=== PATIENT | male | born 1950 | race Caucasian/White ===

== ENCOUNTER → 2016-05-20 | Outpatient (CLI) | payer OTHER ==
[~2016-05-20] MED LIST: CITA20TA4 PO; FLUT0.15 NEB; GABA300C19 PO; INSUINJ4 SC; LVQ750 PO; METF-384 PO; MOME200A INH; MULT-506 PO; NAPR-1168 PO; PRAV40TA2 PO; PRLSR20 PO
--- NOTE | 2016-05-20 13:40 | DIAGNOSTIC IMAGING REPORT ---
TWO VIEW CHEST CLINICAL HISTORY: Preoperative examination. FINDINGS: PA and lateral chest radiographs are compared to study dated 03/06/2016. The cardiomediastinal silhouette is unremarkable. A fat-containing hernia is again noted at the left lung base. There is mild atherosclerotic calcification of the thoracic aorta. The lungs appear hyperinflated and hyperlucent with flattening the diaphragm suggesting obstructive physiology. No airspace consolidation or pleural effusion is seen. There is no pneumothorax. The bony thorax appears intact. A left shoulder arthroplasty is in place. IMPRESSION: Findings suggest obstructive physiology. There is no active disease in the chest. Electronically signed by: Saleem Fregoso M.D. 05/20/2016 1:38 PM
[2016-05-20 14:35] LABS: BASO % 0.5 %; BASO ABS # 0.03 K/uL (0-0.2); COMPLETE YES; EOS % 1.3 %; HEMATOCRIT 42.7 % (42-52); IG% 0.2 %; LYMPH % 18.5 %; LYMPH ABS # 1.13 K/uL (1.2-3.4); MEAN CORPUSCULAR HEMOGLOBIN 30.3 pg (25-34); MEAN CORPUSCULAR HGB CONC 34.4 g/dl (32-36); MEAN PLATELET VOLUME 9.8 fL (7.4-10.4); MONO % 10.2 %; NEUT % 69.3 %; PLATELET COUNT 268 K/uL (130-400); RED BLOOD COUNT 4.85 M/uL (4.7-6.1)
[2016-05-20 15:10] LABS: BLOOD UREA NITROGEN 13 mg/dl (7-18); BUN/CREATININE RATIO 12.6 (10-20); CALCIUM 9.2 mg/dl (8.5-10.1); CARBON DIOXIDE 29 mmol/L (21-32); CHLORIDE 102 mmol/L (98-107); GLUCOSE 176 mg/dl (70-99); POTASSIUM 4.9 mmol/L (3.5-5.1); SODIUM 139 mmol/L (136-145)
== END | disposition home or self-care (01) ==
LOC: C.CPL 12:51
PROVIDERS: ATTEND Orthopaedic Surgery
DX: Z01.812 Encounter for preprocedural laboratory examination (principal); Z01.810 Encounter for preprocedural cardiovascular examination; M75.81 Other shoulder lesions, right shoulder

== ENCOUNTER 2024-03-27 20:00 | Inpatient (IN) ==
--- OUTSIDE RECORDS SUMMARY | 2024-03-27 20:07 | External Medical Summary | Summary of Care ---
Author Name Unknown Organization [facility] Address [address] [facility] [place] [address] Phone [phone] Care Team Providers Care Director Of Assessing Name Role Phone Rolando Schultz MD Primary Care Provider [phone]- [phone] Reason for Visit * Reason Comments eRx-Medication Refill Encounter Details Date Type Department Care Team (Late st Contact Info) Description 01/15/2024 Refill [facility] [address] [place] [id number] Kayla Reich PA-C [address] [place] [address] Type 2 diabetes mellitus with hemoglobin A1c goal of less than 8.0% ([facility]) Allergies No known active allergiesdocumented as of this encounter (statuses as of 01/16/2024) Medications Medication Sig Dispensed Refills Start Date End Date Status MULTIVITAMINS PO CAPS Take 1 Capsule by mouth in the morning. Active fluticasone (FLONASE) 50 MCG/ACT nasal sprayIndications:Chr onic rhinitis Administer 2 Sprays into each nostril daily. 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 To affacted area for two weeks. 15 g 2 8 Active Insulin Pen Needle (BD PEN NEEDLE SHORT U/F) 31G X 8 MM Use to inject insulin twice per day 100 Each 3 8 Active Insulin Pen Needle (PEN NEEDLES 5/16") 31G X 8 MM MISC Use to inject insulin 100 Each 5 8 Active selenium sulfide 2.5 % lotion Apply topically to affected area daily as needed for Itching. 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 90 Tablet 1 4 Active metFORMIN HCl 1000 MG Oral Tablet (Glucophage)Indicati ons:Diabetic polyneuropathy associated with type 2 diabetes mellitus (HCC) take 1 tablet by mouth twice a day (with morning and evening meal) 180 Tablet 3 4 Active Atorvastatin Calcium 40 MG Oral Tablet (Lipitor)Indications :Dyslipidemia, goal LDL below 70 Take 1 Tablet by mouth daily. In the morning. 90 Tablet 1 4 Active Montelukast Sodium 10 MG Oral Tablet (Singulair)Indicatio ns:PND (post-nasal drip) Take 1 Tablet by mouth in the morning. In the morning.. 90 Tablet 1 4 Active Naproxen Sodium 550 MG Oral TabletIndications:Ch ronic pain of both shoulders Take 1 Tablet by mouth in the morning and 1 Tablet before bedtime. 180 Tablet 1 4 Active Citalopram Hydrobromide 20 MG Oral Tablet (CeleXA)Indications: Major depressive disorder with single episode, remission status unspecified Take 1 Tablet by mouth at bedtime. 90 Tablet 1 4 Active Lisinopril 2.5 MG Oral Tablet (Prinivil)Indication s:Essential hypertension with goal blood pressure less than 140/90 Take 1 Tablet by mouth in the morning. In the morning.. 90 Tablet 1 4 Active Cyclobenzaprine HCl 5 MG Oral Tablet (Flexeril)Indication s:Spasm of muscle Take 1 Tablet by mouth at bedtime as needed for Muscle spasms (back pain). 30 Tablet 4 Active Diclofenac Sodium 1 % External Gel (Voltaren)Indication s:Arthritis of carpometacarpal (CMC) joint of right thumb Apply topically to affected area 4 times a day. Apply to thumbs when sore - rub in well 350 g 1 4 Active Ketoconazole 2 % External Shampoo (Nizoral)Indications :Dandruff Apply topically to affected area daily as needed for Itching. Wash scalp with lather for 2-3 minutes, then rinse.Apply topically to affected area daily as needed for Itching. Wash scalp with lather for 2-3 minutes, then rinse. 360 mL 1 4 Active Fish Oil 1000 MG Oral CapsuleIndications:A rthritis of carpometacarpal (CMC) joint of right thumb Take 1 Capsule by mouth in the morning. 90 Capsule 1 4 Active Dulera 200-5 MCG/ACT Inhalation Aerosol (Mometasone-Formoter ol)Indications:Respi ratory abnormality 2 puffs twice each day and rinse mouth after use 36 g 1 4 Active Aspirin 81 MG Oral Tablet Chewable Take 1 Tablet by mouth in the morning. with food.. 90 Tablet 1 4 Active Famotidine 10 MG Oral Tablet (Acid Driller Machine) Take 1 Tablet by mouth in the morning. 90 Tablet 1 4 Active Gabapentin 300 MG Oral Capsule (Neurontin)Indicatio ns:Diabetic polyneuropathy associated with type 2 diabetes mellitus (HCC) TAKE 4 CAPSULES BY MOUTH ONCE DAILY 360 Capsule 4 Active Ozempic (1 MG/DOSE) 4 MG/3ML Subcutaneous Solution Pen-injector (Semaglutide (1 MG/DOSE))Indications :Type 2 diabetes mellitus with hemoglobin A1c goal of less than 8.0% (HCC) INJECT 1MG UNDER THE SKIN EVERY 7 DAYS 9 mL 1 4 Active Ozempic (1 MG/DOSE) 4 MG/3ML Subcutaneous Solution Pen-injector (Semaglutide (1 MG/DOSE))Indications :Type 2 diabetes mellitus with hemoglobin A1c goal of less than 8.0% ([facility]) Inject 1 mg under the skin once a week. 9 mL 1 4 01/16/20 24 Discontinued documented as of this encounter (statuses as of 01/16/2024) Active Problems Problem Noted Date Diagnosed Date Major depressive disorder with single episode Food insecurity 01/29/2021 Overview: Per [facility] Protocol Ulnar neuropathy at elbow, right 09/03/2018 Type 2 diabetes mellitus wit h hemoglobin A1c goal of less than 8.0% 02/02/2018 Diabetic polyneuropathy asso ciated with type 2 diabetes mellitus 08/11/2017 Lumbar degenerative disc disease 03/14/2016 Essential hypertension with goal blood pressure less than 140/90 02/28/2016 Benign familial tremor 08/21/2015 Chronic rhinitis 05/22/2015 Chews tobacco 05/22/2015 Dyslipidemia, goal LDL below 70 documented as of this encounter (statuses as of 01/16/2024) Resolved Problems Problem Noted Date Diagnosed Date Resolved Date Encounter for long-term (cur rent) use of medications 08/11/2017 02/02/2018 Risk and functional assessment 08/11/2017 02/02/2018 Respiratory abnormality 02/17/201707/18 Sepsis 03/14/2016 02/11/2017 Pneumonitis 03/14/2016 02/11/2017 MRSA infection 02/28/2016 02/11/2017 Rotator cuff tear arthropathy 02/20/2016 02/11/2017 Acute pain of right shoulder 02/07/2016 02/11/2017 HTN, goal below 140/90 10/30/201502/27 Overview: Per [facility] Protocol Type 2 diabetes mellitus wit h other diabetic neurological complication 08/21/2015 08/11/2017 HTN, goal below 140/80 08/21/201511/01 Overview: Per [facility] Protocol Screening for prostate cancer 08/21/2015 02/11/2017 Overweight (BMI 25.0-29.9) 05/22/2015 0 02/11/2017 Overview: bmi= 28.17 05/22/15 Diabetes mellitus 08/21/2015 Depression 02/11/2017 Overview: never hospitalized documented as of this encounter (statuses as of 01/16/2024) Immunizations Name Administration Dates Next Due COVID-19 mRNA, LNP-s, No Pre serve, 2-Dose Series (Pfizer) 03/06/2021,08/31/2020,08/10/2020 Pneumococcal Conjugate Vacc, 13 Valent (Prevnar) 04/07/2014 Pneumococcal Polysaccharide PPV23 (Pneumovax) 06/07/2020,11/28/2014 Seasonal Influenza, PF, 6 M & above, IM , (FluLaval or Fluzone) 02/21/2020,03/26/2019,02/02/2018,01/1803/26/2020 Seasonal Influenza, Quadriva lent Hd (Fluzone Hd) 08/07/2023,02/11/2022,02/13/2021 Seasonal Influenza, Quadriva lent, No Preserve, IM 02/07/2016,03/10/2015 Seasonal Influenza, Trivalen t, (IIV3), with Preserv, (Fluzone) 02/04/2014,02/17/2012,01/25/2009,05/2002,03/26/2001 TD - Tetanus/Diptheria (ADULT) 03/03/2014 TDAP (age 10 and older)(Boostrix) 04/04/2018, Varicella Zoster Vaccine (Adult) 02/16/2014 documented as of this encounter Social History Tobacco Use Types Packs/Day Years Used Date Smoking Tobacco: Never Smokeless Tobacco: Current Snuff Comments:began at age 18, 1 1/2 cans per week Alcohol Use Standard Drinks/Week Comments No 0 (1 standard drink = 0.6 oz pur e alcohol) none PHQ-2 Answer Date Recorded PHQ-2 Score 0 02/21/2020 Hunger Vital Sign Answer Date Recorded Worried About Running Out of Food in the Last Ye ar Never true 11/17/2018 Ran Out of Food in the Last Year Never true 11/17/2018 Sex and Gender Information Value Date Recorded Sex Assigned at Male 01/02/2021 3:20 PM EDT Gender Identity Male 01/02/2021 3:20 PM EDT Sexual Orientation Straight 01/02/2021 3: 12 PM EDT Job Start Date Occupation Industry Not on file Not on file Not on file documented as of this encounter Miscellaneous Notes * Telephone Encounter - Pram[facility] - 01/16/2024 12:29 PM EDTSigned Prescriptions: Disp Refills Ozempic (1 MG/DOSE) 4 MG/3ML Subcutaneous *9 mL 1 Sig: INJECT 1MG UNDER THE SKIN EVERY 7 DAYSAuthorizing Provider: KAYLA REICH AOradela User: PRAMOD RYAN documented in this encounter Plan of Treatment Upcoming Encounters Date Type Department Care Team (Late st Contact Info) Description 09/03/2024 1:30 PM EDT Office Visit Dermatology [facility] [address] [facility] [place] [address] Corey Delcid MD [address] [place] [address] Health Maintenance Due Date Last Done Comments Cologuard 1997 Fecal Occult Blood Test 1997 Sigmoidoscopy 1997 Zoster Vaccines (2 of 3) 04/13/2014 02/16/2014 Adult Wellness Visit 2018 Depression Monitoring 02/20/2021 02/21/2020 Colonoscopy 10/07/2021 10/08/2011 Colorectal Cancer Screening 10/07/2021 COVID-19 Vaccine ( season) 2023 03/06/2021, 08/31/2020, 08/10/2020 Influenza Vaccine (FLU shot) (#1) 2024 08/07/2023, 02/11/2022, 02/13/2021, Additional history exists Diabetic Eye Exam 02/07/2024 02/06/2023, , 12/13/2021, Additional history exists HbA1c 03/05/2024 09/04/2023, 04/19, 09/17/2021, Additional history exists B-12 05/07/2024 05/07/2023, 07/18, 05/23/2020, Additional history exists GFR 05/07/2024 05/07/2023, 05/0 06/2021, 12/06/2020, Additional history exists Diabetic Foot Exam 08/06/2024 08/07/2023, 0 08/07/2023, 01/02/2021, Additional history exists Albumin/Creatinine Ratio 09/03/2024 024, 05/07/2023, 09/17/2021, Additional history exists DTap/Tdap Vaccines (4 - Td or Tdap) 04/04/2028 04/04/2018, 03/03/2014, 03/02/2014 Lipid Panel 05/07/2028 05/07/2023, 07/18, 05/23/2020, Additional history exists Pneumococcal Vaccine: 65+ Years Completed 06/07/2020, 11/28/2014, 04/07/2014 HPV (Gardasil) Vaccine Aged Out No lo nger eligible based on patient's age to complete this topic Hepatitis B Vaccine Aged Out No longe r eligible based on patient's age to complete this topic MENINGOCOCCAL (MENACTRA/MENVEO) Aged Out No longer eligible based on patient's age to complete this topic documented as of this encounter Medical Devices Implanted Type Area Sciences Dean Device Identifier Shelf Expiration Date Model / Serial / Lot Sut Dalton Biocomp 4.75mm Min5 - [id number] Implanted:Qty: 2 on 06/03/2016 by Mario Dunlap DO at OR [facility] Right: Shoulder [employer] 12/16/2017 AR-2324BCC T / / [id number] 4.75x19.1mm Suture Dalton Implanted:Qty: 1 on 06/03/2016 by Mario Dunlap DO at OR [facility] Right: Shoulder 12/16/2017 AR-2324BCC TT / / [id number] Dalton Suture Biocomposite - [id number] Implanted:Qty: 3 on 06/03/2016 by Mario Dunlap DO at OR [facility] Right: Shoulder [employer] 12/16/2017 AR-2324BCC / / [id number] documented as of this encounter Visit Diagnoses Diagnosis Type 2 diabetes mellitus with hemoglobin A1c goal of less than 8.0% (HCC) documented in this encounter Advance Directives * Full Code (Latest Code Status on File) Date Activated Date Inactivated Comments 09/14/2018 9:05 AM 09/14/2018 3:13 PM This order r eflects the patients wishes and were consensually agreed upon. * Full Code Date Activated Date Inactivated Comments 06/03/2016 11:26 AM 06/03/2016 5:26 PM This order reflects the patients wishes and were consensually agreed upon. Question Answer Comments Discussion of Advance Directives occurred with: Not Discussed Does the patient have a Living Will? No Does the patient have Health Care Power of Attor gab? No Care Teams Director Of Assessing Relationship Specialty Start Date End Date Rolando Schultz MD [address] [place] [address] PCP - General Family Medicine 10/28/17 documented as of this encounter
--- OUTSIDE RECORDS SUMMARY | 2024-03-27 20:07 | External Medical Summary | Summary of Care ---
Author Name Unknown Organization [facility] Address [address] [facility] [place] [address] Phone [phone] Care Team Providers Care Sponsorship Coordinator Name Role Phone Rolando Schultz MD Primary Care Provider +1- [phone] Encounter Details Date Type Department Care Team (Late st Contact Info) Description 02/05/2024 Population Health External Data Unspecified Department Allergies No known active allergiesdocumented as of this encounter (statuses as of 02/09/2024) Medications Medication Sig Dispensed Refills Start Date End Date Status MULTIVITAMINS PO CAPS Take 1 Capsule by mouth in the morning. Active fluticasone (FLONASE) 50 MCG/ACT nasal sprayIndications:Film Developer jesse rhinitis Administer 2 Sprays into each nostril daily. 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 To affacted area for two weeks. 15 g 2 02/02/2018 Active Insulin Pen Needle (BD PEN NEEDLE SHORT U/F) 31G X 8 MM Use to inject insulin twice per day 100 Each 3 04/27/2018 Active Insulin Pen Needle (PEN NEEDLES 5/16") 31G X 8 MM MISC Use to inject insulin 100 Each 5 04/27/2018 Active selenium sulfide 2.5 % lotion Apply topically to affected area daily as needed for Itching. 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 90 Tablet 1 08/07/2023 Active metFORMIN HCl 1000 MG Oral Tablet (Glucophage)Indicatio ns:Diabetic polyneuropathy associated with type 2 diabetes mellitus (HCC) take 1 tablet by mouth twice a day (with morning and evening meal) 180 Tablet 3 08/07/2023 Active Atorvastatin Calcium 40 MG Oral Tablet (Lipitor)Indications: Dyslipidemia, goal LDL below 70 Take 1 Tablet by mouth daily. In the morning. 90 Tablet 08/07/2023 Active Montelukast Sodium 10 MG Oral Tablet (Singulair)Indication s:PND (post-nasal drip) Take 1 Tablet by mouth in the morning. In the morning.. 90 Tablet 08/07/2023 Active Naproxen Sodium 550 MG Oral TabletIndications:Chr onic pain of both shoulders Take 1 Tablet by mouth in the morning and 1 Tablet before bedtime. 180 Tablet 08/07/2023 Active Citalopram Hydrobromide 20 MG Oral Tablet (CeleXA)Indications:M ajor depressive disorder with single episode, remission status unspecified Take 1 Tablet by mouth at bedtime. 90 Tablet 1 08/07/2023 Active Lisinopril 2.5 MG Oral Tablet (Prinivil)Indications :Essential hypertension with goal blood pressure less than 140/90 Take 1 Tablet by mouth in the morning. In the morning.. 90 Tablet 1 08/07/2023 Active Cyclobenzaprine HCl 5 MG Oral Tablet (Flexeril)Indications :Spasm of muscle Take 1 Tablet by mouth at bedtime as needed for Muscle spasms (back pain). 30 Tablet 08/07/2023 Active Diclofenac Sodium 1 % External Gel (Voltaren)Indications :Arthritis of carpometacarpal (CMC) joint of right thumb Apply topically to affected area 4 times a day. Apply to thumbs when sore - rub in well 350 g 1 08/07/2023 Active Ketoconazole 2 % External Shampoo (Nizoral)Indications: Dandruff Apply topically to affected area daily as needed for Itching. Wash scalp with lather for 2-3 minutes, then rinse.Apply topically to affected area daily as needed for Itching. Wash scalp with lather for 2-3 minutes, then rinse. 360 mL 1 08/07/2023 Active Fish Oil 1000 MG Oral CapsuleIndications:Ar thritis of carpometacarpal (CMC) joint of right thumb Take 1 Capsule by mouth in the morning. 90 Capsule 1 08/07/2023 Active Dulera 200-5 MCG/ACT Inhalation Aerosol (Mometasone-Formotero l)Indications:Respira tory abnormality 2 puffs twice each day and rinse mouth after use 36 g 1 08/07/2023 Active Aspirin 81 MG Oral Tablet Chewable Take 1 Tablet by mouth in the morning. with food.. 90 Tablet 1 08/07/2023 Active Famotidine 10 MG Oral Tablet (Acid Product Expert) Take 1 Tablet by mouth in the morning. 90 Tablet 1 08/07/2023 Active Gabapentin 300 MG Oral Capsule (Neurontin)Indication s:Diabetic polyneuropathy associated with type 2 diabetes mellitus (HCC) TAKE 4 CAPSULES BY MOUTH ONCE DAILY 360 Capsule 12/17/2023 Active Ozempic (1 MG/DOSE) 4 MG/3ML Subcutaneous Solution Pen-injector (Semaglutide (1 MG/DOSE))Indications: Type 2 diabetes mellitus with hemoglobin A1c goal of less than 8.0% (HCC) INJECT 1MG UNDER THE SKIN EVERY 7 DAYS 9 mL 1 01/16/2024 Active documented as of this encounter (statuses as of 02/09/2024) Active Problems Problem Noted Date Diagnosed Date Major depressive disorder with single episode Food insecurity 01/29/2021 Overview: Per [facility] Protocol Ulnar neuropathy at elbow, right [...] as of this encounter (statuses as of 02/09/2024) Resolved Problems Problem Noted Date Diagnosed Date [...] as of this encounter (statuses as of 02/09/2024) Immunizations Name Administration Dates Next Due COVID-19 mRNA, LNP-s, No Pre serve, 2-Dose Series (Ubisense) 03/06/2021,08/31/2020,08/10/2020 Pneumococcal Conjugate Vacc, 13 Valent (Prevnar) 04/07/2014 Pneumococcal Polysaccharide PPV23 (Pneumovax) 06/07/2020,11/28/2014 Seasonal Influenza, PF, 6 M & above, IM , (FluLaval or Fluzone) 02/21/2020,03/26/2019,02/02/2018,01/1803/26/2020 Seasonal Influenza, Quadriva lent Hd (Fluzone Hd) 08/07/2023,02/11/2022,02/13/2021 Seasonal Influenza, Quadriva lent, No Preserve, IM 02/07/2016,03/10/2015 Seasonal Influenza, Trivalen t, (IIV3), with Preserv, (Fluzone) 02/04/2014,02/17/2012,01/25/2009,06/05/2002,03/26/2001 TD - Tetanus/Diptheria (ADULT) 03/03/2014 TDAP (age [...] on file documented as of this encounter Plan of Treatment Upcoming Encounters Date Type Department Care Team (Late st Contact Info) Description 09/03/2024 1:30 PM EDT Office Visit [facility] [address] [place] [address] Corey Delcid MD [address] [place] [address] Health Maintenance Due Date Last Done Comments Cologuard 1997 Fecal Occult Blood Test 1997 Sigmoidoscopy 1997 Zoster Vaccines (2 of 3) 04/13/2014 02/16/2014 Adult Wellness Visit 2018 Depression Monitoring 02/20/2021 02/21/2020 Colonoscopy 10/07/2021 10/08/2011 Colorectal Cancer Screening 10/07/2021 COVID-19 Vaccine ( season) 2024 03/06/2021, 08/31/2020, 08/10/2020 Influenza Vaccine (FLU shot) (#1) 2024 08/07/2023, 02/11/2022, 02/13/2021, Additional history exists Diabetic Eye Exam 02/07/2024 02/06/2023, , 12/13/2021, Additional history exists HbA1c 03/05/2024 09/04/2023, 04/19, 09/17/2021, Additional history exists B-12 05/07/2024 05/07/2023, 2 08/2021, 05/23/2020, Additional history exists GFR 05/07/2024 05/07/2023, [...] this encounter Medical Devices Implanted Type Area Real Estate Broker Device Identifier Shelf Expiration Date Model / Serial / Lot Sut Graham Biocomp 4.75mm Min5 - [id number] Implanted:Qty: 2 on 06/03/2016 by Mario Dunlap DO at OR [facility] Right: Shoulder [employer] 12/16/2017 AR-2324BCC T / / [id number] 4.75x19.1mm Suture Graham Implanted:Qty: 1 on 06/03/2016 by Mario Dunlap DO at OR [facility] Right: Shoulder 12/16/2017 AR-2324BCC TT / / [id number] Graham Suture Biocomposite - [id number] Implanted:Qty: 3 on 06/03/2016 by Mario Dunlap DO at OR [facility] Right: Shoulder [employer] 12/16/2017 AR-2324BCC / / [id number] documented as of this encounter Advance Directives * Full Code [...] Power of Attor gab? No Care Teams Sponsorship Coordinator Relationship Specialty Start Date End Date Rolando Schultz MD [address] [place] [address] PCP - General Family Medicine 10/28/17 documented as of this encounter
--- OUTSIDE RECORDS SUMMARY | 2024-03-27 20:07 | External Medical Summary | Summary of Care ---
Author Name Unknown Organization [facility] Address [address] [facility] [place] [address] Phone [phone] Care Team Providers Care Coconut Candy Maker Name Role Phone Rolando Schultz MD Primary Care Provider +1- [phone] Reason for Visit * Reason Comments eRx-Medication Refill Encounter Details Date Type Department Care Team (Late st Contact Info) Description 03/11/2024 Refill [facility] [address] [place] [id number] Kayla Reich PA-C [address] [place], [place] [id number] Diabetic polyneuropathy associated with type 2 diabetes mellitus (HCC) Allergies No known active allergiesdocumented as of this encounter (statuses as of 03/12/2024) Medications Medication Sig Dispensed Refills Start Date [...] daily 90 Each 11 8 Active nystatin 894863 UNIT/GM ointmentIndications: Cutaneous candidiasis Apply topically to [...] and rinse mouth after use 36 g 4 Active Aspirin 81 MG Oral Tablet Chewable Take 1 Tablet by mouth in the morning. with food.. 90 Tablet 1 4 Active Famotidine 10 MG Oral Tablet (Acid Banjo Repair Person) Take 1 Tablet by mouth in the morning. 90 Tablet 1 4 Active Ozempic (1 MG/DOSE) 4 MG/3ML Subcutaneous Solution Pen-injector (Semaglutide (1 MG/DOSE))Indications :Type 2 diabetes mellitus with hemoglobin A1c goal of less than 8.0% ([facility]) INJECT 1MG UNDER THE SKIN EVERY 7 DAYS 9 mL 1 4 Active Gabapentin 300 MG Oral Capsule (Neurontin)Indicatio ns:Diabetic polyneuropathy associated with type 2 diabetes mellitus (HCC) TAKE 4 CAPSULES BY MOUTH ONCE DAILY 360 Capsule 4 Active Gabapentin 300 MG Oral Capsule (Neurontin)Indicatio ns:Diabetic polyneuropathy associated with type 2 diabetes mellitus (HCC) TAKE 4 CAPSULES BY MOUTH ONCE DAILY 360 Capsule 4 03/12/20 24 Discontinued documented as of this encounter (statuses as of 03/12/2024) Active Problems Problem Noted Date Diagnosed Date [...] as of this encounter (statuses as of 03/12/2024) Resolved Problems Problem Noted Date Diagnosed Date Resolved Date Encounter for long-term (cur rent) use of medications 08/11/2017 02/02/2018 Risk and functional assessment 08/11/2017 02/02/2018 Respiratory abnormality 02/17/2017 03/2 10/2017 Sepsis 03/14/2016 02/11/2017 Pneumonitis 03/14/2016 02/11/2017 MRSA [...] as of this encounter (statuses as of 03/12/2024) Immunizations Name Administration Dates Next Due COVID-19 mRNA, LNP-s, No Pre serve, 2-Dose Series ([facility]) 03/06/2021,08/31/2020,08/10/2020 Pneumococcal Conjugate Vacc, 13 Valent (Prevnar) 04/07/2014 Pneumococcal Polysaccharide PPV23 (Pneumovax) 06/07/2020,11/28/2014 Seasonal Influenza Vac., MDV , IM, 0.5 mL (Fluzone) 02/04/2014,02/17/2012,01/25/2009,05/2002,03/26/2001 Seasonal Influenza, PF, 6 M & above, IM , (FluLaval or Fluzone) 02/21/2020,03/26/2019,02/02/2018,01/1803/26/2020 Seasonal Influenza, Quadriva lent Hd (Fluzone Hd) 08/07/2023,02/11/2022,02/13/2021 Seasonal Influenza, Quadriva lent, No Preserve, IM 02/07/2016,03/10/2015 TD - Tetanus/Diptheria (ADULT) 03/03/2014 TDAP (age [...] encounter Miscellaneous Notes * Telephone Encounter - Kayla Reich PA-C - 03/12/2024 4:20 PM EDTSigned Prescriptions: Disp Refills Gabapentin 300 MG Oral Capsule (Neurontin) 360 Ca*0 Sig: TAKE 4 CAPSULES BY MOUTH ONCE DAILY Authorizing Provider: KAYLA REICH * Telephone Encounter - Shannon Chang LPN - 03/12/2024 8:21 AM EDTPending Prescriptions: Disp Refills Gabapentin 300 MG Oral Capsule 360 Ca*0 Sig: TAKE 4 CAPSULES BY MOUTH ONCE DAILY * Telephone Encounter - Susana Harvey - 03/11/2024 1:06 PM EDTPending Prescriptions: Disp Refills Gabapentin 300 MG Oral Capsule 360 Ca*0 Sig: TAKE 4 CAPSULES BYMOUTH ONCE DAILY documented in this encounter Plan of Treatment Upcoming Encounters Date Type Department Care Team (Late [facility]) Description 09/03/2024 1:30 PM EDT Office Visit Dermatology [facility] [address] [place] [address] Corey Delcid MD [address] [place] [address] Health Maintenance Due Date Last Done Comments Cologuard 1997 Fecal Occult Blood Test 1997 Sigmoidoscopy 1997 Zoster Vaccines (2 of 3) 04/13/2014 02/16/2014 Adult Wellness Visit 2018 Depression Monitoring 02/20/2021 02/21/2020 Colonoscopy 10/07/2021 10/08/2011 Colorectal Cancer Screening 10/07/2021 COVID-19 Vaccine ( season) 2024 03/06/2021, 08/31/2020, 08/10/2020 Influenza Vaccine (FLU shot) (#1) 2024 08/07/2023, 02/11/2022, 02/13/2021, Additional history exists HbA1c 03/05/2024 09/04/2023, 04/19, 09/17/2021, Additional history exists B-12 05/07/2024 05/07/2023, 07/18, 05/23/2020, Additional history exists GFR 05/07/2024 05/07/2023, 05/0 06/2021, 12/06/2020, Additional history exists Diabetic Foot Exam 08/06/2024 08/07/2023, 0 08/07/2023, 01/02/2021, Additional history exists Albumin/Creatinine Ratio 09/03/2024 024, 05/07/2023, 09/17/2021, Additional history exists Diabetic Eye Exam 02/08/2025 02/09/2024, , 02/09/2024 (Done elsewhere), Additional history exists DTap/Tdap Vaccines (4 - [...] this encounter Medical Devices Implanted Type Area Spin Table Operator Device Identifier Shelf Expiration Date Model / Serial / Lot Sut Sedan Biocomp 4.75mm Min5 - [id number] Implanted:Qty: 2 on 06/03/2016 by Mario Dunlap DO at OR [facility] Right: Shoulder [employer] 12/16/2017 AR-2324BCC T / / [id number] 4.75x19.1mm Suture Sedan Implanted:Qty: 1 on 06/03/2016 by Mario Dunlap DO at OR [facility] Right: Shoulder 12/16/2017 AR-2324BCC TT / / [id number] Sedan Suture Biocomposite - [id number] Implanted:Qty: 3 on 06/03/2016 by Mario Dunlap DO at OR [facility] Right: Shoulder [employer] 12/16/2017 AR-2324BCC / / [id number] documented as of this encounter Visit Diagnoses Diagnosis Diabetic polyneuropathy associated with type 2 diabetes mellitus (HCC) documented in this encounter Advance Directives [...] Power of Attor gab? No Care Teams Coconut Candy Maker Relationship Specialty Start Date End Date Rolando Schultz MD [address] [place] [address] PCP - General Family Medicine 10/28/17 documented as of this encounter
--- OUTSIDE RECORDS SUMMARY | 2024-03-27 20:07 | External Medical Summary | Summary of Care ---
Author Name Unknown Organization [facility] Address [address] [facility] [place] [address] Phone [phone] Care Team Providers Care Commercial Loan Collection Officer Name Role Phone Rolando Schultz MD Primary Care Provider +1- [phone] Reason for Visit * Reason Onset Date Comments Health Maintenance 02/12/2024 Encounter Details Date Type Department Care Team (Late st Contact Info) Description 02/12/2024 Telephone [facility] [address] [place] [address] Rolando Schultz MD [address] [place] [address] Health Maintenance Allergies No known active allergiesdocumented as of this encounter (statuses as of 02/12/2024) Medications Medication Sig Dispensed Refills Start Date End Date Status MULTIVITAMINS PO CAPS Take 1 Capsule by mouth in the morning. Active fluticasone (FLONASE) 50 MCG/ACT nasal sprayIndications:Material Handler Floorperson jesse rhinitis Administer 2 Sprays into each nostril daily. 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 90 Tablet 08/07/2023 Active metFORMIN HCl 1000 MG Oral [...] Tablet by mouth at bedtime. 90 Tablet 08/07/2023 Active Lisinopril 2.5 MG Oral Tablet (Prinivil)Indications :Essential hypertension with goal blood pressure less than 140/90 Take 1 Tablet by mouth in the morning. In the morning.. 90 Tablet 08/07/2023 Active Cyclobenzaprine HCl 5 MG Oral [...] Active Famotidine 10 MG Oral Tablet (Acid Dean Of Men) Take 1 Tablet by mouth in the [...] as of this encounter (statuses as of 02/12/2024) Active Problems Problem Noted Date Diagnosed Date [...] as of this encounter (statuses as of 02/12/2024) Resolved Problems Problem Noted Date Diagnosed Date [...] as of this encounter (statuses as of 02/12/2024) Immunizations Name Administration Dates Next Due COVID-19 mRNA, LNP-s, No Pre serve, 2-Dose Series ([facility] 03/06/2021,08/31/2020,08/10/2020 Pneumococcal Conjugate Vacc, 13 Valent (Prevnar) [...] encounter Miscellaneous Notes * Telephone Encounter - Arleen ZavalaALEJANDRO - 02/12/2024 8:17 AM EDT Care Gaps Comprehensive Care Outreach Last Office/Telemedicine Visit: 08/07/2023 (in office), Visit date not found (telemedicine) Next Office Visit: Visit date not found Hemoglobin AIC Results: Lab Results Component Value Date/Time HEMOGLOBIN A1C - [facility] 7.7 (H) 09/04/2023 10:54 AM HEMOGLOBIN A1C - [facility] 8.2 (H) 05/07/2023 11:04 AM HEMOGLOBIN A1C - [facility] 7.5 (H) 09/17/2021 01:30 PM HEMOGLOBIN A1C - [facility] 7.9 (H) 05/23/2020 08:56 AM HEMOGLOBIN A1C - [facility] 7.7 (H) 12/01/2019 11:59 AM HEMOGLOBIN A1C - [facility] 7.7 (H) 01/28/2019 09:08 AM BP Readings from Last 1 Encounters: 08/07/23 130/62 Reviewed Health Maintenance below: Health Maintenance Topic Date Due Zoster Vaccines (2 of 3) 04/13/2014 Adult Wellness Visit Never done Depression Monitoring 02/20/2021 Colorectal Cancer Screening 10/07/2021 Influenza Vaccine (FLU shot) (1) 01/18/2024 COVID-19 Vaccine ( season) 2024 HbA1c 03/05/2024 GFR 05/07/2024 B-12 05/07/2024 Ov 6 months now Labs now and dec colon Care Gap Outreach Action Taken: Left message documented in this encounter Plan of Treatment Upcoming Encounters Date Type Department Care Team (Late st Contact Info) Description 09/03/2024 1:30 PM EDT Office Visit Dermatology [facility] [place] [address] [facility] [place] [address] Corey Delcid MD [address] [facility] [place] [address] Health Maintenance Due Date Last Done Comments [...] 05/23/2020, Additional history exists GFR 05/07/2024 05/07/2023, 06/2021, 12/06/2020, Additional history exists Diabetic Foot Exam 08/06/2024 08/07/2023, 0 08/07/2023, 01/02/2021, Additional history exists Albumin/Creatinine Ratio 09/03/2024 024, 05/07/2023, 09/17/2021, Additional history exists Diabetic Eye Exam 02/08/2025 02/09/2024 (Do ne elsewhere), 02/06/2023, 02/06/2023, Additional history exists DTap/Tdap Vaccines (4 - [...] this encounter Medical Devices Implanted Type Area Tennis Ball Coverer Hand Device Identifier Shelf Expiration Date Model / Serial / Lot Sut [place] Biocomp 4.75mm Min5 - [id number] Implanted:Qty: 2 on 06/03/2016 by Mario Dunlap DO at OR [facility] Right: Shoulder [employer] 12/16/2017 AR-2324BCC T / / [id number] 4.75x19.1mm Suture [place] Implanted:Qty: 1 on 06/03/2016 by Mario Dunlap DO at OR [facility] Right: Shoulder 12/16/2017 AR-2324BCC TT / / [id number] [place] Suture Biocomposite - [id number] Implanted:Qty: 3 on 06/03/2016 by Mario Dunlap, at OR [facility] Right: Shoulder [employer] 12/16/2017 AR-2324BCC / / [id number] documented as of this encounter Advance Directives [...] Power of Attor gab? No Care Teams Commercial Loan Collection Officer Relationship Specialty Start Date End Date Rolando Schultz MD [address] [place] [address] PCP - General Family Medicine 10/28/17 documented as of this encounter
--- OUTSIDE RECORDS SUMMARY | 2024-03-27 20:07 | External Medical Summary | Summary of Care ---
Author Name Unknown Organization [facility] Address [address] [facility] [place] [address] Phone [phone] Care Team Providers Care Cleaning Professional Name Role Phone Rolando Schultz MD Primary Care Provider +1- [phone] Reason for Visit * Reason Onset Date Comments Medication Refill 12/16/2023 Encounter Details Date Type Department Care Team (Late st Contact Info) Description 12/16/2023 Refill [facility] [address] [place] [address] Rolando Schultz MD [address] [place] [address] Diabetic polyneuropathy associated with type 2 diabetes mellitus (HCC) Allergies No known active allergiesdocumented as of this encounter (statuses as of 12/17/2023) Medications Medication Sig Dispensed Refills Start Date [...] daily 90 Each 11 10/08/2017 Active nystatin 171242 UNIT/GM ointmentIndications: Cutaneous candidiasis Apply topically to [...] armpits daily 118 mL 5 11/04/2018 Active Symtavision ULTRA STRPIndications:Type 2 diabetes mellitus with other diabetic neurological complication (HCC) USE TO TEST BLOOD GLUCOSE 4 TIMES DAILY NEEDED FOR HIGH OR LOW SUGAR 400 Strip 3 12/15/2019 Active Empagliflozin 25 MG Oral Tablet (Jardiance)Indicatio ns:Type 2 diabetes mellitus with hemoglobin A1c goal of less than 8.0% (HCC) Take 1 Tablet by mouth in the morning. 90 Tablet 08/07/2023 Active metFORMIN HCl 1000 MG Oral Tablet (Glucophage)Indicati ons:Diabetic polyneuropathy associated with type 2 diabetes mellitus (HCC) take 1 tablet by mouth twice a day (with morning and evening meal) 180 Tablet 08/07/2023 Active Atorvastatin Calcium 40 MG Oral Tablet (Lipitor)Indications :Dyslipidemia, goal LDL below 70 Take 1 Tablet by mouth daily. In the morning. 90 Tablet 1 08/07/2023 Active Montelukast Sodium 10 MG Oral Tablet (Singulair)Indicatio ns:PND (post-nasal drip) Take 1 Tablet by mouth in the morning. In the morning.. 90 Tablet 08/07/2023 Active Naproxen Sodium 550 MG Oral TabletIndications:Ch ronic pain of both shoulders Take 1 Tablet by mouth in the morning and 1 Tablet before bedtime. 180 Tablet 08/07/2023 Active Citalopram Hydrobromide 20 MG Oral Tablet (CeleXA)Indications: Major depressive disorder with single episode, remission status unspecified Take 1 Tablet by mouth at bedtime. 90 Tablet 1 08/07/2023 Active Lisinopril 2.5 MG Oral Tablet (Prinivil)Indication [...] sore - rub in well 350 g 08/07/2023 Active Ketoconazole 2 % External Shampoo (Nizoral)Indications :Dandruff Apply topically to affected area daily as needed for Itching. Wash scalp with lather for 2-3 minutes, then rinse.Apply topically to affected area daily as needed for Itching. Wash scalp with lather for 2-3 minutes, then rinse. 360 mL 08/07/2023 Active Fish Oil 1000 MG Oral CapsuleIndications:A rthritis of carpometacarpal (CMC) joint of right thumb Take 1 Capsule by mouth in the morning. 90 Capsule 08/07/2023 Active Ozempic (1 MG/DOSE) 4 MG/3ML Subcutaneous Solution Pen-injector (Semaglutide (1 MG/DOSE))Indications :Type 2 diabetes mellitus with hemoglobin A1c goal of less than 8.0% ([facility]) Inject 1 mg under the skin once a week. 9 mL 08/07/2023 Active Dulera 200-5 MCG/ACT Inhalation Aerosol (Mometasone-Formoter ol)Indications:Respi ratory abnormality 2 puffs twice each day and rinse mouth after use 36 g 08/07/2023 Active Aspirin 81 MG Oral Tablet Chewable Take 1 Tablet by mouth in the morning. with food.. 90 Tablet 08/07/2023 Active Famotidine 10 MG Oral Tablet (Acid Meter Tester) Take 1 Tablet by mouth in the morning. 90 Tablet 08/07/2023 Active Gabapentin 300 MG Oral Capsule (Neurontin)Indicatio ns:Diabetic polyneuropathy associated with type 2 diabetes mellitus (HCC) TAKE 4 CAPSULES BY MOUTH ONCE DAILY 360 Capsule 12/17/2023 Active Gabapentin 300 MG Oral Capsule (Neurontin)Indicatio ns:Diabetic polyneuropathy associated with type 2 diabetes mellitus (HCC) TAKE 4 CAPSULES BY MOUTH ONCE DAILY 120 Capsule 11/17/2023 12/16/19 24 Discontinu ed(Refill) documented as of this encounter (statuses as of 12/17/2023) Active Problems Problem Noted Date Diagnosed Date [...] as of this encounter (statuses as of 12/17/2023) Resolved Problems Problem Noted Date Diagnosed Date [...] as of this encounter (statuses as of 12/17/2023) Immunizations Name Administration Dates Next Due COVID-19 mRNA, LNP-s, No Pre serve, 2-Dose Series (Pfizer) 03/06/2021,08/31/2020,08/10/2020 Pneumococcal Conjugate Vacc, 13 Valent (Prevnar) 04/07/2014 Pneumococcal Polysaccharide PPV23 (Pneumovax) 06/07/2020,11/28/2014 Seasonal Influenza, PF, 6 M & above, IM , (FluLaval or Fluzone) 02/21/2020,03/26/2019,02/02/2018,01/1803/26/2020 Seasonal Influenza, Quadriva lent Hd (Fluzone Hd) 08/07/2023,02/11/2022,02/13/2021 Seasonal Influenza, Quadriva lent, No Preserve, IM 02/07/2016,03/10/2015 Seasonal Influenza, Split, I IV3, With Preserve, Inj 02/04/2014,02/17/2012,01/25/2009,06/05/2002,03/26/2001 TD - Tetanus/Diptheria (ADULT) 03/03/2014 TDAP [...] Telephone Encounter - Kayla Reich PA-C - 12/17/2023 4:38 PM EDTSigned Prescriptions: Disp Refills Gabapentin 300 MG Oral Capsule (Neurontin) 360 Ca*0 Sig: TAKE 4 CAPSULES BY MOUTH ONCE DAILY Authorizing Provider: KAYLA REICH * Telephone Encounter - Rolando Schultz MD - 12/17/2023 4:37 PM EDTPending Prescriptions: Disp Refills Gabapentin 300 MG Oral Capsule (Neurontin) 360 Ca*0 Sig: TAKE 4 CAPSULES BY MOUTH ONCE DAILY * Telephone Encounter - Shannon Chang LPN - 12/17/2023 1:08 PM EDTPending Prescriptions: Disp Refills Gabapentin 300 MG Oral Capsule (Neurontin) 360 Ca*0 Sig: TAKE 4 CAPSULES BY MOUTH ONCE DAILY * Telephone Encounter - Susana Harvey - 12/16/2023 11:33 PM EDTPending Prescriptions: Disp Refills Gabapentin 300 MG Oral Capsule (Neurontin) 120 Ca*0 Sig: TAKE 4CAPSULES BY MOUTH ONCE DAILY documented in this encounter Plan of Treatment Upcoming Encounters Date Type Department Care Team (Late st Contact Info) Description 09/03/2024 1:30 PM EDT Office Visit Dermatology [facility] [place] [address] [place] [address] Corey Delcid MD [address] [facility] [place] [address] Health Maintenance Due Date Last Done Comments Cologuard 1997 Fecal Occult Blood Test 1997 Sigmoidoscopy 1997 Zoster Vaccines (2 of 3) 04/13/2014 02/16/2014 Depression Monitoring 02/20/2021 02/21/2020 Colonoscopy 10/07/2021 10/08/2011 [...] 09/03/2024 024, 05/07/2023, 09/17/2021, Additional history exists DTaP,Tdap,and Td Vaccines (4 - Td or Tdap) 04/04/2028 04/04/2018, 03/03/2014, 03/02/2014 Lipid Panel 05/07/2028 05/07/2023, 07/18, 05/23/2020, Additional history exists Hepatitis C Screening Completed 02/22/2016 *BASELINE EKG FOR HTN Completed 11/17/2018, 017 Pneumococcal Vaccine: 65+ Years Completed 06/07/2020, 11/28/2014, [...] this encounter Medical Devices Implanted Type Area Management Instructor Device Identifier Shelf Expiration Date Model / Serial / Lot Sut [place] Biocomp 4.75mm Min5 - [id number] Implanted:Qty: 2 on 06/03/2016 by Mario Dunlap DO at OR [facility] Right: Shoulder [employer] 12/16/2017 AR-2324BCC T / / [id number] 4.75x19.1mm Suture [place] Implanted:Qty: 1 on 06/03/2016 by Mario Dunlap DO at OR [facility] Right: Shoulder 12/16/2017 AR-2324BCC TT / / [id number] [place] Suture Biocomposite - [id number] Implanted:Qty: 3 on 06/03/2016 by Mario Dunlap DO at OR [facility] Right: Shoulder [employer] 12/16/2017 AR-2324BCC / / [id number] documented as of this encounter Visit Diagnoses [...] Power of Attor gab? No Care Teams Cleaning Professional Relationship Specialty Start Date End Date Rolando Schultz MD [address] [place] [address] PCP - General Family Medicine 10/28/17 documented as of this encounter
--- OUTSIDE RECORDS SUMMARY | 2024-03-27 20:07 | External Medical Summary | Summary of Care ---
Author Name Unknown Organization [facility] Address [address] [facility] [place] [address] Phone [phone] Care Team Providers Care Quality Facilitator Name Role Phone Rolando Schultz MD Primary Care Provider +1- [phone] Encounter Details Date Type Department Care Team (Late st Contact Info) Description 02/18/2024 Orders Only [facility] [address] [place] [address] Kayla Reich PA-C [address] [place] [address] Allergies No known active allergiesdocumented as of this encounter (statuses as of 02/18/2024) Medications Medication Sig Dispensed Refills Start Date End Date Status MULTIVITAMINS PO CAPS Take 1 Capsule by mouth in the morning. Active fluticasone (FLONASE) 50 MCG/ACT nasal sprayIndications:Director Day Care Center jesse rhinitis Administer 2 Sprays into each nostril daily. 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) Test bsg 2 - 3 times daily 90 Each 11 10/08/2017 Active nystatin 397128 UNIT/GM ointmentIndications:C utaneous candidiasis Apply topically to [...] armpits daily 118 mL 5 11/04/2018 Active Zapa ULTRA STRPIndications:Type 2 diabetes mellitus with other [...] Active Famotidine 10 MG Oral Tablet (Acid Coding Assistant) Take 1 Tablet by mouth in the [...] as of this encounter (statuses as of 02/18/2024) Active Problems Problem Noted Date Diagnosed Date Major depressive disorder with single episode Food insecurity 01/29/2021 Overview: Per [facility] Protocol Ulnar neuropathy at elbow, right [...] as of this encounter (statuses as of 02/18/2024) Resolved Problems Problem Noted Date Diagnosed Date [...] as of this encounter (statuses as of 02/18/2024) Immunizations Name Administration Dates Next Due COVID-19 [...] State Cheryl Vasquez [address] [place] [address] Corey Delcid MD [address] [place] [address] [address] Health Maintenance Due Date Last Done Comments [...] 09/17/2021, Additional history exists Diabetic Eye Exam 02/17/2025 02/09/2024, (Done elsewhere), 02/06/2023, Additional history exists DTap/Tdap Vaccines (4 [...] this encounter Medical Devices Implanted Type Area Cutting Department Supervisor Device Identifier Shelf Expiration Date Model / Serial / Lot Sut [place] Biocomp 4.75mm Min5 - [id number] Implanted:Qty: 2 on 06/03/2016 by Mario Dunlap DO at OR [facility] Right: Shoulder [employer] 12/16/2017 AR-2324BCC T / / [id number] 4.75x19.1mm Suture [place] Implanted:Qty: 1 on 06/03/2016 by Mario Dunlap DO at OR [facility] Right: Shoulder 12/16/2017 AR-2324BCC TT / / [id number] [place] Suture Biocomposite - [id number] Implanted:Qty: 3 on 06/03/2016 by Mario Dunlap DO at OR [facility] [address] Right: Shoulder [employer] 12/16/2017 AR-2324BCC / / [id number] documented as of this encounter Procedures Procedure Name Priority Date/Time Associated Diagnosis Comments DIABETIC EYE EXAM Routine 02/09/2024 documented in this encounter Results * DIABETIC EYE EXAM (02/09/2024) 02/09/2024 History Per Patient OTHER OUTSIDE LAB (SEE SCANNED REPORT) documented in this encounter Advance Directives * [...] Power of Attor gab? No Care Teams Quality Facilitator Relationship Specialty Start Date End Date Rolando Schultz MD [address] [place] [id number] PCP - General Family Medicine 10/28/17 documented as of this encounter
--- OUTSIDE RECORDS SUMMARY | 2024-03-27 20:07 | External Medical Summary | Summary of Care ---
Author Name Unknown Organization [facility] Address [address] [facility] [place] [address] Phone [phone] Care Team Providers Care Radio Antenna Installer Name Role Phone Rolando Schultz MD Primary Care Provider +1- [phone] Encounter Details Date Type Department Care Team (Late st Contact Info) Description 03/02/2024 Population Health External Data Unspecified Department Allergies No known active allergiesdocumented as of this encounter (statuses as of 03/03/2024) Medications Medication Sig Dispensed Refills Start Date End Date Status MULTIVITAMINS PO CAPS Take 1 Capsule by mouth in the morning. Active fluticasone (FLONASE) 50 MCG/ACT nasal sprayIndications:Baton Teacher jesse rhinitis Administer 2 Sprays into each nostril daily. 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) Test bsg 2 - 3 times daily 90 Each 11 10/08/2017 Active nystatin 732378 UNIT/GM ointmentIndications:C utaneous candidiasis Apply topically to [...] Active Famotidine 10 MG Oral Tablet (Acid Chief Dispatcher) Take 1 Tablet by mouth in the [...] as of this encounter (statuses as of 03/03/2024) Active Problems Problem Noted Date Diagnosed Date Major depressive disorder with single episode Food insecurity 01/29/2021 Overview: Per [facility] Protocol Ulnar neuropathy at elbow, right [...] as of this encounter (statuses as of 03/03/2024) Resolved Problems Problem Noted Date Diagnosed Date Resolved Date Encounter for long-term (cur rent) use of medications 08/11/2017 02/02/2018 Risk and functional assessment 08/11/2017 02/02/2018 Respiratory abnormality 02/17/2017 0310/2017 Sepsis 03/14/2016 02/11/2017 Pneumonitis 03/14/2016 02/11/2017 MRSA [...] as of this encounter (statuses as of 03/03/2024) Immunizations Name Administration Dates Next Due COVID-19 mRNA, LNP-s, No Pre serve, 2-Dose Series (GlideTV) 03/06/2021,08/31/2020,08/10/2020 Pneumococcal Conjugate Vacc, 13 Valent (Prevnar) 04/07/2014 Pneumococcal Polysaccharide PPV23 (Pneumovax) 06/07/2020,11/28/2014 Seasonal Influenza Vac., MDV , IM, 0.5 mL (Fluzone) 02/04/2014,02/17/2012,01/25/2009,06/0 05/2002,03/26/2001 Seasonal Influenza, PF, 6 M & above, [...] Office Visit Dermatology [facility] Vasquez [address] [place] [address] Corey Delcid MD [address] [place] [address] Health Maintenance Due Date Last Done Comments [...] history exists Diabetic Eye Exam 02/08/2025 02/09/2024, (Done elsewhere), 02/06/2023, Additional history exists [...] this encounter Medical Devices Implanted Type Area Damper Fitter Device Identifier Shelf Expiration Date Model / Serial / Lot Sut [place] Biocomp 4.75mm Min5 - [id number] Implanted:Qty: 2 on 06/03/2016 by Mario Dunlap DO at OR [facility] Right: Shoulder [employer] 12/16/2017 AR-2324BCC T / / [id number] 4.75x19.1mm Suture [place] Implanted:Qty: 1 on 06/03/2016 by Mario Dunlap DO at OR [facility] Right: Shoulder 12/16/2017 AR-2324BCC TT / / [id number] [place] Suture Biocomposite - [id number] Implanted:Qty: 3 on 06/03/2016 by Mario Dunlap DO at OR [facility] Right: Shoulder [employer] 12/16/2017 AR-2324BCC / / [id number] documented as of this encounter Advance Directives [...] Power of Attor gab? No Care Teams Radio Antenna Installer Relationship Specialty Start Date End Date Rolando Schultz MD [address] [place] [address] PCP - General Family Medicine 10/28/17 documented as of this encounter
--- OUTSIDE RECORDS SUMMARY | 2024-03-27 20:08 | External Medical Summary | Summary of Care ---
Author Name Unknown Organization [facility] Address [address] [facility] [place] [address] Phone [phone] Care Team Providers Care Dispatch Officer Name Role Phone Dima Zelaya MD Primary Care Provider +1- [phone] Reason for Visit * Reason Onset Date Comments Medication Refill 11/14/2023 Encounter Details Date Type Department Care Team (Late st Contact Info) Description 11/14/2023 Refill [facility] [address] [place] [id number] Kayla Reich PA-C [address] [place] [address] Type 2 diabetes mellitus with hemoglobin A1c goal of less than 8.0% (HCC); Dyslipidemia, goal LDL below 70; Chronic pain of both shoulders; Respiratory abnormality; Diabetic polyneuropathy associated with type 2 diabetes mellitus (HCC) Allergies No known active allergiesdocumented as of this encounter (statuses as of 11/17/2023) Medications Medication Sig Dispensed Refills Start Date [...] daily 90 Each 11 10/08/2017 Active nystatin 435491 UNIT/GM ointmentIndications: Cutaneous candidiasis Apply topically to [...] the morning.. 90 Tablet 1 08/07/2023 Active Naproxen Sodium 550 MG Oral TabletIndications:Ch ronic pain of both shoulders Take 1 Tablet by mouth in the morning and 1 Tablet before bedtime. 180 Tablet 1 08/07/2023 Active Citalopram Hydrobromide 20 MG Oral [...] goal of less than 8.0% ([facility]) Inject 1 mg under the [...] Active Famotidine 10 MG Oral Tablet (Acid Economic Development Director) Take 1 Tablet by mouth in the morning. 90 Tablet 08/07/2023 Active Gabapentin 300 MG Oral Capsule (Neurontin)Indicatio ns:Diabetic polyneuropathy associated with type 2 diabetes mellitus (HCC) TAKE 4 CAPSULES BY MOUTH ONCE DAILY 120 Capsule 11/17/2023 Active Gabapentin 300 MG Oral Capsule (Neurontin)Indicatio ns:Diabetic polyneuropathy associated with type 2 diabetes mellitus (HCC) TAKE 4 CAPSULES BY MOUTH ONCE DAILY 120 Capsule 10/06/2023 11/14/19 24 Discontinu ed(Refill) documented as of this encounter (statuses as of 11/17/2023) Active Problems Problem Noted Date Diagnosed Date [...] as of this encounter (statuses as of 11/17/2023) Resolved Problems Problem Noted Date Diagnosed Date [...] as of this encounter (statuses as of 11/17/2023) Immunizations Name Administration Dates Next Due COVID-19 mRNA, LNP-s, No Pre serve, 2-Dose Series (Innovacell) 03/06/2021,08/31/2020,08/10/2020 Pneumococcal Conjugate Vacc, 13 Valent (Prevnar) 04/07/2014 Pneumococcal Polysaccharide PPV23 (Pneumovax) 06/07/2020,11/28/2014 Seasonal Influenza, PF, 6 M & above, IM , (FluLaval or Fluzone) 02/21/2020,03/26/2019,02/02/2018,01/1803/26/2020 Seasonal Influenza, Quadriva lent Hd (Fluzone Hd) 08/07/2023,02/11/2022,02/13/2021 Seasonal Influenza, Quadriva lent, No Preserve, IM 02/07/2016,03/10/2015 Seasonal Influenza, Split, I IV3, With Preserve, Inj 02/04/2014,02/17/2012,01/25/2009,05/2002,03/26/2001 TD - Tetanus/Diptheria (ADULT) 03/03/2014 TDAP [...] encounter Miscellaneous Notes * Telephone Encounter - Dima Zelaya MD - 11/17/2023 5:47 PM EDTSigned Prescriptions: Disp Refills Gabapentin 300 MG Oral Capsule (Neurontin) 120 Ca*0 Sig: TAKE 4 CAPSULES BY MOUTH ONCE DAILYAuthorizing Provider: DIMA ZELAYA RRefused Prescriptions: Disp Refills Empagliflozin 25 MG Oral Tablet (Jardiance)90 Tab*1 Sig: Take 1 Tablet by mouth in the morning.Refused By: MALICK ARGUELLO for Refusal: Too soonReason for Refusal Comment: sent 08/06 Atorvastatin Calcium 40 MG Oral Tablet (Li*90 Tab*1 Sig: Take 1 Tablet by mouth daily. In the morning.Refused By: MALICK ARGUELLO for Refusal: Too soonReason for RefusalComment: sent 08/06 Naproxen Sodium 550 MG Oral Tablet 180 Ta*1 Sig: Take 1 Tablet by mouth inthe morning and 1 Tablet before bedtime.Refused By: MALICK ARGUELLO for Refusal: Too soonReason for Refusal Comment: sent 08/06 Dulera 200-5 MCG/ACT Inhalation Aerosol (M*36 g 1 Si puffs twice each day and rinse mouth after useRefused By: MALICK ARGUELLO for Refusal: Too soonReason forRefusal Comment: sent 08/06 * Telephone Encounter - Malick Arguello [facility] - 11/15/2023 5:42 PM EDTPending Prescriptions: Disp Refills Gabapentin 300 MG Oral Capsule (Neurontin) 120 Ca*0 Sig: TAKE 4 CAPSULES BY MOUTH ONCE DAILY Refused Prescriptions: Disp Refills Empagliflozin 25 MG Oral Tablet (Jardiance)90 Tab*1 Sig: Take 1 Tablet by mouth in the morning. Refused By: MALICK ARGUELLO Reason for Refusal: Too soon Reason for Refusal Comment: sent 08/06 Atorvastatin Calcium 40 MG Oral Tablet (Li*90 Tab*1 Sig: Take 1 Tablet by mouth daily. In the morning. Refused By: MALICK ARGUELLO Reason for Refusal: Too soon Reason for Refusal Comment: sent 08/06 Naproxen Sodium 550 MG Oral Tablet 180 Ta*1 Sig: Take 1 Tablet by mouth in the morning and 1 Tablet before bedtime. Refused By: MALICK ARGUELLO Reason for R efusal: Too soon Reason for Refusal Comment: sent 08/06 Dulera 200-5 MCG/ACT Inhalation Aerosol (M*36 g 1 Si puffs twice each day and rinse mouth after use Refused By: MALICK ARGUELLO Reason for Refusal: Too soon Reason for Refusal Comment: sent 08/06 * Telephone Encounter - Malick Arguello [facility] - 11/15/2023 5:37 PM EDT [facility] is currently not authorized to approve refills for the pended medication(s) per refill protocol. Please approve if appropriate. Pending Prescriptions: Disp Refills Gabapentin 300 MG Oral Capsule (Neurontin)120 Ca*0 Sig: TAKE 4 CAPSULES BY MOUTH ONCE DAILY Last Visit: 08/07/2023 (in office), Visit date not found (telemedicine) Next Visit: Visit date not found If no future appointments scheduled, and last appointment is greater than a year ago, please schedule patient for a follow-up appointment Last date the medication was ordered: 10/06/23 [facility]: [facility] [id number] Is this request for a controlled substance? No Urine Drug Screen:No results found for this or any previous visit. Patient Phone Numbers Labs: Lab Results Component Value Date/Time CREAT 1.0 05/07/2023 11:04 AM CREAT 1.3 (H) 05/23/2020 08:56 AM CREAT 0.8 05/31/1996 12:25 PM POTASSIUM 4.8 05/07/2023 11:04 AM POTASSIUM 4.9 05/23/2020 08:56 AM POTASSIUM 4.6 05/31/1996 12:25 PM TSH 3.96 01/28/2019 09:08 AM LDLCALC 75 08/09/2021 12:09 PM LDLCALC UNINTERPRETABLE RESULT 07/22/2018 10:43 AM LDLDIRECT 55 05/07/2023 11:04 AM LDLDIRECT 99 05/23/2020 08:56 AM ALT 27 05/07/2023 11:04 AM ALT 24 05/23/2020 08:56 AM ALT 37 05/31/1996 12:25 PM HGBA1C 7.7 (H) 09/04/2023 10:54 AM HGBA1C 7.9 (H) 05/23/2020 08:56 AM Thank you, Malick Arguello, PharmD Clinical Pharmacist [facility] 11/15/23 5:42 PM [phone] documented in this encounter Plan of Treatment Upcoming Encounters Date Type Department Care Team (Late st Contact Info) Description 09/03/2024 1:30 PM EDT Office Visit Dermatology [place] [address] [place] [address] Corey Delcid MD [address] [place] [address] Health Maintenance Due Date Last Done Comments Cologuard 1997 Fecal Occult Blood Test 1997 Sigmoidoscopy 1997 Zoster Vaccines (2 of 3) 04/13/2014 02/16/2014 Depression Monitoring 02/20/2021 02/21/2020 Colonoscopy 10/07/2021 10/08/2011 Colorectal Cancer Screening 10/07/2021 COVID-19 Vaccine (4 - 2022- season) 2023 03/06/2021, 08/31/2020, 08/10/2020 Influenza Vaccine [...] 04/04/2018, 03/03/2014, 03/02/2014 Lipid Panel 05/07/2028 05/07/2023, 2 08/2021, 05/23/2020, Additional history exists Pneumococcal Vaccine: 65+ Years Completed 06/07/2020, 11/28/2014, 04/07/2014 GARDASIL-HPV IMMUNIZATION SERIES Aged Out No longer eligible based on patient's age to complete this topic Hepatitis B Aged Out No longer eligi ble based on patient's age to complete this topic MENINGOCOCCAL (MENACTRA/MENVEO) Aged Out No longer eligible based on patient's age to complete this topic documented as of this encounter Medical Devices Implanted Type Area Internet Network Specialist Device Identifier Shelf Expiration Date Model / Serial / Lot Sut [place] Biocomp 4.75mm Min5 - [id number] Implanted:Qty: 2 on 06/03/2016 by Mario Dunlap DO at OR [facility] Right: Shoulder [employer] 12/16/2017 AR-2324BCC T / / [id number] 4.75x19.1mm Suture [place] Implanted:Qty: 1 on 06/03/2016 by Mario Dunlap DO at OR [facility] Right: Shoulder 12/16/2017 AR-2324BCC TT / / [id number] [place] Suture Biocomposite - [id number] Implanted:Qty: 3 on 06/03/2016 by Mario Dunlap DO at OR [facility] Right: Shoulder [employer] 12/16/2017 AR-2324BCC / / [id number] documented as of this encounter Visit Diagnoses Diagnosis Type 2 diabetes mellitus with hemoglobin A1c goal of less than 8.0% (HCC) Dyslipidemia, goal LDL below 70 Other and unspecified hyperlipidemia Chronic pain of both shoulders Pain in joint, shoulder region Respiratory abnormality Respiratory abnormality, unspecified Diabetic polyneuropathy associated with type 2 diabetes [...] Power of Attor gab? No Care Teams Dispatch Officer Relationship Specialty Start Date End Date Dima Zelaya MD [address] [facility] [place] [address] PCP - General Family Medicine 10/28/17 documented as of this encounter
--- OUTSIDE RECORDS SUMMARY | 2024-03-27 20:08 | External Medical Summary | Summary of Care ---
Author Name Unknown Organization [facility] Address [address] [facility] [place] [address] Phone [phone] Care Team Providers Care Personalized Living Manager Nurse Name Role Phone Rolando Schultz MD Primary Care Provider +1- [phone] Encounter Details Date Type Department Care Team (Late st Contact Info) Description 10/03/2023 Population Health External Data Unspecified Department Allergies No known active allergiesdocumented as of this encounter (statuses as of 10/08/2023) Medications Medication Sig Dispensed Refills Start Date End Date Status MULTIVITAMINS PO CAPS Take 1 Capsule by mouth in the morning. Active fluticasone (FLONASE) 50 MCG/ACT nasal sprayIndications:Press Hand jesse rhinitis Administer 2 Sprays into each nostril daily. 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 90 Capsule 1 08/07/2023 Active Ozempic (1 MG/DOSE) 4 MG/3ML Subcutaneous Solution Pen-injector (Semaglutide (1 MG/DOSE))Indications: Type 2 diabetes mellitus with hemoglobin A1c goal of less than 8.0% ([facility]) Inject 1 mg under the skin once a week. 9 mL 1 08/07/2023 Active Dulera 200-5 MCG/ACT Inhalation Aerosol (Mometasone-Formotero l)Indications:Respira tory abnormality 2 puffs twice each day and rinse mouth after use 36 g 1 08/07/2023 Active Aspirin 81 MG Oral Tablet Chewable Take 1 Tablet by mouth in the morning. with food.. 90 Tablet 1 08/07/2023 Active Famotidine 10 MG Oral Tablet (Acid Relay Repairer) Take 1 Tablet by mouth in the morning. 90 Tablet 1 08/07/2023 Active documented as of this encounter (statuses as of 10/08/2023) Active Problems Problem Noted Date Diagnosed Date Major depressive disorder with single episode Food insecurity 01/29/2021 Overview: Per [facility] Protocol Ulnar neuropathy at elbow, right [...] as of this encounter (statuses as of 10/08/2023) Resolved Problems Problem Noted Date Diagnosed Date [...] as of this encounter (statuses as of 10/08/2023) Immunizations Name Administration Dates Next Due COVID-19 mRNA, LNP-s, No Pre serve, 2-Dose Series ([employer]) 03/06/2021,08/31/2020,08/10/2020 Pneumococcal Conjugate Vacc, 13 Valent (Prevnar) 04/07/2014 Pneumococcal Polysaccharide PPV23 (Pneumovax) 06/07/2020,11/28/2014 Seasonal Influenza, PF, 6 M & above, IM , (FluLaval or Fluzone) 02/21/2020,03/26/2019,02/02/2018,01/1803/26/2020 Seasonal Influenza, Quadriva lent Hd (Fluzone Hd) 08/07/2023,02/11/2022,02/13/2021 Seasonal Influenza, Quadriva lent, No Preserve, IM 02/07/2016,03/10/2015 Seasonal Influenza, Split, I IV3, With Preserve, Inj 02/04/2014,02/17/2012,01/25/2009,06/0 05/2002,03/26/2001 TD - Tetanus/Diptheria (ADULT) 03/03/2014 TDAP (age [...] Care Team (Late st Contact Info) Description 10/14/2023 2:00 PM EDT Nurse Only MOHS Surgery [facility] [place] [address] [place] [address] Vita II, Nurse [address] [place] [address] 09/03/2024 1:30 PM EDT Office Visit Dermatology [facility] [place] [address] [facility] [place] [address] Corey Delcid MD [address] [facility] [place] [address] Health Maintenance Due Date Last Done Comments Cologuahair 1997 Fecal Occult Blood Test 1997 Sigmoidoscopy 1997 Zoster Vaccines (2 of 3) 04/13/2014 02/16/2014 Colonoscopy 10/07/2021 10/08/2011 Colorectal Cancer Screening 10/07/2021 COVID-19 Vaccine ( - 2022- season) 2023 03/06/2021, 08/31/2020, 08/10/2020 Diabetic Eye Exam 02/07/2024 02/06/2023, , 12/13/2021, [...] Vaccine: 65+ Years Completed 06/07/2020, 11/28/2014, 04/07/2014 Influenza Vaccine (FLU shot) Completed , 02/11/2022, 02/13/2021, Additional history exists GARDASIL-HPV IMMUNIZATION SERIES Aged Out No longer eligible based on patient's age to complete this topic Hepatitis B Aged Out No longer eligi ble based on patient's age to complete this topic MENINGOCOCCAL (MENACTRA/MENVEO) Aged Out No longer eligible based on patient's age to complete this topic documented as of this encounter Medical Devices Implanted Type Area Hospice Rn Device Identifier Shelf Expiration Date Model / Serial / Lot Sut [place] Biocomp 4.75mm Min5 - [id number] Implanted:Qty: 2 on 06/03/2016 by Mario Dunlap DO at OR [facility] Right: Shoulder [employer] 12/16/2017 AR-2324BCC T / / [id number] 4.75x19.1mm Suture [place] Implanted:Qty: 1 on 06/03/2016 by Mario Dunlap DO at OR [facility] Right: Shoulder 12/16/2017 AR-2324BCC TT / / [id number] [place] Suture Biocomposite - [id number] Implanted:Qty: 3 on 06/03/2016 by Mario Dunlap DO at OR [facility] Right: Shoulder [employer] 12/16/2017 AR-2324BCC / / [id number] documented as of this encounter Advance Directives [...] Power of Attor gab? No Care Teams Personalized Living Manager Nurse Relationship Specialty Start Date End Date Rolando Schultz MD [address] [place] [address] PCP - General Family Medicine 10/28/17 documented as of this encounter
--- OUTSIDE RECORDS SUMMARY | 2024-03-27 20:08 | External Medical Summary | Summary of Care ---
Author Name Unknown Organization [facility] Address [address] [facility] [place] [address] Phone [phone] Care Team Providers Care Meat Counter Worker Name Role Phone Rolando Schultz MD Primary Care Provider +1- [phone] Encounter Details Date Type Department Care Team (Late st Contact Info) Description 12/09/2023 Population Health External Data Unspecified Department Allergies No known active allergiesdocumented as of this encounter (statuses as of 12/12/2023) Medications Medication Sig Dispensed Refills Start Date End Date Status MULTIVITAMINS PO CAPS Take 1 Capsule by mouth in the morning. Active fluticasone (FLONASE) 50 MCG/ACT nasal sprayIndications:Fountain Worker jesse rhinitis Administer 2 Sprays into each nostril daily. 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 90 Tablet 1 08/07/2023 Active Gabapentin 300 MG Oral Capsule (Neurontin)Indication s:Diabetic polyneuropathy associated with type 2 diabetes mellitus (HCC) TAKE 4 CAPSULES BY MOUTH ONCE DAILY 120 Capsule 11/17/2023 Active documented as of this encounter (statuses as of 12/12/2023) Active Problems Problem Noted Date Diagnosed Date Major depressive disorder with single episode Food insecurity 01/29/2021 Overview: Per [facility] Protocol Ulnar neuropathy at elbow, right [...] as of this encounter (statuses as of 12/12/2023) Resolved Problems Problem Noted Date Diagnosed Date [...] as of this encounter (statuses as of 12/12/2023) Immunizations Name Administration Dates Next Due COVID-19 mRNA, LNP-s, No Pre serve, 2-Dose Series (Mobilitec) 03/06/2021,08/31/2020,08/10/2020 Pneumococcal Conjugate Vacc, 13 Valent (Prevnar) [...] Dermatology [facility] [address] [place] [address] Corey Delcid MD [address] [place], [place] [address] Health Maintenance Due Date Last Done Comments Cologuard 1997 Fecal Occult Blood Test 1997 Sigmoidoscopy 1997 Zoster Vaccines (2 of 3) 04/13/2014 02/16/2014 Depression Monitoring 02/20/2021 02/21/2020 Colonoscopy 10/07/2021 10/08/2011 Colorectal Cancer Screening 10/07/2021 COVID-19 Vaccine (2022- season) 2023 03/06/2021, 08/31/2020, 08/10/2020 Influenza Vaccine [...] 05/07/2028 05/07/2023, 07/18, 05/23/2020, Additional history exists *BASELINE EKG FOR HTN Completed 11/17/2018, 017 [...] this encounter Medical Devices Implanted Type Area Drafting Clerk Device Identifier Shelf Expiration Date Model / Serial / Lot Sut [place] Biocomp 4.75mm Min5 - [id number] Implanted:Qty: 2 on 06/03/2016 by Mario Dunlap DO at OR [facility] Right: Shoulder [employer] 12/16/2017 AR-2324BCC T / / [id number] 4.75x19.1mm Suture [place] Implanted:Qty: 1 on 06/03/2016 by Mario Dunlap DO at OR [facility] Right: Shoulder 12/16/2017 AR-2324BCC TT / / [id number] [place] Suture Biocomposite - [id number] Implanted:Qty: 3 on 06/03/2016 by Mario Dunlap DO at OR [facility] Right: Shoulder [employer] 12/16/2017 AR-2324BCC / / [id number] documented as of this encounter Advance Directives [...] Power of Attor gab? No Care Teams Meat Counter Worker Relationship Specialty Start Date End Date Rolando Schultz MD [address] [place] [address] PCP - General Family Medicine 10/28/17 documented as of this encounter
--- OUTSIDE RECORDS SUMMARY | 2024-03-27 20:08 | External Medical Summary | Summary of Care ---
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 Active fluticasone (FLONASE) 50 MCG/ACT nasal sprayIndications:Borematic Operator jesse rhinitis Administer 2 Sprays into each nostril daily. 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 90 Tablet 08/07/2023 Active Gabapentin 300 MG Oral Capsule (Neurontin)Indication s:Diabetic polyneuropathy associated with type 2 diabetes mellitus (HCC) TAKE 4 CAPSULES BY MOUTH ONCE DAILY 120 Capsule 10/06/2023 Active documented as of this encounter (statuses as of 10/06/2023) Active Problems Problem Noted Date Diagnosed Date [...] as of this encounter (statuses as of 10/06/2023) Resolved Problems Problem Noted Date Diagnosed Date [...] as of this encounter (statuses as of 10/06/2023) Immunizations Name Administration Dates Next Due COVID-19 mRNA, LNP-s, No Pre serve, 2-Dose Series (Waizy) 03/06/2021,08/31/2020,08/10/2020 Pneumococcal Conjugate Vacc, 13 Valent (Prevnar) [...] on file documented as of this encounter Last Filed Vital Signs Vital Sign Reading Time Taken Comments Blood Pressure - - Pulse - - Temperature 36.6 C (97.8 F) 10/06/2023 10:33 AM E DT Respiratory Rate - - Oxygen Saturation - - Inhaled Oxygen Concentration - - Weight 77.6 kg (171 lb) 10/06/2023 10:33 AM EDT Height - - Body Mass Index 23.85 08/07/2023 10:37 AM EDT documented in this encounter Progress Notes * Asmita Austin MD - 10/06/2023 12:48 PM EDT History: Tian Hudson is a 73 year old year old patient seen at the request for consultation by Dr. Delcid for evaluation and management of BCC, right postauricular. Current Outpatient Medications Medication Sig Dispense Refill Gabapentin 300 MG Oral Capsule (Neurontin) TAKE 4 CAPSULES BY MOUTH ONCE DAILY 120 Capsule 0 Aspirin 81 MG Oral Tablet Chewable Take 1 Tablet by mouth in the morning. with food.. 90 Tablet 1 Atorvastatin Calcium 40 MG Oral Tablet (Lipitor) Take 1 Tablet by mouth daily. In the morning. 90 Tablet 1 Citalopram Hydrobromide 20 MG Oral Tablet (CeleXA) Take 1 Tablet by mouth at bedtime. 90 Tablet 1 Cyclobenzaprine HCl 5 MG Oral Tablet (Flexeril) Take 1 Tablet by mouth at bedtime as needed for Muscle spasms (back pain). 30 Tablet 0 Diclofenac Sodium 1 % External Gel (Voltaren) Apply topically to affected area 4 times a day. Applyto thumbs when sore - rub in well 350 g 1 Dulera 200-5 MCG/ACT Inhalation Aerosol (Mometasone-Formoterol) 2 puffs twice each day and rinse mouth after use 36 g 1 Empagliflozin 25 MG Oral Tablet (Jardiance) Take 1 Tablet by mouth in the morning. 90 Tablet 1 Famotidine 10 MG Oral Tablet (Acid Electrical And Instrument Engineer) Take 1 Tablet by mouth in the morning. 90 Tablet 1 Fish Oil 1000 MG Oral Capsule Take 1 Capsule by mouth in the morning. 90 Capsule 1 Ketoconazole 2 % External Shampoo (Nizoral) Apply topically to affected area daily as needed for Itching. Wash scalp with lather for 2-3 minutes, then rinse.Apply topically to affected area daily as needed for Itching. Wash scalp with lather for 2-3 minutes, then rinse. 360 mL 1 Lisinopril 2.5 MG Oral Tablet (Prinivil) Take 1 Tablet by mouth in the morning. In the morning.. 90Tablet 1 metFORMIN HCl 1000 MG Oral Tablet (Glucophage) take 1 tablet by mouth twice a day (with morning andevening meal) 180 Tablet 3 Montelukast Sodium 10 MG Oral Tablet (Singulair) Take 1 Tablet by mouth in the morning. In the morning.. 90 Tablet 1 Naproxen Sodium 550 MG Oral Tablet Take 1 Tablet by mouth in the morning and 1 Tablet before bedtime. 180 Tablet 1 Ozempic (1 MG/DOSE) 4 MG/3ML Subcutaneous Solution Pen-injector (Semaglutide (1 MG/DOSE)) Inject 1 mg under the skin once a week. 9 mL 1 ONETOUCH ULTRA STRP USE TO TEST BLOOD GLUCOSE 4 TIMES DAILY NEEDED FOR HIGH OR LOW SUGAR 400 Strip 3 selenium sulfide 2.5 % lotion Apply topically to affected area daily as needed for Itching. Apply to chest and armpits daily 118 mL 5 Insulin Pen Needle (BD PEN NEEDLE SHORT U/F) 31G X 8 MM Use to inject insulin twice per day 100 Each 3 Insulin Pen Needle (PEN NEEDLES 5/16") 31G X 8 MM MISC Use to inject insulin 100 Each 5 nystatin 643981 UNIT/GM ointment Apply topically to affected area 2 times a day. To affacted area for two weeks. 15 g 2 ONETOUCH DELICA LANCETS FINE MISC Test bsg 2 - 3 times daily 90 Each 11 fluticasone (FLONASE) 50 MCG/ACT nasal spray Administer 2 Sprays into each nostril daily. 1 Inhaler5 MULTIVITAMINS PO CAPS Take 1 Capsule by mouth in the morning. No current facility-administered medications for this visit. Review of patient's allergies indicates: No Known Allergies ROS: The patient feels generally well and has no other skin complaints. Exam: Patient is alert, oriented and in no distress. Exam is of the skin and mucosa of skin. The patient is alert and oriented and appears generally well. The patient's skin is remarkable for a pink plaque measuring 3 x 1 cm. (site confirmed with phototaken at time of biopsy). Impression: 1. BCC, right postauricular Plan: 1. Plan for Mohs surgery today. Risks, benefits and alternatives discussed with patient. Risks suchas (but not limited to) scar, infection, bleeding, hematoma, and recurrence disussed. Questions answered. Informed consent form discussed and signed. Photograph obtained of lesion for medical record. Patient identified, procedure verified, site identified and verified. Time out completed. Surgical removal of the lesion discussed with the patient (risks and benefits, including possibility of scarring, infection, recurrence or potential for further treatment). I have specifically identified the site with the patient. I have discussed the fact that the patient will have a scar after the procedure regardless of granulation or repair with sutures. I have discussed that the repair options can range from granulation in some cases to linear or curvilinear closures to larger flaps or grafts. There are sometimes flaps or grafts used that require multiple stages of surgery and will not be completed today , rather be completed over a series of appointments. I have discussed that occasionally due to location , size or depth of the lesion I may recommend consultation with and transfer of care for further removal or the the reconstruction to another provider such as ophthalmology surgery , plastic surgery, ENT surgery or surgical oncology. There are cases in which other testing such as imaging with MRI or CT scan or testing of lymph nodes is recommended because of the nature/ depth/ location of tumor seen during the removal. There is a risk of injury tonerves causing temporary or permanent numbness or the inability to move muscles fully such as the inability to lift eyebrows. Questions answered and verbal and written consent was obtained. Mohs resection today. Tumor cleared in 2 stages . Repaired with an intermediate layered repair. Seeoperative report for complete details. Marylou Austin MD Associate, Department of Dermatology documented in this encounter Nursing Notes * Tori Madrigal LPN - 10/06/2023 10:34 AM EDT Chief Complaint Patient presents with Mohs Surgery Right postauricular scalp Referral Doctor: Bhavin Hypertension History: Yes, refer to medication information for treatment. Diabetes History: Yes, refer to medication information for treatment. Thyroid History: No Bleeding Tendency: Yes, refer to medication information for treatment. Artificial Valve or Joint: Yes, No SBE Prophylaxis Required Pacemaker: no Defibrillator: no Hepatitis/HIV Exposure: No Smoking: no Consent signed yes documented in this encounter Plan of Treatment Upcoming Encounters Date Type Department Care Team (Late st Contact Info) Description 10/14/2023 2:00 PM EDT Nurse Only MOHS Surgery [facility] [place] [address] [place] [address] Vita OROZCO, Nurse [facility] [address] [facility] [place] [address] 09/03/2024 1:30 PM EDT Office Visit Dermatology [facility] [place] [address] [place] [address] Corey Delcid MD [address] [place], [place] [address] Health Maintenance Due Date Last Done Comments Cologuard 1997 Fecal Occult Blood Test 1997 Sigmoidoscopy 1997 Zoster Vaccines (2 of 3) 04/13/2014 02/16/2014 Colonoscopy 10/07/2021 10/08/2011 Colorectal Cancer Screening 10/07/2021 COVID-19 Vaccine ( season) 2023 03/06/2021, 08/31/2020, 08/10/2020 Diabetic Eye [...] this encounter Medical Devices Implanted Type Area Local Flatbed Driver Device Identifier Shelf Expiration Date Model / Serial / Lot Sut Yarnell Biocomp 4.75mm Min5 - [id number] Implanted:Qty: 2 on 06/03/2016 by Mario Dunlap DO at OR [facility] Right: Shoulder [employer] 12/16/2017 AR-2324BCC T / / [id number] 4.75x19.1mm Suture Yarnell Implanted:Qty: 1 on 06/03/2016 by Mario Dunlap DO at OR [facility] Right: Shoulder 12/16/2017 AR-2324BCC TT / / [id number] Yarnell Suture Biocomposite - [id number] Implanted:Qty: 3 on 06/03/2016 by Mario Dunlap DO at OR [facility] Right: Shoulder [employer] 12/16/2017 AR-2324BCC / / [id number] documented as of this encounter Visit Diagnoses Diagnosis 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 No Care Teams Physical Sciences Professor Relationship Specialty Start Date End Date Rolando Schultz MD [address] [place] [id number] PCP - General Family Medicine 10/28/17 documented as of this encounter
--- OUTSIDE RECORDS SUMMARY | 2024-03-27 20:08 | External Medical Summary | Summary of Care ---
Author Name Unknown Organization [facility] Address [address] [facility] [place] [address] Phone [phone] Care Team Providers Care Section Supervisor Name Role Phone Rolando Schultz MD Primary Care Provider +1- [phone] Reason for Visit * Reason Comments Suture Removal Patient here for sut ure removal on right postauricular. Patient denies pain at present. Encounter Details Date Type Department Care Team (Late st Contact Info) Description 10/14/2023 2:00 PM EDT Nurse Only MOHS Surgery [facility] [address] [place] [address] Vita OROZCO, Nurse [place] [address] [place] [address] Suture Removal (Patient here for suture re... Allergies No known active allergiesdocumented as of this encounter (statuses as of 10/14/2023) Medications Medication Sig Dispensed Refills Start Date End Date Status MULTIVITAMINS PO CAPS Take 1 Capsule by mouth in the morning. Active fluticasone (FLONASE) 50 MCG/ACT nasal sprayIndications:Subcontracts Manager jesse rhinitis Administer 2 Sprays into each nostril daily. 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 90 Tablet 08/07/2023 Active Gabapentin 300 MG Oral Capsule (Neurontin)Indication s:Diabetic polyneuropathy associated with type 2 diabetes mellitus (HCC) TAKE 4 CAPSULES BY MOUTH ONCE DAILY 120 Capsule 10/06/2023 Active documented as of this encounter (statuses as of 10/14/2023) Active Problems Problem Noted Date Diagnosed Date [...] as of this encounter (statuses as of 10/14/2023) Resolved Problems Problem Noted Date Diagnosed Date [...] as of this encounter (statuses as of 10/14/2023) Immunizations Name Administration Dates Next Due COVID-19 mRNA, LNP-s, No Pre serve, 2-Dose Series (Savorfull) 03/06/2021,08/31/2020,08/10/2020 Pneumococcal Conjugate Vacc, 13 Valent (Prevnar) [...] on file documented as of this encounter Nursing Notes * Zahraa Alvarez LPN - 10/14/2023 1:59 PM EDT Chief Complaint Patient presents with Suture Removal Patient here for suture removal on right postauricular. Patient denies pain at present. Patient presents for suture removal in the area of right postauricular. Patient denies any problemsor concerns at current time. No signs or symptoms of infection noted at current time. Sutures removed without difficulty. This nurse instructed patient to continue to cleanse site daily with soap andwater, pat dry, and keep moist with Vaseline times 1 week. Pt verbalizes understanding. documented in this encounter Plan of Treatment Upcoming Encounters Date Type Department Care Team (Late st Contact Info) Description 09/03/2024 1:30 PM EDT Office Visit Dermatology [facility] [place] [address] [facility] [place] [address] Corey Delcid MD [address] [facility] [place] [address] Health Maintenance Due Date Last Done Comments [...] this encounter Medical Devices Implanted Type Area Distance Learning Administrator Device Identifier Shelf Expiration Date Model / Serial / Lot Sut [place] Biocomp 4.75mm Min5 - [id number] Implanted:Qty: 2 on 06/03/2016 by Mario Dunlap DO at OR [facility] Right: Shoulder [employer] 12/16/2017 AR-2324BCC T / / [id number] 4.75x19.1mm Suture [place] Implanted:Qty: 1 on 06/03/2016 by Mario Dunlap DO at OR [facility] Right: Shoulder 12/16/2017 AR-2324BCC TT / / [id number] [place] Suture Biocomposite - [id number] Implanted:Qty: 3 on 06/03/2016 by Mario Dunlap DO at OR [facility] Right: Shoulder [employer] 12/16/2017 AR-2324BCC / / [id number] documented as of this encounter Advance Directives [...] Power of Attor gab? No Care Teams Section Supervisor Relationship Specialty Start Date End Date Rolando Schultz MD [address] [place] [address] PCP - General Family Medicine 10/28/17 documented as of this encounter
--- OUTSIDE RECORDS SUMMARY | 2024-03-27 20:08 | External Medical Summary | Summary of Care ---
Author Name Unknown Organization [facility] Address [address] [facility] [place] [address] Phone [phone] Care Team Providers Care Satellite Tv Installer Name Role Phone Rolando Schultz MD Primary Care Provider +1- [phone] Encounter Details Date Type Department Care Team (Late st Contact Info) Description 11/10/2023 Population Health External Data Unspecified Department Allergies No known active allergiesdocumented as of this encounter (statuses as of 11/11/2023) Medications Medication Sig Dispensed Refills Start Date End Date Status MULTIVITAMINS PO CAPS Take 1 Capsule by mouth in the morning. Active fluticasone (FLONASE) 50 MCG/ACT nasal sprayIndications:Humanities Division Chair jesse rhinitis Administer 2 Sprays into each nostril daily. 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 90 Tablet 1 08/07/2023 Active Gabapentin 300 MG Oral Capsule (Neurontin)Indication s:Diabetic polyneuropathy associated with type 2 diabetes mellitus (HCC) TAKE 4 CAPSULES BY MOUTH ONCE DAILY 120 Capsule 10/06/2023 Active documented as of this encounter (statuses as of 11/11/2023) Active Problems Problem Noted Date Diagnosed Date Major depressive disorder with single episode Food insecurity 01/29/2021 Overview: Per [facility] Protocol Ulnar neuropathy at elbow, right [...] as of this encounter (statuses as of 11/11/2023) Resolved Problems Problem Noted Date Diagnosed Date [...] as of this encounter (statuses as of 11/11/2023) Immunizations Name Administration Dates Next Due COVID-19 mRNA, LNP-s, No Pre serve, 2-Dose Series (Shoptagr) 03/06/2021,08/31/2020,08/10/2020 Pneumococcal Conjugate Vacc, 13 Valent (Prevnar) [...] Dermatology [facility] [address] [place] [address] Corey Delcid MD [address] [place], [place] [address] Health Maintenance Due Date Last Done Comments [...] this encounter Medical Devices Implanted Type Area Lpn Home Health Device Identifier Shelf Expiration Date Model / Serial / Lot Sut Sikes Biocomp 4.75mm Min5 - [id number] Implanted:Qty: 2 on 06/03/2016 by Mario Dunlap DO at OR [facility] Right: Shoulder [employer] 12/16/2017 AR-2324BCC T / / [id number] 4.75x19.1mm Suture Sikes Implanted:Qty: 1 on 06/03/2016 by Mario Dunlap DO at OR [facility] Right: Shoulder 12/16/2017 AR-2324BCC TT / / [id number] Sikes Suture Biocomposite - [id number] Implanted:Qty: 3 on 06/03/2016 by Mario Dunlap DO at OR [facility] Right: Shoulder [employer] 12/16/2017 AR-2324BCC / / [id number] documented as of this encounter Advance Directives [...] Power of Attor gab? No Care Teams Satellite Tv Installer Relationship Specialty Start Date End Date Rolando Schultz MD [address] [place] [address] PCP - General Family Medicine 10/28/17 documented as of this encounter
--- OUTSIDE RECORDS SUMMARY | 2024-03-27 20:08 | External Medical Summary | Summary of Care ---
Author Name Unknown Organization [facility] Address [address] [facility] [place] [address] Phone [phone] Care Team Providers Care Heel Buffer Name Role Phone Rolando Schultz MD Primary Care Provider +1- [phone] Reason for Visit * Reason Comments eRx-Medication Refill Encounter Details Date Type Department Care Team (Late st Contact Info) Description 10/04/2023 Refill [facility] [address] [place] [id number] Kayla Reich PA-C [address], [place] [id number] Diabetic polyneuropathy associated with type 2 diabetes [...] daily 90 Each 11 8 Active nystatin 264882 UNIT/GM ointmentIndications: Cutaneous candidiasis Apply topically to [...] for 2-3 minutes, then rinse. 360 mL 4 Active Fish Oil 1000 MG Oral CapsuleIndications:A rthritis of carpometacarpal (CMC) joint of right thumb Take 1 Capsule by mouth in the morning. 90 Capsule 1 4 Active Ozempic (1 MG/DOSE) 4 MG/3ML Subcutaneous Solution Pen-injector (Semaglutide (1 MG/DOSE))Indications :Type 2 diabetes mellitus with hemoglobin A1c goal of less than 8.0% ([facility]) Inject 1 mg under the skin once a week. 9 mL 1 4 Active Dulera 200-5 MCG/ACT Inhalation Aerosol (Mometasone-Formoter ol)Indications:Respi ratory abnormality 2 puffs twice each day and rinse mouth after use 36 g 1 4 Active Aspirin 81 MG Oral Tablet Chewable Take 1 Tablet by mouth in the morning. with food.. 90 Tablet 1 4 Active Famotidine 10 MG Oral Tablet (Acid Warehouse Material Handler) Take 1 Tablet by mouth in the morning. 90 Tablet 1 4 Active Gabapentin 300 MG Oral Capsule (Neurontin)Indicatio ns:Diabetic polyneuropathy associated with type 2 diabetes mellitus (HCC) TAKE 4 CAPSULES BY MOUTH ONCE DAILY 120 Capsule 4 Active Gabapentin 300 MG Oral Capsule (Neurontin)Indicatio ns:Diabetic polyneuropathy associated with type 2 diabetes mellitus (HCC) take 4 capsules by mouth daily 120 Capsule 1 4 10/06/19 24 Discontinued documented as of this encounter [...] mRNA, LNP-s, No Pre serve, 2-Dose Series (Jump On It) 03/06/2021,08/31/2020,08/10/2020 Pneumococcal Conjugate Vacc, 13 Valent (Prevnar) [...] encounter Miscellaneous Notes * Telephone Encounter - Shannon Chang LPN - 10/06/2023 8:53 AM EDTPending Prescriptions: Disp Refills Gabapentin 300 MG Oral Capsule 120 Ca*0 Sig: TAKE 4 CAPSULES BY MOUTH ONCE DAILY * Telephone Encounter - Susana Harvey - 10/04/2023 1:08 PM EDTPending Prescriptions: Disp Refills Gabapentin 300 MG Oral Capsule 120 Ca*0 Sig: TAKE 4 CAPSULES BYMOUTH ONCE DAILY documented in this encounter Plan of Treatment Upcoming Encounters Date Type Department Care Team (Late st Contact Info) Description 10/06/2023 10:30 AM EDT Office Visit MO[facility] Surgery [facility] [address] [place] [address] Asmita Austin MD [address] [place] [address] 09/03/2024 1:30 PM EDT Office Visit Dermatology [address] [address] Corey Delcid MD [address] [place] [address] Health Maintenance Due Date Last Done Comments [...] this encounter Medical Devices Implanted Type Area Belt Machine Operator Device Identifier Shelf Expiration Date Model / Serial / Lot Sut [place] Biocomp 4.75mm Min5 - [id number] Implanted:Qty: 2 on 06/03/2016 by Mario Dunlap DO at OR [facility] Right: Shoulder [employer] 12/16/2017 AR-2324BCC T / / [id number] 4.75x19.1mm Suture [place] Implanted:Qty: 1 on 06/03/2016 by Mario Dunlap DO at OR [facility] Right: Shoulder 12/16/2017 AR-2324BCC TT / / [id number] Hewett Suture Biocomposite - [id number] Implanted:Qty: 3 on 06/03/2016 by Mario Dunlap DO at OR [facility] Right: Shoulder [employer] 12/16/2017 AR-2324BCC / / [id number] documented as of this encounter Visit Diagnoses [...] Power of Attor gab? No Care Teams Heel Buffer Relationship Specialty Start Date End Date Rolando Schultz MD [address] [facility] [address] PCP - General Family Medicine 10/28/17 documented as of this encounter
--- OUTSIDE RECORDS SUMMARY | 2024-03-27 20:08 | External Medical Summary | Summary of Care ---
Author Name Unknown Organization [facility] Address [address] [facility] [place] [address] Phone [phone] Care Team Providers Care Blanking Machine Operator Name Role Phone Rolando Schultz MD Primary Care Provider [phone]- [phone] Encounter Details Date Type Department Care Team (Late st Contact Info) Description 10/07/2023 Population Health External Data Unspecified Department Allergies No known active allergiesdocumented as of this encounter (statuses as of 10/08/2023) Medications Medication Sig Dispensed Refills Start Date End Date Status MULTIVITAMINS PO CAPS Take 1 Capsule by mouth in the morning. Active fluticasone (FLONASE) 50 MCG/ACT nasal sprayIndications:Save All Operator jesse rhinitis Administer 2 Sprays into each nostril daily. 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) Test bsg 2 - 3 times daily 90 Each 11 10/08/2017 Active nystatin 467035 UNIT/GM ointmentIndications:C utaneous candidiasis Apply topically to [...] Active Famotidine 10 MG Oral Tablet (Acid Life Assurance Representative) Take 1 Tablet by mouth in the [...] single episode Food insecurity 01/29/2021 Overview: Per [facility] Protocol Ulnar neuropathy at elbow, right [...] mRNA, LNP-s, No Pre serve, 2-Dose Series ([email or web address]) 03/06/2021,08/31/2020,08/10/2020 Pneumococcal Conjugate Vacc, 13 Valent (Prevnar) [...] 2:00 PM EDT Nurse Only MO[facility] Cheryl Vasquez [address] [place] [address] [facility] Nurse [place] [address] [place] [address] 09/03/2024 1:30 PM EDT Office Visit Dermatology [facility] Cheryl Vasquez [address] [place] [id number] Corey Delcid MD [address] [place] [address] Health Maintenance Due Date Last Done Comments [...] this encounter Medical Devices Implanted Type Area Kiln Tender Device Identifier Shelf Expiration Date Model / Serial / Lot Sut [place] Bi[employer]p 4.75mm Min5 - [id number] Implanted:Qty: 2 on 06/03/2016 by Mario Dunlap, DO at OR [facility] Right: Shoulder [employer] 12/16/2017 AR-2324BCC T / / [id number] 4.75x19.1mm Suture [place] Implanted:Qty: 1 on 06/03/2016 by Mario Dunlap DO at OR [facility] Right: Shoulder 12/16/2017 AR-2324BCC TT / / [id number] [place] Suture Biocomposite - [id number] Implanted:Qty: 3 on 06/03/2016 by Mario Dunlap, at OR [facility] Right: Shoulder [employer] 12/16/2017 AR-2324BCC / / [id number] documented as of this encounter Advance Directives [...] Power of Attor gab? No Care Teams Blanking Machine Operator Relationship Specialty Start Date End Date Rolando Schultz MD [address] [place] [address] PCP - General Family Medicine 10/28/17 documented as of this encounter
[2024-03-27] MEDS: ASPIRIN CHEW 324 MG PO STA (20:33)
--- NOTE | 2024-03-27 20:42 | Emergency Department Note ---
Impression & Plan Chest pain, exertional, Elevated troponin I level, Abnormal EKG ED Provider Note NAME: CONSTANCE NERI AGE: 73 SEX: M : 1950 ARRIVES VIA: Walk-In INFORMANT: Patient, ED PROVIDER(S): Surya Lopez DO CHIEF COMPLAINT: Chest pain HPI: The patient is a 73-year-old male who presented to the emergency department for an evaluation of chest pain. The patient's had chest pain intermittently over the course of the last week or so. The patient's noticed chest pain with exertion. He also notices shortness of breath. Pain is relieved with rest. He denies having any leg swelling or leg pain. He does use tobacco products. He has a history of diabetes. He does not have a history of coronary artery disease as far as he knows. ROS: See above HPI for pertinent positives & negatives. A total of 10 systems reviewed and were otherwise negative. PAST MEDICAL HISTORY: See Below PAST SURGICAL HISTORY: See Below FAMILY HISTORY: See Below SOCIAL HISTORY: See Below HOME MEDICATIONS: See Below ALLERGIES: See Below VITALS: See Below PHYSICAL EXAMINATION: GENERAL: Patient is awake alert in no acute distress patient is resting comfortably and showing no signs of anxiety EYES: The conjunctivae are clear. The pupils are round and reactive. EARS, NOSE, MOUTH AND THROAT: The nose is without any evidence of any deformity. NECK: The neck is nontender and supple. RESPIRATORY: Normal respiratory effort is noted there is no evidence of wheezing rhonchi or rales CARDIOVASCULAR: Regular rate and rhythm noted there no murmurs rubs or gallops normal S1 normal S2. GASTROINTESTINAL: The abdomen is soft. Abdomen is nontender. MUSCULOSKELETAL/EXTREMITIES: There is no evidence of gross deformity full range of motion is noted in the hips and shoulders. SKIN: There is no obvious evidence of any rash. There are no petechiae, pallor or cyanosis noted. NEUROLOGIC: Patient is awake alert and oriented x3 MEDICAL DECISION MAKING: The patient is a 73-year-old male who presented to the emergency department for an evaluation of chest pain. The patient has risk factors of hypertension as well as high cholesterol. He also has type 2 diabetes. He started having chest pain over the last several days. Chest pain was exertional in nature and relieved with rest. I discussed the patient's laboratory and radiographic studies with him. I discussed the limitations of the emergency department workup for chest pain with him. Ultimately the patient was found to have an abnormal EKG. His initial cardiac biomarker was elevated. He was treated with aspirin in the emergency department. The patient was pain-free in the emergency department as well. I discussed his case with the on-call [facility] hospitalist. They have agreed to evaluate the patient in the emergency department for further management and disposition. Triage Nursing notes reviewed. Prior medical records reviewed Vital Signs: reviewed and remarkable for no significant abnormalities Differential diagnosis: Cardiac ischemia, aortic dissection, pulmonary embolism, pneumothorax, pneumonia, pericarditis, myocarditis, esophageal rupture, GERD, cholecystitis, pancreatitis, musculoskeletal, as well as other pathologies. ER treatment provided: See below Diagnostics interpreted by me: ECG: EKG was obtained in the emergency department. My interpretation is normal sinus rhythm at 84 bpm. There is no ectopy. Nonspecific ST depressions were noted in the apical and lateral leads. This was compared to a tracing from May 20, 2016. The ST segment abnormalities are new compared to the previous tracing. Cardiac Monitoring: An order was placed for continuous cardiac monitoring. The monitor shows a rate of 74 bpm with sinus rhythm. Laboratory studies: As stated above and show below. Imaging studies: See below. Radiographic imaging was reviewed by myself Consultation(s): I discussed this case with Dr. Alonzo who is on-call for the [facility] group. Past Med/Surg History Problem List (Updated 03/28/24 @ 01:38 by Surya Lopez DO) Abnormal EKG (Acute) Elevated troponin I level (Acute) Chest pain, exertional (Acute) AC joint arthropathy Hypertension (Chronic) Hypercholesteremia (Chronic) Rotator cuff arthropathy (Acute 04/22/14) Cellulitis of right lower extremity DM type 2 (diabetes mellitus, type 2) (Chronic) Dyslipidemia (Chronic) H/O colonoscopy (Chronic) History of dental surgery (Chronic) S/P shoulder replacement (Chronic) Severe sepsis Family History Other Cancer Diabetes Heart disease Hypertension Social History Smoking Status: Never smoker Tobacco Type: Smokeless Tobacco (Dip or Chew) Preferred Language: Yi marital status: Current Living Situation: Alone current occupational status: unemployed Feels Safe at Home: Yes Allergies Allergies Allergy/AdvReac Type Severity Reaction Status Date / Time No Known Allergies Allergy Unverified 03/27/24 21:17 Home Meds Home Medications Medication Instructions Recorded Confirmed aspirin 81 mg tablet,delayed 81 mg PO QAM 03/27/24 03/27/24 release atorvastatin 40 mg tablet 40 mg PO QAM 03/27/24 03/27/24 citalopram 20 mg tablet 20 mg PO HS 03/27/24 03/27/24 cyclobenzaprine 5 mg tablet 5 mg PO HS PRN Muscle Spasm 03/27/24 03/27/24 empagliflozin 25 mg tablet 10 mg PO QAM 03/27/24 03/27/24 (Jardiance) famotidine 10 mg tablet 10 mg PO QAM 03/27/24 03/27/24 gabapentin 300 mg capsule 600 mg PO AMHS 03/27/24 03/27/24 lisinopril 2.5 mg tablet 2.5 mg PO QAM 03/27/24 03/27/24 metformin 1,000 mg tablet 1,000 mg PO BIDM 03/27/24 03/27/24 montelukast 10 mg tablet 10 mg PO QAM 03/27/24 03/27/24 multivit,calcium,min-folic acid 1 tab PO HS 03/27/24 03/27/24 240 mcg-D3 25 mcg-lycop 300 mcg tablet (One A Day Men Complete) naproxen sodium 550 mg tablet 550 mg PO AMHS 03/27/24 03/27/24 semaglutide 1 mg/dose (4 mg/3 mL) 1 mg subcut WK 03/27/24 03/27/24 subcutaneous pen injector (Ozempic) Results & Data (ED) Vital Signs Vital Signs - 24 hr 03/27/24 20:03 03/27/24 20:33 03/27/24 21:00 Temperature 37 C 36.5 C Temperature Source Temporal Artery Scan Oral Pulse Rate 97 H 85 Pulse Rate [Apical] 86 Respiratory Rate 15 19 Respiratory Effort / Characteristics Non-Labored Respiratory Depth Normal Respiratory Pattern Regular Blood Pressure 122/70 Blood Pressure [Left Arm] 136/69 Blood Pressure Mean 87 Blood Pressure Mean [Left Arm] 91 Pulse Oximetry 95 95 Oxygen Delivery Method Room Air Room Air Oxygen Flow Rate Sepsis Recent Fever Within 48 Hours No Sepsis New/Unexplained Change in Mental Status No Sepsis Action Taken by Nursing No Action Required Oxygen Flow Rate - Titration Pulse Oximetry Post Tiitration 03/27/24 21:09 03/27/24 21:12 03/27/24 21:57 Temperature Temperature Source Pulse Rate 80 Pulse Rate [Apical] 79 Respiratory Rate 19 23 Respiratory Effort / Characteristics Non-Labored Respiratory Depth Normal Respiratory Pattern Regular Blood Pressure Blood Pressure [Left Arm] 121/75 Blood Pressure Mean Blood Pressure Mean [Left Arm] 90 Pulse Oximetry 94 100 92 Oxygen Delivery Method Room Air Room Air Room Air Oxygen Flow Rate Sepsis Recent Fever Within 48 Hours Sepsis New/Unexplained Change in Mental Status Sepsis Action Taken by Nursing Oxygen Flow Rate - Titration Pulse Oximetry Post Tiitration 03/27/24 22:30 Temperature Temperature Source Pulse Rate Pulse Rate [Apical] Respiratory Rate Respiratory Effort / Characteristics Respiratory Depth Respiratory Pattern Blood Pressure Blood Pressure [Left Arm] Blood Pressure Mean Blood Pressure Mean [Left Arm] Pulse Oximetry 86 L Oxygen Delivery Method Nasal Cannula Oxygen Flow Rate 0 Sepsis Recent Fever Within 48 Hours Sepsis New/Unexplained Change in Mental Status Sepsis Action Taken by Nursing Oxygen Flow Rate - Titration 2 Pulse Oximetry Post Tiitration 96 Home Medications Current Medication List: was personally reviewed by me Laboratory Data Attestation: I reviewed the patient's lab results. 03/27/24 20:24 03/27/24 21:25 Lab Results 03/27/24 03/27/24 03/27/24 Range/Units 20:24 20:26 21:25 WBC 5.94 (4.8-10.8) K/ul RBC 4.75 (4.70-6.10) M/uL Hgb 14.3 (14.0-18.0) g/dl Hct 43.1 (42.0-52.0) % MCV 90.7 (80.0-100.0) fL MCH 30.1 (25.0-34.0) pg MCHC 33.2 (32.0-36.0) g/dL RDW Std Deviation 43.4 (36.4-46.3) fL RDW Coeff of Elaine 13.1 (11.5-14.5) % Plt Count 266 (130-400) K/uL MPV 10.3 (9.4-12.4) fL Immature Gran % (Auto) 0.3 % Neut % (Auto) 74.7 % Lymph % (Auto) 16.8 % [place] % (Auto) 6.7 % Eos % (Auto) 0.8 % Baso % (Auto) 0.7 % Neut # (Auto) 4.43 (1.40-6.50) K/uL Lymph # (Auto) 1.00 L (1.20-3.40) K/uL [place] # (Auto) 0.40 (0.11-0.59) K/uL Eos # (Auto) 0.05 (0.00-0.50) K/uL Baso # (Auto) 0.04 (0.00-0.20) K/uL Immature Gran # (Auto) 0.02 (0.01-0.20) K/uL APTT Cancelled PTT Ratio Cancelled D-Dimer Cancelled Sodium 134 L (136-145) mmol/L Potassium TNP 4.3 Chloride 97 L (98-107) mmol/L Carbon Dioxide 26 (21-32) mmol/L Anion Gap 11 (3-11) BUN 14 (6-23) mg/dl Creatinine 0.93 (0.6-1.4) mg/dl Est Cr Clr Drug Dosing 77.6 ml/min eGFR 87.79 BUN/Creatinine Ratio 15.1 (10-20) Glucose 205 H (70-99(Fasting)) mg/dl Calcium 9.1 (8.6-10.3) mg/dl Magnesium 1.7 (1.7-2.4) mg/dl Total Bilirubin 0.3 (0.2-1.0) mg/dl AST TNP 18 ALT 20 (7-52) U/L Alkaline Phosphatase 67 (34-104) U/L Troponin I High Sens 36.9 H 43.2 H (0-20) pg/ml Total Protein 6.6 (6.0-8.3) gm/dl Albumin 4.4 (3.4-5.0) gm/dl Globulin 2.2 L (2.5-4.0) gm/dl Albumin/Globulin Ratio 2.0 (0.9-2) Lipase 46 (11-82) U/L Administered Medications Citalopram Hydrobromide (Citalopram 20 Mg Tab) 20 mg PO HS MAURI Stop: 04/26/24 22:59 Last Admin: 03/28/24 01:04 Dose: 20 mg Documented By: BETHANY Gabapentin (Gabapentin 600 Mg Tab) 600 mg PO AMHS [facility] Stop: 04/26/24 22:59 Last Admin: 03/28/24 01:04 Dose: 600 mg Documented By: BETHANY Sodium Chloride (Nss) 1,000 mls @ 75 mls/hr IV .[id number] ONE Stop: 03/28/24 11:05 Last Admin: 03/27/24 21:57 Dose: 75 mls/hr Documented By: BETHANY Heparin Sodium/Dextrose (Heparin Sodium/Dextrose) 25,000 units in 500 mls @ 28 mls/hr IV .[id number] [facility]; Protocol Stop: 04/26/24 23:44 Last Admin: 03/28/24 01:32 Dose: 1,400 units/hr, 28 mls/hr Documented By: BETHANY Co-signed By: SEAN Discontinued Medications Aspirin (Aspirin Chew 324 Mg) 324 mg PO NOW STA Stop: 03/27/24 20:27 Last Admin: 03/27/24 20:33 Dose: 324 mg Documented By: ROBIN Heparin Sodium/Dextrose (Heparin Iv Adult Wt-Based Standard *No* Initial Bolus Protocol) 1 each IV ONE STA; Protocol Stop: 03/27/24 23:20 Last Admin: 03/28/24 01:34 Dose: 1 each Documented By: BETHANY Metoprolol Tartrate (Metoprolol Tartrate 25 Mg Tab) 12.5 mg PO NOW STA Stop: 03/27/24 23:21 Last Admin: 03/28/24 01:06 Dose: 12.5 mg Documented By: BETHANY Nitroglycerin (Nitroglycerin Sl 0.4 Mg/Tab Tab) 0.4 mg SL NOW STA Stop: 03/27/24 22:51 Last Admin: 03/27/24 23:01 Dose: 0.4 mg Documented By: BETHANY Imaging Data Attestation: I personally reviewed and interpreted this imaging study as follows: My Impression: 1 view chest x-ray was obtained in the emergency department. My interpretation is no free air or definite infiltrate, final report below. Radiologist's Impression: Chest X-Ray 03/27/24 20:08 Exam(s): XR CXR 1 VIEW EXAM: XR Chest, 1 View CLINICAL HISTORY: Reason for exam: Chest pain, nonspecific. TECHNIQUE: Frontal view of the chest. COMPARISON: May 20, 2016 FINDINGS: Lungs: Unremarkable. No consolidation. Pleural space: Unremarkable. No pneumothorax. Heart: Unremarkable. No cardiomegaly. Mediastinum: Unremarkable. Normal mediastinal contour. Bones/joints: There is a left total shoulder arthroplasty, unchanged. No acute fracture. Vasculature: The aortic arch is mildly calcified but appears nondilated. Upper abdomen: Unremarkable as visualized. No pneumoperitoneum under the diaphragm. IMPRESSION: No acute findings in the chest. Electronically signed by: Thomas Acevedo MD 03/27/24 23:40 PM Discharge Plan Visit Data Chief Complaint: Chest Pain Stated Complaint: CHEST PAIN, SOB ED Provider: Surya Lopez Discharge Problem: Chest pain, exertional, Elevated troponin I level, Abnormal EKG Patient Disposition: Being Evaluated by Hospitalist Discharge Instructions Interventions: ED Discharge Assessment Last Done: 03/28/24 00:30
[2024-03-27 21:18] LABS: Basophils # (auto) 0.04 K/uL (0.00-0.20); Basophils % (auto) 0.7 %; Eosinophils # (auto) 0.05 K/uL (0.00-0.50); Eosinophils % (auto) 0.8 %; Hematocrit (blood only) 43.1 % (42.0-52.0); Hemoglobin 14.3 g/dl (14.0-18.0); Immature Granulocytes # (auto) 0.02 K/uL (0.01-0.20); Immature Granulocytes % (auto) 0.3 %; Lymphocytes % (auto) 16.8 %; Mean Corpuscular Hemoglobin 30.1 pg (25.0-34.0); Mean Corpuscular Hgb Conc 33.2 g/dL (32.0-36.0); Mean Corpuscular Volume 90.7 fL (80.0-100.0); Mean Platelet Volume 10.3 fL (9.4-12.4); Monocytes % (auto) 6.7 %; Neutrophils # (auto) 4.43 K/uL (1.40-6.50); Neutrophils % (auto) 74.7 %; Platelet Count 266 K/uL (130-400); RDW Coefficient of Variation 13.1 % (11.5-14.5); RDW Standard Deviation 43.4 fL (36.4-46.3); Red Blood Count 4.75 M/uL (4.70-6.10); White Blood Count 5.94 K/ul (4.8-10.8)
[2024-03-27 21:25] LABS: Alanine Aminotransferase 20 U/L (7-52); Albumin Level 4.4 gm/dl (3.4-5.0); Alkaline Phosphatase 67 U/L (34-104); Anion Gap 11 (3-11); BUN Creatinine Ratio 15.1 (10-20); Bilirubin,Total 0.3 mg/dl (0.2-1.0); Blood Urea Nitrogen 14 mg/dl (6-23); Calcium 9.1 mg/dl (8.6-10.3); Carbon Dioxide 26 mmol/L (21-32); Chloride 97 mmol/L (98-107); Creatinine Clr Calc Pharmacy 77.6 ml/min; Globulin 2.2 gm/dl (2.5-4.0); Glucose 205 mg/dl (70-99(Fasting)); Lipase 46 U/L (11-82); Sodium 134 mmol/L (136-145); Total Protein 6.6 gm/dl (6.0-8.3); Troponin I High Sensitivity 36.9 pg/ml (0-20)
[2024-03-27] MEDS: SODIUM CHLORIDE 0.9% 1,000 ML IV ONE (21:57)
[2024-03-27 22:15] LABS: Magnesium 1.7 mg/dl (1.7-2.4); Potassium 4.3 mmol/L (3.5-5.1)
[2024-03-27 22:23] LABS: Troponin I High Sensitivity 43.2 pg/ml (0-20)
[2024-03-27] MEDS ORDERED: MoRPHine SULFATE 2 MG/ML CARP IV PRN (22:58)
[2024-03-27] MEDS ORDERED: traMADol HCL 50 MG TABLET PO PRN (22:58)
[2024-03-27] MEDS ORDERED: PROMETHAZINE 6.25 MG/50.25 ML BAG IV PRN (22:58)
[2024-03-27] MEDS: NITROGLYCERIN SL 0.4 MG/TAB TAB SL STA (23:01)
--- NOTE | 2024-03-27 23:41 | XRay Report ---
Exam(s): XR CXR 1 VIEW EXAM: XR Chest, 1 View CLINICAL HISTORY: Reason for exam: Chest pain, nonspecific. TECHNIQUE: Frontal view of the chest. COMPARISON: May 20, 2016 FINDINGS: Lungs: Unremarkable. No consolidation. Pleural space: Unremarkable. No pneumothorax. Heart: Unremarkable. No cardiomegaly. Mediastinum: Unremarkable. Normal mediastinal contour. Bones/joints: There is a left total shoulder arthroplasty, unchanged. No acute fracture. Vasculature: The aortic arch is mildly calcified but appears nondilated. Upper abdomen: Unremarkable as visualized. No pneumoperitoneum under the diaphragm. IMPRESSION: No acute findings in the chest. Electronically signed by: Thomas Acevedo MD 03/27/24 23:40 PM
[2024-03-28] MEDS ORDERED: GLUCOSE 40% GEL 15 GM TUBE PO PRN (00:30)
[2024-03-28] MEDS ORDERED: GLUCOSE 10 TAB/TUBE PO PRN (00:30)
[2024-03-28] MEDS ORDERED: CARBOHYDRATES FOR HYPOGLYCEMIA PO PRN (00:30)
[2024-03-28] MEDS ORDERED: DEXTROSE 50% 50 ML SYRINGE IV PRN (00:30)
[2024-03-28] MEDS ORDERED: GLUCAGON FOR INJ 1 MG VIAL SQ PRN (00:30)
--- NOTE | 2024-03-28 00:51 | History & Physical Report ---
Date of Service March 27, 2024 (late entry, patient seen 03/27/24) Assessment & Plan (1) NSTEMI (non-ST elevated myocardial infarction): Plan: NSTEMI hypertension, stable hyperlipidemia, on statin Rx DM2 on oral medications, suboptimal control as of recent hemoglobin A1c of 7.24 August 2023 benign familial tremor anxiety/mood disorder, stable past tobacco abuse PCU Aspirin, and statin Rx for CAD prevention Initiate beta-binu IV heparin TTE, Cardiology consult Re: ACS N.p.o. in anticipation of ischemic workup Update lipid and hemoglobin A1c Basal bolus insulin adjusted for n.p.o. status, ISS BG goal 1 10-1 40 DVT prophylaxis. IV heparin Full code Total critical care time was 45 minutes. Text document was generated using [employer] voice recognition software. It may contain grammatical or spelling errors. Kindly contact undersigned for clarification of any documentation item in question. Admission and Anticipated Discharge Date Admission Date: March 27, 2024 History of Present Illness Chief Complaint: Chest pain Primary Care Provider: Rolando Schultz MD History obtained from patient and records. Medical history significant for hypertension, hyperlipidemia, DM2 on oral medications, GERD, benign familial tremor, anxiety/mood disorder, past tobacco abuse, history of MRSA. Last confinement 2015 for prepatellar bursitis status post aspiration. Patient with intermittent substernal chest pain at home since last week. Chest pain described as tightness without radiation. Nonpleuritic. Some SOB without cough symptoms. Different from reflux. Compliant with home medications. Chest pain improved with nitroglycerin administration at the ER. Medical History as above Surgical History : Multiple shoulder surgeries, dental surgery, ulnar nerve revision Family History : Heart disease, DM, COPD Personal/Social history : Past tobacco abuse, no EtOH intake, retired from construction work Allergies Allergy/AdvReac Type Severity Reaction Status Date / Time No Known Allergies Allergy Unverified 03/27/24 21:17 Home Medications Medication Instructions Recorded Confirmed Type aspirin 81 mg tablet,delayed 81 mg PO QAM 03/27/24 03/27/24 History release atorvastatin 40 mg tablet 40 mg PO QAM 03/27/24 03/27/24 History citalopram 20 mg tablet 20 mg PO HS 03/27/24 03/27/24 History cyclobenzaprine 5 mg tablet 5 mg PO HS PRN Muscle Spasm 03/27/24 03/27/24 History empagliflozin 25 mg tablet 10 mg PO QAM 03/27/24 03/27/24 History (Jardiance) famotidine 10 mg tablet 10 mg PO QAM 03/27/24 03/27/24 History gabapentin 300 mg capsule 600 mg PO AMHS 03/27/24 03/27/24 History lisinopril 2.5 mg tablet 2.5 mg PO QAM 03/27/24 03/27/24 History metformin 1,000 mg tablet 1,000 mg PO BIDM 03/27/24 03/27/24 History montelukast 10 mg tablet 10 mg PO QAM 03/27/24 03/27/24 History multivit,calcium,min-folic acid 1 tab PO HS 03/27/24 03/27/24 History 240 mcg-D3 25 mcg-lycop 300 mcg tablet (One A Day Men Complete) naproxen sodium 550 mg tablet 550 mg PO AMHS 03/27/24 03/27/24 History semaglutide 1 mg/dose (4 mg/3 mL) 1 mg subcut WK 03/27/24 03/27/24 History subcutaneous pen injector (Ozempic) Past Med/Surg History Problem List (Updated 03/28/24 @ 01:58 by Bridger Man MD) NSTEMI (non-ST elevated myocardial infarction) Abnormal EKG (Acute) Elevated troponin I level (Acute) Chest pain, exertional (Acute) AC joint arthropathy Hypertension (Chronic) Hypercholesteremia (Chronic) Rotator cuff arthropathy (Acute 04/22/14) Cellulitis of right lower extremity DM type 2 (diabetes mellitus, type 2) (Chronic) Dyslipidemia (Chronic) H/O colonoscopy (Chronic) History of dental surgery (Chronic) S/P shoulder replacement (Chronic) Severe sepsis Family History Other Cancer Diabetes Heart disease Hypertension Social History Smoking Status: Former smoker Tobacco Type: Cigarettes and Smokeless Tobacco (Dip or Chew) Do You Dip or Chew Tobacco: Yes; Hx Alcohol Use: No Hx Substance Use: No Preferred Language: Kyrgyz Communication Ability: Effective Brass Pourer Required: No Beliefs That Will Affect Care: None marital status: Current Living Situation: Significant Other Current Living Situation Comment: kelsy ribeiro girlfriend current occupational status: unemployed Other Information That Helps Us Care for You: No Feels Safe at Home: Yes Safety Concerns: Feels Safe At This Time Assistive Devices: Glasses Review of Systems Review of Systems: As per HPI, all other systems reviewed and negative Physical Exam Physical Exam: GENERAL: Comfortable, pleasant, no respiratory distress SKIN: Normal color, warm HEENT: Bespectacled, [place] palpebral conjunctivae, no ptosis, moist buccal mucosa NECK : Supple, no tenderness CHEST : CTA, no tenderness HEART : RRR, no obvious murmurs ABDOMEN: no distention, nontender EXTREMITIES : No LE swelling/tenderness, no other conspicuous deformities noted NEUROLOGIC : Coherent, no facial asymmetry, rest tremors, no other gross focality Results & Data Results & Data Vital Signs (Past 12 Hours) Vital Signs Temp Pulse Pulse Resp BP BP Pulse Ox 03/28/24 00:26 74 03/28/24 00:00 74 16 118/66 96 03/27/24 23:31 77 17 118/66 95 03/27/24 23:00 75 19 127/71 93 03/27/24 22:30 86 L 03/27/24 21:57 79 23 121/75 92 03/27/24 21:12 100 03/27/24 21:09 80 19 94 03/27/24 21:00 36.5 C 86 19 136/69 95 03/27/24 20:33 85 03/27/24 20:03 37 C 97 H 15 122/70 95 O2 Del Method O2 Flow Rate 03/28/24 00:26 03/28/24 00:00 Nasal Cannula 2 03/27/24 23:31 Room Air 03/27/24 23:00 Room Air 03/27/24 22:30 Nasal Cannula 0 03/27/24 21:57 Room Air 03/27/24 21:12 Room Air 03/27/24 21:09 Room Air 03/27/24 21:00 Room Air 03/27/24 20:33 03/27/24 20:03 Room Air Laboratory Results Laboratory Results WBC 5.94 K/ul (4.8-10.8) 03/27/24 20:24 RBC 4.75 M/uL (4.70-6.10) 03/27/24 20:24 Hgb 14.3 g/dl (14.0-18.0) 03/27/24 20: Hct 43.1 % (42.0-52.0) 03/27/24 20: MCV 90.7 fL (80.0-100.0) 03/27/24 20: MCH 30.1 pg (25.0-34.0) 03/27/24: MCHC 33.2 g/dL (32.0-36.0) 03/27/24: RDW Std Deviation 43.4 fL (36.4-46.3) 03/27/24: RDW Coeff of Elaine 13.1 % (11.5-14.5) 03/27/24: Plt Count 266 K/uL (130-400) 03/27/24: MPV 10.3 fL (9.4-12.4) 03/27/24: Immature Gran % (Auto) 0.3 % 03/27/24: Neut % (Auto) 74.7 % 03/27/24: Lymph % (Auto) 16.8 % 03/27/24: Centre % (Auto) 6.7 % 03/27/24: Eos % (Auto) 0.8 % 03/27/24: Baso % (Auto) 0.7 % 03/27/24: Neut # (Auto) 4.43 K/uL (1.40-6.50) 03/27/24: Lymph # (Auto) 1.00 K/uL (1.20-3.40) L 03/27/24: [place] # (Auto) 0.40 K/uL (0.11-0.59) 03/27/24: Eos # (Auto) 0.05 K/uL (0.00-0.50) 03/27/24: Baso # (Auto) 0.04 K/uL (0.00-0.20) 03/27/24: Immature Gran # (Auto) 0.02 K/uL (0.01-0.20) 03/27/24: APTT Cancelled 03/27/24:26 PTT Ratio Cancelled 03/27/24 20:26 D-Dimer Cancelled 03/27/24 20:26 Sodium 134 mmol/L (136-145) L 03/27/24 20:24 Potassium 4.3 mmol/L (3.5-5.1) 03/27/24 21:25 Chloride 97 mmol/L (98-107) L 03/27/24 20:24 Carbon Dioxide 26 mmol/L (21-32) 03/27/24 20:24 Anion Gap 11 (3-11) 03/27/24 20:24 BUN 14 mg/dl (6-23) 03/27/24 20:24 Creatinine 0.93 mg/dl (0.6-1.4) 03/27/24 20:24 Est Cr Clr Drug Dosing 77.6 ml/min 03/27/24 20:24 eGFR 87.79 03/27/24 20:24 BUN/Creatinine Ratio 15.1 (10-20) 03/27/24 20:24 Glucose 205 mg/dl (70-99(Fasting)) H 03/27/24 20:24 Calcium 9.1 mg/dl (8.6-10.3) 03/27/24 20:24 Magnesium 1.7 mg/dl (1.7-2.4) 03/27/24 21:25 Total Bilirubin 0.3 mg/dl (0.2-1.0) 03/27/24 20:24 AST 18 U/L (13-39) 03/27/24 21:25 ALT 20 U/L (7-52) 03/27/24 20:24 Alkaline Phosphatase 67 U/L (34-104) 03/27/24 20:24 Troponin I High Sens 43.2 pg/ml (0-20) H 03/27/24 21:25 Total Protein 6.6 gm/dl (6.0-8.3) 03/27/24 20:24 Albumin 4.4 gm/dl (3.4-5.0) 03/27/24 20:24 Globulin 2.2 gm/dl (2.5-4.0) L 03/27/24 20:24 Albumin/Globulin Ratio 2.0 (0.9-2) 03/27/24 20:24 Lipase 46 U/L (11-82) 03/27/24 20:24 Impressions Chest X-Ray 03/27/24 20:08 Exam(s): XR CXR 1 VIEW EXAM: XR Chest, 1 View CLINICAL HISTORY: Reason for exam: Chest pain, nonspecific. TECHNIQUE: Frontal view of the chest. COMPARISON: May 20, 2016 FINDINGS: Lungs: Unremarkable. No consolidation. Pleural space: Unremarkable. No pneumothorax. Heart: Unremarkable. No cardiomegaly. Mediastinum: Unremarkable. Normal mediastinal contour. Bones/joints: There is a left total shoulder arthroplasty, unchanged. No acute fracture. Vasculature: The aortic arch is mildly calcified but appears nondilated. Upper abdomen: Unremarkable as visualized. No pneumoperitoneum under the diaphragm. IMPRESSION: No acute findings in the chest. Electronically signed by: Thomas Acevedo MD 03/27/24 23:40 PM Diagnostic Findings EKG as per my interpretation :Rate 85, NSR, normal axis, T wave flattening T wave abnormalities lateral leads Code Status & VTE Plan VTE Prophylaxis Plan VTE Prophylaxis will be ordered: Yes
[2024-03-28] MEDS: GABAPENTIN 600 MG TAB PO SCH (01:04)
[2024-03-28] MEDS: CITALOPRAM 20 MG TAB PO SCH (01:04)
[2024-03-28] MEDS: METOPROLOL TARTRATE 25 MG TAB PO STA (01:06)
[2024-03-28] MEDS: HEPARIN SODIUM/DEXTROSE 25,000 UNITS/500 ML BAG IV SCH (01:32)
[2024-03-28] MEDS: Heparin IV Adult Wt-Based Standard *NO* INITIAL Bolus Protocol IV STA (01:34)
[2024-03-28] MEDS: INSULIN ASPART PER UNIT CHARGE SC SCH (01:41)
[2024-03-28] MEDS: LANTUS PER UNIT CHARGE SQ SCH (01:42)
[2024-03-28 07:44] LABS: Basophils # (auto) 0.05 K/uL (0.00-0.20); Basophils % (auto) 0.9 %; Eosinophils % (auto) 1.8 %; Hematocrit (blood only) 40.2 % (42.0-52.0); Hemoglobin 13.4 g/dl (14.0-18.0); Immature Granulocytes # (auto) 0.02 K/uL (0.01-0.20); Immature Granulocytes % (auto) 0.4 %; Lymphocytes # (auto) 1.45 K/uL (1.20-3.40); Lymphocytes % (auto) 26.2 %; Mean Corpuscular Hemoglobin 29.8 pg (25.0-34.0); Mean Corpuscular Hgb Conc 33.3 g/dL (32.0-36.0); Mean Corpuscular Volume 89.3 fL (80.0-100.0); Mean Platelet Volume 9.6 fL (9.4-12.4); Monocytes # (auto) 0.48 K/uL (0.11-0.59); Monocytes % (auto) 8.7 %; Neutrophils # (auto) 3.43 K/uL (1.40-6.50); Platelet Count 210 K/uL (130-400); RDW Coefficient of Variation 13.2 % (11.5-14.5); RDW Standard Deviation 43.3 fL (36.4-46.3); White Blood Count 5.53 K/ul (4.8-10.8)
--- NOTE | 2024-03-28 07:51 | Cardiology Consultation ---
Date of Consultation March 28, 2024 History of Present Illness Reason for Consultation: ACS Requesting Physician: Solomon cano Attending Physician: Cristiano Cannon MD History of Present Illness HPI: Patient is a 73 year old male with PMHx signficnat for HTN, HLD and DM type 2 (not on insulin), GERD, anxiety, tremor, MRSA history, and active tobacco use that presented to the ED with complaints of intermittent substernal chest pain x 1 week. Describes pain as He received SL NTG in the ER which EKG on admission demonstrate Sinus rhythm with ST depression in the anterior and lateral leads. High Sensitivity troponin 36.9/43.2 Renal function normal Patient was started on a Heparin gtt Echocardiogram pending Allergies Allergy/AdvReac Type Severity Reaction Status Date / Time No Known Allergies Allergy Unverified 03/27/24 21:17 Home Medications Medication Instructions Recorded Confirmed Type aspirin 81 mg tablet,delayed 81 mg PO QAM 03/27/24 03/27/24 History release atorvastatin 40 mg tablet 40 mg PO QAM 03/27/24 03/27/24 History citalopram 20 mg tablet 20 mg PO HS 03/27/24 03/27/24 History cyclobenzaprine 5 mg tablet 5 mg PO HS PRN Muscle Spasm 03/27/24 03/27/24 History empagliflozin 25 mg tablet 10 mg PO QAM 03/27/24 03/27/24 History (Jardiance) famotidine 10 mg tablet 10 mg PO QAM 03/27/24 03/27/24 History gabapentin 300 mg capsule 600 mg PO AMHS 03/27/24 03/27/24 History lisinopril 2.5 mg tablet 2.5 mg PO QAM 03/27/24 03/27/24 History metformin 1,000 mg tablet 1,000 mg PO BIDM 03/27/24 03/27/24 History montelukast 10 mg tablet 10 mg PO QAM 03/27/24 03/27/24 History multivit,calcium,min-folic acid 1 tab PO HS 03/27/24 03/27/24 History 240 mcg-D3 25 mcg-lycop 300 mcg tablet (One A Day Men Complete) naproxen sodium 550 mg tablet 550 mg PO AMHS 03/27/24 03/27/24 History semaglutide 1 mg/dose (4 mg/3 mL) 1 mg subcut WK 03/27/24 03/27/24 History subcutaneous pen injector (Ozempic) Patient History Family History Other Cancer Diabetes Heart disease Hypertension Social History Smoking Status: Former smoker Tobacco Type: Cigarettes and Smokeless Tobacco (Dip or Chew) Do You Dip or Chew Tobacco: Yes; Hx Alcohol Use: No Hx Substance Use: No Preferred Language: Filipino Communication Ability: Effective Gastroenterology Nurse Practitioner Required: No Beliefs That Will Affect Care: None marital status: Current Living Situation: Significant Other Current Living Situation Comment: kelsy ribeiro girlfriend current occupational status: unemployed Other Information That Helps Us Care for You: No Feels Safe at Home: Yes Safety Concerns: Feels Safe At This Time Assistive Devices: Glasses Results & Data Vital Signs (Past 12 Hours) Vital Signs Temp Pulse Pulse Resp BP BP Pulse Ox 03/28/24 07:10 59 L 03/28/24 07:00 84 20 116/75 92 03/28/24 06:00 60 17 121/68 94 03/28/24 05:01 37.2 C 98 H 18 104/51 L 95 03/28/24 04:00 69 20 93/45 L 93 03/28/24 03:00 65 16 94/49 L 94 03/28/24 02:00 65 14 123/66 96 03/28/24 01:30 36.9 C 71 18 128/76 96 03/28/24 01:04 36.5 C 74 18 109/52 L 97 03/28/24 00:30 03/28/24 00:26 74 03/28/24 00:00 74 16 118/66 96 03/27/24 23:31 77 17 118/66 95 03/27/24 23:00 75 19 127/71 93 03/27/24 22:30 86 L 03/27/24 21:57 79 23 121/75 92 03/27/24 21:12 100 03/27/24 21:09 80 19 94 03/27/24 21:00 36.5 C 86 19 136/69 95 03/27/24 20:33 85 03/27/24 20:03 37 C 97 H 15 122/70 95 Pulse Ox O2 Del Method O2 Del Method O2 Flow Rate 03/28/24 07:10 03/28/24 07:00 Room Air 03/28/24 06:00 Room Air 03/28/24 05:01 Room Air 03/28/24 04:00 Room Air 03/28/24 03:00 Room Air 03/28/24 02:00 Room Air 03/28/24 01:30 Room Air 03/28/24 01:04 Room Air 03/28/24 00:30 97 Room Air 03/28/24 00:26 03/28/24 00:00 Nasal Cannula 2 03/27/24 23:31 Room Air 03/27/24 23:00 Room Air 03/27/24 22:30 Nasal Cannula 0 03/27/24 21:57 Room Air 03/27/24 21:12 Room Air 03/27/24 21:09 Room Air 03/27/24 21:00 Room Air 03/27/24 20:33 03/27/24 20:03 Room Air
[2024-03-28 07:58] LABS: BUN Creatinine Ratio 17.1 (10-20); Calcium 8.6 mg/dl (8.6-10.3); Chol HDL Ratio 2.5 (0-5); Potassium 4.5 mmol/L (3.5-5.1)
[2024-03-28 08:06] LABS: Troponin I High Sensitivity 49.8 pg/ml (0-20)
[2024-03-28 08:09] LABS: ANTI-Xa, UFH(UnfractionatedHep 0.51 IU/ml (0.3-0.7)
[2024-03-28] MEDS: ATORVASTATIN 40 MG TAB PO SCH (08:25)
[2024-03-28] MEDS: ASPIRIN 81 MG ECTAB PO SCH (08:25)
[2024-03-28] MEDS: METOPROLOL SUCC 25MG EXT REL TAB PO SCH (08:26)
[2024-03-28] MEDS: lisinopril 2.5 MG TAB PO SCH (08:26)
[2024-03-28] MEDS: FAMOTIDINE 10 MG TABLET PO SCH (08:26)
[2024-03-28] MEDS: MONTELUKAST SODIUM 10 MG TABLET PO SCH (08:27)
--- NOTE | 2024-03-28 10:50 | Cardiology Consultation ---
Date of Consultation March 28, 2024 Assessment & Plan (1) NSTEMI (non-ST elevated myocardial infarction): (2) Hypertension: (3) Dyslipidemia: (4) DM type 2 (diabetes mellitus, type 2): Plan Continue IV heparin, aspirin, Toprol-XL, statin, and lisinopril. Add clopidogrel 300mg now then 75mg daily. Risk, benefits, alternatives to cardiac catheterization discussed. Patient agreeable to proceed. Scheduled for coronary angiography in a.m. 03/29/2024. Urgent cardiac catheterization will be considered with any recurrent chest discomfort. N.p.o. except medications after midnight. History of Present Illness Reason for Consultation: ACS Requesting Physician: Dr. Man Attending Physician: Cristiano Cannon MD History of Present Illness 73-year-old male presents emergency department with intermittent chest discomfort over the past few weeks. Describes a sharp chest pain provoked with activity and exertion. Notes discomfort when carrying heavy objects and grocery bags from the car. Yesterday he experienced a particular intense episode of ch est pain. He was brought to the ER and treated with sublingual nitroglycerin. Chest pain-free since receiving nitro. IV heparin initiated. No recurrent chest discomfort overnight. Telemetry reveals sinus rhythm. Allergies Allergy/AdvReac Type Severity Reaction Status Date / Time No Known Allergies Allergy Unverified 03/27/24 21:17 Home Medications Medication Instructions Recorded Confirmed Type aspirin 81 mg tablet,delayed 81 mg PO QAM 03/27/24 03/27/24 History release atorvastatin 40 mg tablet 40 mg PO QAM 03/27/24 03/27/24 History citalopram 20 mg tablet 20 mg PO HS 03/27/24 03/27/24 History cyclobenzaprine 5 mg tablet 5 mg PO HS PRN Muscle Spasm 03/27/24 03/27/24 History empagliflozin 25 mg tablet 10 mg PO QAM 03/27/24 03/27/24 History (Jardiance) famotidine 10 mg tablet 10 mg PO QAM 03/27/24 03/27/24 History gabapentin 300 mg capsule 600 mg PO AMHS 03/27/24 03/27/24 History lisinopril 2.5 mg tablet 2.5 mg PO QAM 03/27/24 03/27/24 History metformin 1,000 mg tablet 1,000 mg PO BIDM 03/27/24 03/27/24 History montelukast 10 mg tablet 10 mg PO QAM 03/27/24 03/27/24 History multivit,calcium,min-folic acid 1 tab PO HS 03/27/24 03/27/24 History 240 mcg-D3 25 mcg-lycop 300 mcg tablet (One A Day Men Complete) naproxen sodium 550 mg tablet 550 mg PO AMHS 03/27/24 03/27/24 History semaglutide 1 mg/dose (4 mg/3 mL) 1 mg subcut WK 03/27/24 03/27/24 History subcutaneous pen injector (Ozempic) Patient History Family History Other Cancer Diabetes Heart disease Hypertension Social History Smoking Status: Former smoker Tobacco Type: Cigarettes and Smokeless Tobacco (Dip or Chew) Do You Dip or Chew Tobacco: Yes; Hx Alcohol Use: No Hx Substance Use: No Preferred Language: Bengali Communication Ability: Effective Basket Bottom Machine Operator Required: No Beliefs That Will Affect Care: None marital status: Current Living Situation: Significant Other Current Living Situation Comment: kelsy ribeiro girlfriend current occupational status: unemployed Other Information That Helps Us Care for You: No Feels Safe at Home: Yes Safety Concerns: Feels Safe At This Time Assistive Devices: Glasses Review of Systems Review of Systems: All systems reviewed & are unremarkable except as noted in Subjective Physical Exam Constitutional: well nourished; no acute distress Respiratory: no respiratory distress, no labored breathing and no retractions Auscultation: no crackles, no rales, no rhonchi and no wheezes Cardiovascular: Rate/Rhythm: regular rate and regular rhythm Heart Sounds: normal S1 and normal S2; no murmur Vessels: radial pulses present; no JVD and no carotid bruit Extremities: no edema Gastrointestinal (Abdomen): Inspection/Auscultation: abdomen normal to inspection and normal bowel sounds; abdomen not distended Percussion/Palpation: abdomen soft; abdomen nontender, no guarding and abdomen not rigid Neurologic: CN's II-XI intact bilaterally and moves all extremities; no focal motor deficits Results & Data Vital Signs (Past 12 Hours) Vital Signs Temp Pulse Pulse Resp BP Pulse Ox Pulse Ox 03/28/24 10:30 65 20 116/71 92 03/28/24 08:30 67 18 132/78 93 03/28/24 07:10 59 L 03/28/24 07:00 84 20 116/75 92 03/28/24 06:00 60 17 121/68 94 03/28/24 05:01 37.2 C 98 H 18 104/51 L 95 03/28/24 04:00 69 20 93/45 L 93 03/28/24 03:00 65 16 94/49 L 94 03/28/24 02:00 65 14 123/66 96 03/28/24 01:30 36.9 C 71 18 128/76 96 03/28/24 01:04 36.5 C 74 18 109/52 L 97 03/28/24 00:30 97 03/28/24 00:26 74 03/28/24 00:00 74 16 118/66 96 03/27/24 23:31 77 17 118/66 95 03/27/24 23:00 75 19 127/71 93 O2 Del Method O2 Del Method O2 Flow Rate 03/28/24 10:30 Room Air 03/28/24 08:30 Room Air 03/28/24 07:10 03/28/24 07:00 Room Air 03/28/24 06:00 Room Air 03/28/24 05:01 Room Air 03/28/24 04:00 Room Air 03/28/24 03:00 Room Air 03/28/24 02:00 Room Air 03/28/24 01:30 Room Air 03/28/24 01:04 Room Air 03/28/24 00:30 Room Air 03/28/24 00:26 03/28/24 00:00 Nasal Cannula 2 03/27/24 23:31 Room Air 03/27/24 23:00 Room Air Laboratory Results Cardiac Enzymes 03/27/24 03/27/24 03/28/24 Range/Units 20:24 21:25 07:16 AST TNP 18 Troponin I High Sens 36.9 H 43.2 H 49.8 H (0-20) pg/ml Coagulation 03/27/24 Range/Units 20:26 APTT Cancelled Lipids 03/28/24 Range/Units 07:16 Triglycerides 155 H (0-150) mg/dl Cholesterol 99 (0-200) mg/dl HDL Cholesterol 40 mg/dl Cholesterol/HDL Ratio 2.5 (0-5) CBC 03/27/24 03/28/24 Range/Units 20:24 07:16 WBC 5.94 5.53 (4.8-10.8) K/ul RBC 4.75 4.50 L (4.70-6.10) M/uL Hgb 14.3 13.4 L (14.0-18.0) g/dl Hct 43.1 40.2 L (42.0-52.0) % Plt Count 266 210 (130-400) K/uL Neut # (Auto) 4.43 3.43 (1.40-6.50) K/uL Lymph # (Auto) 1.00 L 1.45 (1.20-3.40) K/uL [place] # (Auto) 0.40 0.48 (0.11-0.59) K/uL Eos # (Auto) 0.05 0.10 (0.00-0.50) K/uL Baso # (Auto) 0.04 0.05 (0.00-0.20) K/uL Comprehensive Metabolic Panel 03/27/24 03/27/24 03/28/24 Range/Units 20:24 21:25 07:16 Sodium 134 L 138 (136-145) mmol/L Potassium TNP 4.3 4.5 Chloride 97 L 103 (98-107) mmol/L Carbon Dioxide 26 26 (21-32) mmol/L BUN 14 14 (6-23) mg/dl Creatinine 0.93 0.82 (0.6-1.4) mg/dl Glucose 205 H 145 H (70-99(Fasting)) mg/dl Calcium 9.1 8.6 (8.6-10.3) mg/dl AST TNP 18 ALT 20 (7-52) U/L Alkaline Phosphatase 67 (34-104) U/L Total Protein 6.6 (6.0-8.3) gm/dl Albumin 4.4 (3.4-5.0) gm/dl Intake and Output 03/27/24 03/28/24 03/28/24 22:59 06:59 14:59 Intake Total 480 / 480 201.133 / 201.133 Output Total 650 / 650 Balance -170 / -170 201.133 / 201.133 Intake: IV 201.133 / 201.133 Heparin Sodium/Dextrose 25,000 201.133 / 201.133 units In 500 ml @ 1,400 UNITS/ HR 28 mls/hr IV .[id number] [facility] Rx #:[id number] Oral 480 / 480 Output: Urine 650 / 650 Other: Weight 82 kg 82 kg Weight Measurement Method Chair Scale Built in [facility] Diagnostic Findings 2D echocardiogram preliminary review: Preserved LV systolic function. Normal wall motion. Borderline anterior mitral valve prolapse with mild mitral regurgitation. ECG Additional Comments: ECG: Normal sinus rhythm, diffuse nonspecific ST-T wave abnormality. (2) Hypertension Hypertension type: primary hypertension Qualified Code(s): I10 - Essential (primary) hypertension
--- NOTE | 2024-03-28 13:22 | Hospitalist Progress Note ---
Date of Service March 28, 2024 Assessment & Plan (1) NSTEMI (non-ST elevated myocardial infarction): Plan: NSTEMI Patient presented with exertional chest pain. EKG on admission; sinus rhythm with ST depression in anterolateral leads High sensitive troponin elevated at 36.9 on admission; elevated to 49.8 Echocardiogram shows EF of 55 to 60%; borderline anterior mitral valve prolapse Continue on heparin drip Plan for possible left heart cath tomorrow a.m. N.p.o. from midnight Loaded with Plavix; continue on aspirin, Plavix, Lipitor, lisinopril, metoprolol residential monitor hypertension, stable- on lisinopril at home, continue hyperlipidemia, on statin Rx DM2 on oral medications, suboptimal control as of recent hemoglobin A1c of 7.24 August 2023 benign familial tremor anxiety/mood disorder, stable past tobacco abuse Time spent evaluating patient, direct bedside care, chart review, placing orders, interpretation of diagnostic studies, discussion with consultants, patient, and family members, as well as other required patient management activities is 50 minutes Please note the above document was generated using voice recognition software. It may contain grammatical, syntax or spelling errors. Any formal questions or concerns about the content, text or information contained within the body of this dictation should be directly addressed to the provider for clarification Admission and Anticipated Discharge Date Admission Date: March 27, 2024 Subjective Patient seen and examined at bedside. He is comfortable; not in distress. He denies any chest pain since being admitted to the hospital No significant events overnight Review of Systems Review of Systems: All systems reviewed & are unremarkable except as noted in Subjective Physical Exam Physical Exam: Constitutional: WD/WN, vitals as above, NAD, sitting up in bed, pleasant, conversing easily Respiratory: normal respiratory effort, lungs clear to auscultation, no wheeze, rales, rhonchi. Normal insp/exp effort, no accessory muscle use Cardiovascular: RRR, no murmur, no edema Vessels: no JVD or carotid bruit Chest: normal inspection of chest Abdomen: normal bowel sounds, soft, nontender, no hepatosplenomegaly Musculoskeletal: no cyanosis or clubbing, extremities motor strength 5/5 Skin: no rashes, warm and dry normal turgor Neurologic: PERRL, EOMI, accommodation nl, no face palsy, no dysarthria CN's II- XI intact bilaterally and moves all extremities Psychiatric: A+Ox3, euthymic affect Results & Data Results & Data Vital Signs (Past 12 Hours) Vital Signs Temp Pulse Pulse Resp BP Pulse Ox O2 Del Method 03/28/24 11:45 37.6 C H 74 18 147/71 H 98 Room Air 03/28/24 11:00 62 18 128/69 92 Room Air 03/28/24 10:30 65 20 116/71 92 Room Air 03/28/24 08:30 67 18 132/78 93 Room Air 03/28/24 07:10 59 L 03/28/24 07:00 84 20 116/75 92 Room Air 03/28/24 06:00 60 17 121/68 94 Room Air 03/28/24 05:01 37.2 C 98 H 18 104/51 L 95 Room Air 03/28/24 04:00 69 20 93/45 L 93 Room Air 03/28/24 03:00 65 16 94/49 L 94 Room Air 03/28/24 02:00 65 14 123/66 96 Room Air 03/28/24 01:30 36.9 C 71 18 128/76 96 Room Air
[2024-03-28 13:45] LABS: ANTI-Xa, UFH(UnfractionatedHep 0.55 IU/ml (0.3-0.7)
[2024-03-28] MEDS: MUPIROCIN 2% OINT 22 GM TUBE EXT SCH (14:09)
[2024-03-28] MEDS: CLOPIDOGREL BISULFATE 300 MG TAB PO STA (14:21)
[2024-03-28] MEDS: CEROVITE ADV FORMULA TAB PO SCH (21:58)
[2024-03-28] MEDS: MELATONIN 3 MG TAB PO PRN (22:23)
[2024-03-29 07:11] LABS: ANTI-Xa, UFH(UnfractionatedHep 0.72 IU/ml (0.3-0.7)
--- NOTE | 2024-03-29 07:58 | Hospitalist Progress Note ---
Date of Service March 29, 2024 Assessment & Plan (1) NSTEMI (non-ST elevated myocardial infarction): Plan: NSTEMI Patient presented with exertional chest pain. EKG on admission; sinus rhythm with ST depression in anterolateral leads High sensitive troponin elevated at 36.9 on admission; elevated to 49.8 Echocardiogram shows EF of 55 to 60%; borderline anterior mitral valve prolapse Patient was started on heparin drip, aspirin, Plavix, lisinopril and metoprolol for NSTEMI. Cardiology consulted. 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 It may contain grammatical, syntax or spelling errors. Any formal questions or concerns about the content, text or information contained within the body of this dictation should be directly addressed to the provider for clarification Admission and Anticipated Discharge Date Admission Date: March 27, 2024 Subjective Patient seen and examined at bedside. Comfortable; not in distress. Denies fever, chills, chest pain, shortness of breath, abdominal pain or urinary symptoms. No significant overnight events Review of Systems Review of Systems: All systems reviewed & are unremarkable except as noted in Subjective Physical Exam Physical Exam: Constitutional: WD/WN, vitals as above, NAD, sitting up in bed, pleasant, conversing easily Respiratory: normal respiratory effort, lungs clear to auscultation, no wheeze, rales, rhonchi. Normal insp/exp effort, no accessory muscle use Cardiovascular: RRR, no murmur, no edema Vessels: no JVD or carotid bruit Chest: normal inspection of chest Abdomen: normal bowel sounds, soft, nontender, no hepatosplenomegaly Musculoskeletal: no cyanosis or clubbing, extremities motor strength 5/5 Skin: no rashes, warm and dry normal turgor Neurologic: PERRL, EOMI, accommodation nl, no face palsy, no dysarthria CN's II- XI intact bilaterally and moves all extremities Psychiatric: A+Ox3, euthymic affect Results & Data Results & Data Vital Signs (Past 12 Hours) Vital Signs Temp Pulse Pulse Resp BP Pulse Ox O2 Del Method 03/29/24 07:20 62 18 117/67 9 L Room Air 03/29/24 03:51 36.4 C L 58 L 18 115/61 94 Room Air 03/29/24 00:30 66 03/28/24 23:54 36.8 C 65 18 125/57 L 94 Room Air 03/28/24 20:56 36.8 C 69 18 129/67 92 Room Air
[2024-03-29] MEDS: CLOPIDOGREL BISULFATE 75 MG TAB PO SCH (09:41)
--- NOTE | 2024-03-29 10:18 | Cardiology Progress Note ---
Date of Service March 29, 2024 Assessment & Plan (1) NSTEMI (non-ST elevated myocardial infarction): (2) Hypertension: (3) Dyslipidemia: (4) DM type 2 (diabetes mellitus, type 2): Plan Continue IV heparin, aspirin, Toprol-XL, statin, and lisinopril. Clopidogrel begun yesterday with load N.p.o. after midnight for planned cardiac catheterization today No contraindications to procedure Admission and Anticipated Discharge Date Admission Date: March 27, 2024 Subjective Patient was seen and personally examined. Chart, medications, telemetry r eviewed. No chest pain or discomfort overnight. N.p.o. after midnight. No prior difficulties with anesthesia or sedation. Edentulous with dentures removed Patient presented with stuttering chest pain times several days duration, pattern consistent with non-ST segment elevation myocardial infarction. EKG with nonspecific ST segment changes Pain-free since admission Review of Systems Review of Systems: All systems reviewed & are unremarkable except as noted in Subjective Physical Exam Constitutional: well nourished; no acute distress Respiratory: no respiratory distress, no labored breathing and no retractions Auscultation: no crackles, no rales, no rhonchi and no wheezes Cardiovascular: Rate/Rhythm: regular rate and regular rhythm Heart Sounds: normal S1 and normal S2; no murmur Vessels: radial pulses present; no JVD and no carotid bruit Extremities: no edema Gastrointestinal (Abdomen): Inspection/Auscultation: abdomen normal to inspection and normal bowel sounds; abdomen not distended Percussion/Palpation: abdomen soft; abdomen nontender, no guarding and abdomen not rigid Neurologic: CN's II-XI intact bilaterally and moves all extremities; no focal motor deficits Results & Data Vital Signs (Past 12 Hours) Vital Signs Temp Pulse Pulse Resp BP Pulse Ox O2 Del Method 03/29/24 09:29 61 03/29/24 07:20 62 18 117/67 9 L Room Air 03/29/24 03:51 36.4 C L 58 L 18 115/61 94 Room Air 03/29/24 00:30 66 03/28/24 23:54 36.8 C 65 18 125/57 L 94 Room Air Laboratory Results Laboratory Results - last 24 hr 03/28/24 03/28/24 03/28/24 11:43 13:07 16:18 Heparin Anti-Xa, Unfract 0.55 POC Glucose 141 H 141 H 03/28/24 03/29/24 03/29/24 20:49 05:42 07:22 Heparin Anti-Xa, Unfract 0.72 H* POC Glucose 141 H 166 H (2) Hypertension Hypertension type: primary hypertension Qualified Code(s): I10 - Essential (primary) hypertension
[2024-03-29 14:03] LABS: ANTI-Xa, UFH(UnfractionatedHep < 0.10 IU/ml (0.3-0.7)
--- NOTE | 2024-03-29 14:46 | Pre Anesthesia Assessment ---
Date of Service March 29, 2024 Pre Sedation Assessment Vital Signs Temp Pulse Pulse Resp BP Pulse Ox O2 Del Method 03/29/24 14:07 56 L 14 131/69 93 Room Air 03/29/24 13:43 58 L 03/29/24 11:26 58 L 18 128/68 94 Room Air 03/29/24 09:29 61 03/29/24 07:20 62 18 117/67 9 L Room Air 03/29/24 03:51 36.4 C L 58 L 18 115/61 94 Room Air 03/29/24 00:30 66 03/28/24 23:54 36.8 C 65 18 125/57 L 94 Room Air 03/28/24 20:56 36.8 C 69 18 129/67 92 Room Air 03/28/24 15:43 36.8 C 71 18 122/65 93 Room Air 03/28/24 14:48 64 Cardiovascular RRR, no murmur, no edema Respiratory normal respiratory effort, lungs clear to auscultation Pre-Sedation Airway Assessment Smoking Status: Former smoker Hx Sleep Apnea: No Short, Thick Neck: No Thyromental Distance: > or= 3.5 Finger Breadths Oral Cavity: + Dentures Mallampati Class: IV ASA: ASA4 NPO Status Date of Last Intake of Fluids: 03/28/24 Time of Last Intake of Fluids: 22:00 Date of Last Intake of Solid Food: 03/28/24 Time of Last Intake of Solid Foods: 22:00 Notes The planned sedation has been discussed with the patient. Informed Consent was obtained. I have identified the patient, determined the appropriateness of sedation and have assessed the patient immediately prior to the procedure. All medicine(s) and interventions are by my order.
[2024-03-29] MEDS: fentaNYL citrate PF 100 MCG/2 ML VIAL ONE (15:30)
[2024-03-29] MEDS: HEPARIN (PORCINE) 1000 UNIT/ML 10 ML (CATH LAB USE ONLY) ONE (15:30)
[2024-03-29] MEDS: OPTIRAY 350 ONE (15:30)
[2024-03-29] MEDS: MIDAZOLAM HCL 1 MG/ML 2ML VIAL ONE (15:30)
[2024-03-29] MEDS: niCARdipine 2,000 MCG/20 ML SYR ONE (15:31)
[2024-03-29] MEDS: NITROGLYCERIN/D5W 100MCG/ML 20ML SYR ONE (15:31)
--- NOTE | 2024-03-29 15:38 | Post Anesthesia Assessment ---
Date of Service March 29, 2024 Post Sedation Assessment Vital Signs Temp Pulse Pulse Resp BP Pulse Ox O2 Del Method 03/29/24 14:07 56 L 14 131/69 93 Room Air 03/29/24 13:43 58 L 03/29/24 11:26 58 L 18 128/68 94 Room Air 03/29/24 09:29 61 03/29/24 07:20 62 18 117/67 9 L Room Air 03/29/24 03:51 36.4 C L 58 L 18 115/61 94 Room Air 03/29/24 00:30 66 03/28/24 23:54 36.8 C 65 18 125/57 L 94 Room Air 03/28/24 20:56 36.8 C 69 18 129/67 92 Room Air 03/28/24 15:43 36.8 C 71 18 122/65 93 Room Air Recovery Score Activity: Moves 4 extremities Respiration: Deep Breath/Cough Circulation: +/-20% PreAnes Value Consciousness: Fully Awake Oxygen Saturation: > 92% On Room Air Discharge Sedation Level of Care: Fast Track Phase II Post Sedation Plan On clinical assessment, the patient appears to have tolerated the sedation without complications. Patient is recovering as anticipated. Patient will continue to be monitored by nursing and may be discharged when sedation discharge criteria are met per below protocol. Upon Completions of procedure up to 15 minutes continue every 5 minute vital signs and the P.A.R. score; then discharge to a Phase I or Fast Track to Phase II per the following guidelines: * Discharge Patient to appropriate Phase II area if PAR is 8 or greater or return to pre- procedure baseline. The post - procedure orders will be as directed. * If PAR score is less than 8 or not return to pre-procedure baseline then patient will follow Phase I monitoring till PAR is reached for Phase II. The Phase I may be done in procedure room or may call to secure a Phase I area. * If naloxone or flumazenil are used for reversal, hold in Phase I for continued monitoring from when last reversal dose was given for a minimum of 60 minutes or longer pending the nurse and/or physician discretion of patient condition before discharge to Phase II. Please call the Sedation Physician to re-evaluate and complete post-note for discharge to Phase II area. Do NOT discharge from procedure sedation or Phase 1 until post- sedation evaluation note is complete by procedure /sedation MD Sedation Discharge Instructions to be given to the patient at discharge to home. [facility] Procedure Codes (Charges) Indication for Procedure Indication for procedure: unstable angina Sedation/Anesthesia Procedure 1: Sedation/Anesthesia: 83514 Mod Sedation by the same physician;Init15 Min Child Age 5 & Up (initial 15 min, start 1517, end 1530) Total Sedation Time (minutes): 13
--- NOTE | 2024-03-29 15:51 | Communication Note ---
Date of Service: March 29, 2024 Patient referred and underwent coronary angiography today. Images reviewed immediately post procedure. Study demonstrated critical distal left main rishi nosis with good distal targets. Will make arrangements for transfer to [facility]. Discussed in detail with patient. Images being forward electronically and DVD created
--- NOTE | 2024-03-29 16:17 | Discharge Summary ---
Date of Service March 29, 2024 Admission HPI Per Admitting Provider History obtained from patient and records. Medical history significant for hypertension, hyperlipidemia, DM2 on oral medications, GERD, benign familial tremor, anxiety/mood disorder, past tobacco abuse, history of MRSA. Last confinement 2015 for prepatellar bursitis status post aspiration. Patient with intermittent substernal chest pain at home since last week. Chest pain described as tightness without radiation. Nonpleuritic. Some SOB without cough symptoms. Different from reflux. Compliant with home medications. Chest pain improved with nitroglycerin administration at the ER. Medical History as above Surgical History : Multiple shoulder surgeries, dental surgery, ulnar nerve revision Family History : Heart disease, DM, COPD Personal/Social history : Past tobacco abuse, no EtOH intake, retired from construction work Admission Exam Per Admitting Provider GENERAL: Comfortable, pleasant, no respiratory distress SKIN: Normal color, warm HEENT: Bespectacled, Braman palpebral conjunctivae, no ptosis, moist buccal mucosa NECK : Supple, no tenderness CHEST : CTA, no tenderness HEART : RRR, no obvious murmurs ABDOMEN: no distention, nontender EXTREMITIES : No LE swelling/tenderness, no other conspicuous deformities noted NEUROLOGIC : Coherent, no facial asymmetry, rest tremors, no other gross focality Principal Diagnosis NSTEMI Discharge Exam Constitutional: WD/WN, vitals as above, NAD, sitting up in bed, pleasant, conversing easily Respiratory: normal respiratory effort, lungs clear to auscultation, no wheeze, rales, rhonchi. Normal insp/exp effort, no accessory muscle use Cardiovascular: RRR, no murmur, no edema Vessels: no JVD or carotid bruit Chest: normal inspection of chest Abdomen: normal bowel sounds, soft, nontender, no hepatosplenomegaly Musculoskeletal: no cyanosis or clubbing, extremities motor strength 5/5 Skin: no rashes, warm and dry normal turgor Neurologic: PERRL, EOMI, accommodation nl, no face palsy, no dysarthria CN's II- XI intact bilaterally and moves all extremities Psychiatric: A+Ox3, euthymic affect Discharge Data Allergies Allergy/AdvReac Type Severity Reaction Status Date / Time No Known Allergies Allergy Unverified 03/27/24 21:17 Consultations 03/27/24 21:40 ED Decision to Admit Stat 03/27/24 23:30 Consult Cardiology Routine Procedures Performed Operation Date: 03/29/24 12:30 Actual Procedures p Cineradiography w/Routine Exam - Александр Metz MD, PhD p Cath, Coronaries ONLY (no LV) - Александр Metz MD, PhD Ordered Studies 03/29/24 06:39 CL Cath Imgs for PACS use only Routine Hospital Course (1) NSTEMI (non-ST elevated myocardial infarction): NSTEMI Patient presented with exertional chest pain. EKG on admission; sinus rhythm with ST depression in anterolateral leads High sensitive troponin elevated at 36.9 on admission; elevated to 49.8 Echocardiogram shows EF of 55 to 60%; borderline anterior mitral valve prolapse During the hospitalization,Patient was started on heparin drip, aspirin, Plavix( loaded with 300mg on 03/28/2024), lisinopril and metoprolol for NSTEMI. Last dose of plavix on 9 am on 03/29/1024. Patient underwent left heart cath on 03/29/2024; found to have critical distal left main stenosis with good distal targets. Patient accepted for transfer to [facility] for further intervention. Please note the above document was generated using voice recognition software. It may contain grammatical, syntax or spelling errors. Any formal questions or concerns about the content, text or information contained within the body of this dictation should be directly addressed to the provider for clarification Total Time Total Time Spent Total Time Spent (In Minutes): 45 Total Time Includes: Examination of the Patient, Discharge Planning, Medication Reconciliation, Communication With Other Providers and Other Discharge Plan Discharge Items Patient Disposition: Transfer Acute Care Hospital Reason For Visit: ACS Discharge Diagnosis: NSTEMI Activity: Resume your previous activity Non-emergency contact: Primary Care Provider Call non-emergency contact if: you have any medication questions and your symptoms worsen Follow-up/Referrals: Rolando Schultz MD [Primary Care Provider] - Diet: Regular Addtl Attending Provider Instructions: Please follow up with PCP after discharge from the hospital Addtl Medical Assembly Provider Instructions: Date of Service: March 29, 2024 Current Inpatient Medications Aspirin (Aspirin 81 Mg Ectab) [facility] Stop: 04/27/24 08:59 Last Admin: 03/29/24 10:15 Dose: 81 mg Atorvastatin Calcium (Atorvastatin 40 Mg Tab) 40 mg PO QAM [facility] Stop: 04/27/24 08:59 Last Admin: 03/29/24 10:15 Dose: 40 mg Citalopram Hydrobromide (Citalopram 20 Mg Tab) 20 mg PO HS [facility] Stop: 04/26/24 22:59 Last Admin: 03/28/24 21:50 Dose: 20 mg Clopidogrel Bisulfate (Clopidogrel Bisulfate 75 Mg Tab) [facility] Stop: 04/28/24 08:59 Last Admin: 03/29/24 09:41 Dose: 75 mg Dextrose (Dextrose 50% 50 Ml Syringe) 25 - 50 ml IV UD PRN; Protocol PRN Reason: Hypoglycemia Protocol Stop: 04/27/24 00:29 Famotidine (Famotidine 10 Mg Tablet) 10 mg PO [facility] Stop: 04/27/24 08:59 Last Admin: 03/29/24 10:16 Dose: 10 mg Gabapentin (Gabapentin 600 Mg Tab) 600 mg PO [facility] Stop: 04/26/24 22:59 Last Admin: 03/29/24 10:15 Dose: 600 mg Glucagon (Glucagon For Inj 1 Mg Vial) 1 mg SQ UD PRN; Protocol PRN Reason: Hypoglycemia Protocol Stop: 04/27/24 00:29 Glucose (Glucose 10 Tab/Tube) 4 - 8 tab PO UD PRN; Protocol PRN Reason: Hypoglycemia Protocol Stop: 04/27/24 00:29 Glucose (Glucose 40% Gel 15 Gm Tube) 15 - 30 gm PO UD PRN; Protocol PRN Reason: Hypoglycemia Protocol Stop: 04/27/24 00:29 Promethazine HCl (Phenergan) 6.25 mg in 50.25 mls @ 201 mls/hr IV Q6H PRN PRN Reason: Nausea And Vomiting Stop: 04/26/24 22:57 Heparin Sodium/Dextrose (Heparin Sodium/Dextrose) 25,000 units in 500 mls @ 26 mls/hr IV .[id number] [facility]; Protocol Stop: 04/26/24 23:44 Last Titration: 03/29/24 07:25 Dose: 0 units/hr, 0 mls/hr Insulin Aspart (Insulin Aspart Per Unit Charge) 0 units SC [facility] Stop: 04/27/24 00:29 Last Admin: 03/29/24 11:34 Dose: Not Given Insulin Glargine (Lantus Per Unit Charge) 5 units SQ HS [facility] Stop: 04/27/24 00:29 Last Admin: 03/28/24 21:50 Dose: 5 units Lisinopril (Lisinopril 2.5 Mg Tab) 2.5 mg PO QAM [facility] Stop: 04/27/24 08:59 Last Admin: 03/29/24 10:15 Dose: 2.5 mg Melatonin (Melatonin 3 Mg Tab) 3 mg PO HS PRN PRN Reason: Sleep Stop: 04/27/24 22:05 Last Admin: 03/28/24 22:23 Dose: 3 mg Metoprolol Succinate (Metoprolol Succ 25mg Ext Rel Tab) 25 mg PO QAM [facility] Stop: 04/27/24 08:59 Last Admin: 03/29/24 11:08 Dose: 25 mg Miscellaneous (Carbohydrates For Hypoglycemia ) 15 - 30 gm PO UD PRN PRN Reason: Hypoglycemia Protocol Stop: 04/27/24 00:29 Montelukast Sodium (Montelukast Sodium 10 Mg Tablet) 10 mg PO QAM [facility] Stop: 04/27/24 08:59 Last Admin: 03/29/24 10:16 Dose: 10 mg Morphine Sulfate (Morphine Sulfate 2 Mg/Ml Carp) 2 mg IV Q3H PRN PRN Reason: Pain Stop: 04/10/24 22:57 Multivitamins/Minerals (Cerovite Adv Formula Tab) 1 tab PO HS [facility] Stop: 04/27/24 20:59 Last Admin: 03/28/24 21:58 Dose: Not Given Mupirocin (Mupirocin 2% Oint 22 Gm Tube) 1 appln EXT BID [facility] Stop: 04/02/24 13:29 Last Admin: 03/29/24 09:40 Dose: Not Given Tramadol HCl (Tramadol Hcl 50 Mg Tablet) 25 - 50 mg PO Q4H PRN PRN Reason: Pain Stop: 04/26/24 22:57 Pending Studies at Discharge: No Stand-Alone Forms: [facility] Skilled Items Patient informed of condition?: No DNR: No Discharge Level of Care: Other Communicable Disease: No Discharge Prognosis: Stable Lines: Peripheral IV Urinary Catheter: No Medications and DC Order Prescriptions: Continued atorvastatin 40 mg tablet 40 mg PO QAM metformin 1,000 mg tablet 1,000 mg PO BIDM gabapentin 300 mg capsule 600 mg PO [facility] naproxen sodium 550 mg tablet 550 mg PO [facility] famotidine 10 mg tablet 10 mg PO QAM montelukast 10 mg tablet 10 mg PO QAM Jardiance 25 mg tablet 10 mg PO QAM lisinopril 2.5 mg tablet 2.5 mg PO QAM aspirin [Aspirin Low-Strength] 81 mg Tablet,Delayed Release (Dr/Ec) 81 mg PO QAM Ozempic 1 mg/dose (4 mg/3 mL) pen injector 1 mg SUBCUT WK Rx Instructions: mondays One A Day Men Complete 240-25-300 mcg Tablet 1 tab PO HS citalopram 20 mg tablet 20 mg PO HS cyclobenzaprine 5 mg tablet 5 mg PO HS PRN (Reason: Muscle Spasm) Discharge Orders: Discharge Order (Routine); Ordered 03/29/24 Ordered By: Cristiano Cannon Admission Data Admit Date/Time: 03/27/24 22:56 Attending Provider: Cristiano Cannon Admit Provider: Bridger Man Primary Care Provider: Rolando Schultz Other Providers: Bridger Man; Raimundo Alavrez; Hamilton Fernandez
--- NOTE | 2024-03-30 11:58 | Electrocardiogram Report ---
Test Reason : Blood Pressure : */* mmHG Vent. Rate : 84 BPM Atrial Rate : 84 BPM P-R Int : 190 ms QRS Dur : 78 ms QT Int : 356 ms P-R-T Axes : 60 32 104 degrees QTcB Int : 420 ms Normal sinus rhythm Nonspecific ST and T wave abnormality Abnormal ECG When compared with ECG of 20-May-2016 13:45, ST now depressed in Anterolateral leads T wave amplitude has decreased in Lateral leads Confirmed by Armando Whitley ([id number]) on 03/30/2024 11:58:05 AM Referred By: NO PCP Confirmed By: Armando Whitley
--- NOTE | 2024-04-01 17:52 | Cardiac Catheterization ---
[facility] Data: Parking Assistant Cardiac Status Clinical evaluation leading to the procedure CAD Presenation: Non STEMI Anginal Classification: CCS IV Heart Failure: No Coronary Anatomy Dominant: Right Left Main (% Stenosis): Distal (99%) LAD (% Stenosis): Proximal (30 to 40%) D1 (% Stenosis): Ostial (70%) Circumflex (% Stenosis): Normal OM1 (% Stenosis): Normal OM2 (% Stenosis): Mid (70%) OM3 (% Stenosis): Normal L PL1 (% Stenosis): Normal RCA (% Stenosis): Normal R PDA (% Stenosis): Normal R PL1 (% Stenosis): Normal Diagnostic Physicians Name: Александр Metz MD, PhD Closure Device Recommendations: CABG Cardiac Cath Procedure Full Procedure Date March 29, 2024 Pre-Procedure Diagnosis Pre-Procedure Diagnosis: Non STEMI AUC Score AUC Score: 07 Post-Procedure Diagnosis Post-Procedure Diagnosis: Severe CAD Procedure(s) Performed Procedure(s) Performed: Coronary Angiography [employer] Александр Metz MD, PhD Estimated Blood Loss Estimated Blood Loss: 3 cc Medication(s) Medication(s): Fentanyl, Heparin, Lidocaine 1%, Nicardipine, Nitroglycerin and Versed Summary of Findings Brief description: Patient was brought to the cardiac catheterization suite where he was shaved and prepped in a sterile fashion. Sedated using IV Versed and fentanyl. Soft tissues of the right wrist were anesthetized using 2 mL of 1% Xylocaine. The right radial artery was accessed with modified Seldinger technique and a 6 Spanish radial artery glide sheath was placed. Patient had already received heparin on the floor. He received antispasmodics including nicardipine and nitroglycerin. All catheters were advanced and exchanged over a 0.035 J-tip wire. Left coronary angiography in orthogonal views with a 5 Spanish Enochs 4 diagnostic catheter. Right coronary angiography in orthogonal views with a 5 Spanish JR4 diagnostic catheter. Diagnostic catheters were removed. Radial artery sheath was removed and hemostasis was obtained using the TR band. Patient was hemodynamically stable and asymptomatic. He was returned to the recovery area. This ended the case. Coronary angiography findings: TTT-gyzjs-bmehykb vessel bifurcating into LAD and circumflex. Distally there is a heavily calcified 99% stenosis. LAD-this is medium to large caliber and transapical. Gives a large branching first diagonal. Proximal segment has 30 to 40% stenosis. The D1 has an ostial 70% stenosis. The remainder of the LAD and its branches have no angiographically evident disease. WAs-fmlbu-goanwkz and nondominant. Gives a small caliber OM1 as it travels in the AV groove and then a large branching OM 2. The OM 2 has 50% disease before its first branch point and then the more inferior branch has up to 70% stenosis. The AV groove vessel continues and gives a small OM 3 before it terminates as a small to medium caliber posterolateral branch. GBK-fqodx-gqaglvo and dominant. Bifurcates distally into the PDA and posterolateral branches. The RCA and its branches have no disease. Summary: 1. Severe subtotal occlusion of the distal LAD. 2. Recommend guideline directed medical therapy for secondary prevention of coronary artery disease per primary cardiology team. 3. Refer to tertiary center urgently for coronary artery bypass grafting or high risk unprotected left main stent. Hemodynamics Rest Ao:: 111/73 mmHg Final Ao: 121/77 mmHg LV: Not performed Recommendations Recommendations: CABG Radiation Exposure (mGy) 395 mGy, fluoroscopy time 2.7 minutes Contrast (mls) 40 Anesthesia 1 mg Versed, 25 mcg fentanyl. Start time 1517, end time 153 Procedural Complication(s) None Disposition Parking Assistant Holding/Recovery I attest to the content of the Intraoperative Record and any orders documented therein. Any exceptions are noted below. [facility] Card Cath Procedure Codes Cardiac Catheterization Procedure 1: Cardiovascular Cath Procedures: 39613 Coronaries Moderate Sedation Procedure 1: Sedation/Anesthesia: 09303 Mod Sedation by the same physician;Init15 Min Child Age 5 & Up (Initial 15 minutes, start time 1517, end time 1531 ) PG Care Time/CCT Total # of Minutes Spent Total Time Spent with Patient: Total time spent is greater than 50% in coordination of care (as documented) at patient's floor/unit and/or counseling patient:
== END 2024-03-29 20:00 | disposition short-term general hospital (02) | DRG 282 ==
LOC: ED 20:00 → EDINP 22:56 → 2E 03-28 11:10
PROC: CLB.CCO (2024-03-29 12:30)

== ENCOUNTER 2025-01-13 20:08 | Inpatient (IN) ==
[2025-01-13 20:37] LABS: Hematocrit (blood only) 42.3 % (42.0-52.0); Hemoglobin 14.1 g/dl (14.0-18.0); Immature Granulocytes # (auto) 0.06 K/uL (0.01-0.20); Immature Granulocytes % (auto) 0.5 %; Mean Corpuscular Hemoglobin 28.8 pg (25.0-34.0); Mean Corpuscular Volume 86.5 fL (80.0-100.0); Platelet Count 182 K/uL (130-400); RDW Standard Deviation 43.5 fL (36.4-46.3); Red Blood Count 4.89 M/uL (4.70-6.10); White Blood Count 11.21 K/ul (4.8-10.8)
--- NOTE | 2025-01-13 20:37 | Emergency Department Note ---
Impression & Plan Hypoxia Admission ED Provider Note HPI: History obtained from patient. The patient is a 74-year-old male with history of CAD status post CABG, diabetes, who presents the emergency department with a chief complaint of generalized weakness, difficulty with ambulation, and transient chest pain. Patient arrives via EMS from home with generalized weakness and decreased p.o. intake as well. Patient is normally independent but apparently over the past several days the patient has not had the ability to ambulate much or move independently. Primus report the patient was hypotensive and slightly hypoxic in the field and was febrile at 102.3. Patient was given supplemental oxygen in the field as well as IV Tylenol and an IV fluid bolus with good improvement in his vital signs. On arrival here to the ED the patient is alert, he denies any current chest pain, he states he does not feel short of breath. The patient does complain of generalized weakness. He does not have any focal deficits on arrival. ROS: - Per HPI Differential Diagnosis: Sepsis, pneumonia, pulmonary embolism, ACS, urinary tract infection, stroke, intracranial hemorrhage, amongst other potential pathologies. *Outpatient medications and allergy history reviewed. PE: General: Alert HEENT: Normocephalic, trachea midline Eyes: Extraocular eye movement is intact, no scleral erythema Pulmonary: Clear to auscultation bilaterally, no wheezing Cardio: Regular rate and rhythm GI: Abdomen is soft to palpation : No suprapubic tenderness MSK: No evidence of trauma or malformation of the extremities, no edema Skin: No evidence of rash Neuro: Alert, no focal deficits Psychiatric: Cooperative INDEPENDENT INTERPRETATIONS: monitor and storage bin tender: (As interpreted by myself): - An order was placed for continuous cardiac monitoring - Patient was noted to be in sinus rhythm with a rate of 90 EKG: (As interpreted by myself): Rate: 94 Rhythm: Sinus rhythm Intervals: MT interval 216 ms, otherwise within normal limits ST changes: No ST elevation Time: 2014 Chest x-ray: (As interpreted by myself): No acute process Interventions provided in ED: - Supplemental oxygen Medical Decision Making: IV was established and lab work obtained, patient was placed on monitoring analyst. Lab work shows a mild white blood cell count elevation at 11.21, hemoglobin is normal, platelet count is normal, CMP does not show any evidence of any critical findings. Troponin is negative, BNP is within normal limits. Procalcitonin is low, TSH is within normal limits. Urinalysis shows trace ketones and 3+ glucose but no evidence of any obvious infection. Viral panel testing was obtained and is negative. CT imaging of the head does not show any evidence of any obvious stroke or intracranial bleeding. Chest x-ray does not show any evidence of acute disease. Given the patient's presenting hypoxia, CT angiography of the chest was also obtained, this does not show any evidence of pulmonary embolism or pneumonia. On my reevaluation the patient is alert, he has had some transient hypotension here in the ED but his blood pressure on my reassessment is 108/61. He appears to be in no acute distress. Unclear source for the patient's hypoxia, he does not appear to be septic. I feel the patient would benefit from observation admission for further management and continuation of supplemental oxygen and possibly echocardiography. I discussed the patient's presentation with the on-call hospitalist, Dr. Hahn, and he was in agreement to admit the patient for further care. Patient was in agreement to this plan he was admitted in stable condition. Consultants/Discussions held with other healthcare providers: - Hospitalist, Dr. Hahn Disposition discussion held by myself with: - Patient and patient's brother at the bedside Diagnosis: 1. Hypoxia, acute, nonspecific 2. Generalized weakness/fatigue, acute 3. Ambulatory dysfunction, acute Disposition: Admission Ramses Carmona DO Emergency Medicine Past Med/Surg History Problem List (Updated 01/14/25 @ 00:24 by Ramses Carmona DO) Hypoxia (Acute) NSTEMI (non-ST elevated myocardial infarction) Abnormal EKG (Acute) Elevated troponin I level (Acute) Chest pain, exertional (Acute) AC joint arthropathy Hypertension (Chronic) Hypercholesteremia (Chronic) Rotator cuff arthropathy (Acute 04/22/14) Cellulitis of right lower extremity DM type 2 (diabetes mellitus, type 2) (Chronic) Dyslipidemia (Chronic) H/O colonoscopy (Chronic) History of dental surgery (Chronic) S/P shoulder replacement (Chronic) Severe sepsis Medical History (Updated 01/14/25 @ 00:24 by Ramses Carmona DO) Dyslipidemia Family History Other Cancer Diabetes Heart disease Hypertension Social History (Reviewed 05/10/24 @ 13:31 by MORENO Haro Smoking Status: Never smoker Tobacco Type: Cigarettes and Smokeless Tobacco (Dip or Chew) Second Hand Exposure: No; Do You Dip or Chew Tobacco: Yes (Quit with surgery); Hx Alcohol Use: No Hx Substance Use: No Preferred Language: Vietnamese Communication Ability: Effective Shaft Mechanic Required: No Beliefs That Will Affect Care: None marital status: Current Living Situation: Significant Other Current Living Situation Comment: kelsy ribeiro girlfriend current occupational status: unemployed current occupation: Retired Feels Safe at Home: Yes Assistive Devices: None Allergies Allergies Allergy/AdvReac Type Severity Reaction Status Date / Time No Known Allergies Allergy Verified 01/13/25 21:57 Home Meds Home Medications Medication Instructions Recorded Confirmed aspirin 81 mg tablet,delayed 81 mg PO QAM 03/27/24 01/13/25 release atorvastatin 40 mg tablet 40 mg PO QAM 03/27/24 01/13/25 citalopram 20 mg tablet 20 mg PO HS 03/27/24 01/13/25 empagliflozin 25 mg tablet 25 mg PO QAM 03/27/24 01/13/25 (Jardiance) famotidine 10 mg tablet 10 mg PO QAM 03/27/24 01/13/25 gabapentin 300 mg capsule 600 mg PO AMHS 03/27/24 01/13/25 metformin 1,000 mg tablet 1,000 mg PO BIDM 03/27/24 01/13/25 multivit,calcium,min-folic acid 1 tab PO QAM 03/27/24 01/13/25 240 mcg-D3 25 mcg-lycop 300 mcg tablet (One A Day Men Complete) acetaminophen 650 mg 650 mg PO Q8H PRN Pain 01/13/25 01/13/25 tablet,extended release clopidogrel 75 mg tablet 75 mg PO QAM 01/13/25 01/13/25 metoprolol succinate 50 mg 50 mg PO QAM 01/13/25 01/13/25 tablet,extended release 24 hr semaglutide 2 mg/dose (8 mg/3 mL) 2 mg subcut WK 01/13/25 01/13/25 subcutaneous pen injector (Ozempic) triamcinolone acetonide 0.1 % 1 applic topical DIRECTED PRN 01/13/25 01/13/25 topical cream NEEDED. Results & Data (ED) Vital Signs Vital Signs - 24 hr 01/13/25 20:08 01/13/25 20:08 01/13/25 20:15 Temperature 37.2 C Temperature Source Oral Pulse Rate 94 H 94 H Pulse Rate from SpO2 Sensor 95 H Respiratory Rate 18 18 Respiratory Effort / Characteristics Non-Labored Spontaneous Respiratory Depth Normal Respiratory Pattern Regular Blood Pressure 113/64 113/64 Blood Pressure Mean 80 80 Pulse Oximetry 89 L 89 L 93 Oxygen Delivery Method Room Air Room Air Nasal Cannula Oxygen Flow Rate 2 Sepsis Recent Fever Within 48 Hours Yes Sepsis New/Unexplained Change in Mental Status Yes Sepsis Action Taken by Nursing No Action Required Oxygen Flow Rate - Titration 2 Pulse Oximetry Post Tiitration 94 01/13/25 20:25 01/13/25 21:05 01/13/25 21:33 Temperature Temperature Source Pulse Rate 88 88 Pulse Rate from SpO2 Sensor 88 Respiratory Rate 27 H Respiratory Effort / Characteristics Respiratory Depth Respiratory Pattern Blood Pressure Blood Pressure Mean Pulse Oximetry 94 96 Oxygen Delivery Method Nasal Cannula Nasal Cannula Oxygen Flow Rate 2 2 Sepsis Recent Fever Within 48 Hours Sepsis New/Unexplained Change in Mental Status Sepsis Action Taken by Nursing Oxygen Flow Rate - Titration Pulse Oximetry Post Tiitration 01/13/25 22:09 01/13/25 22:24 01/13/25 22:54 Temperature Temperature Source Pulse Rate 85 88 86 Pulse Rate from SpO2 Sensor 88 86 Respiratory Rate 22 22 22 Respiratory Effort / Characteristics Respiratory Depth Respiratory Pattern Blood Pressure 81/44 L 94/57 L 108/61 Blood Pressure Mean 53 69 76 Pulse Oximetry 95 93 100 Oxygen Delivery Method Nasal Cannula Nasal Cannula Nasal Cannula Oxygen Flow Rate 2 2 2 Sepsis Recent Fever Within 48 Hours Sepsis New/Unexplained Change in Mental Status Sepsis Action Taken by Nursing Oxygen Flow Rate - Titration Pulse Oximetry Post Tiitration 01/13/25 23:00 Temperature Temperature Source Pulse Rate 86 Pulse Rate from SpO2 Sensor Respiratory Rate 22 Respiratory Effort / Characteristics Respiratory Depth Respiratory Pattern Blood Pressure 99/53 L Blood Pressure Mean 65 Pulse Oximetry 96 Oxygen Delivery Method Nasal Cannula Oxygen Flow Rate 2 Sepsis Recent Fever Within 48 Hours Sepsis New/Unexplained Change in Mental Status Sepsis Action Taken by Nursing Oxygen Flow Rate - Titration Pulse Oximetry Post Tiitration Laboratory Data 01/13/25 20:15 01/13/25 20:15 Lab Results 01/13/25 01/13/25 01/13/25 Range/Units 20:15 20:47 21:11 WBC 11.21 H (4.8-10.8) K/ul RBC 4.89 (4.70-6.10) M/uL Hgb 14.1 (14.0-18.0) g/dl Hct 42.3 (42.0-52.0) % MCV 86.5 (80.0-100.0) fL MCH 28.8 (25.0-34.0) pg MCHC 33.3 (32.0-36.0) g/dL RDW Std Deviation 43.5 (36.4-46.3) fL RDW Coeff of Elaine 13.7 (11.5-14.5) % Plt Count 182 (130-400) K/uL MPV 9.8 (9.4-12.4) fL Immature Gran % (Auto) 0.5 % Neut % (Auto) 86.2 % Lymph % (Auto) 3.3 % [place] % (Auto) 9.3 % Eos % (Auto) 0.3 % Baso % (Auto) 0.4 % Neut # (Auto) 9.67 H (1.40-6.50) K/uL Lymph # (Auto) 0.37 L (1.20-3.40) K/uL [place] # (Auto) 1.04 H (0.11-0.59) K/uL Eos # (Auto) 0.03 (0.00-0.50) K/uL Baso # (Auto) 0.04 (0.00-0.20) K/uL Immature Gran # (Auto) 0.06 (0.01-0.20) K/uL PT 11.1 (9.0-12.0) Seconds INR 1.0 (0.9-1.1) Sodium 134 L (136-145) mmol/L Potassium 4.2 (3.5-5.1) mmol/L Chloride 100 (98-107) mmol/L Carbon Dioxide 23 (21-32) mmol/L Anion Gap 11 (3-11) BUN 13 (6-23) mg/dl Creatinine 1.05 (0.6-1.4) mg/dl Est Cr Clr Drug Dosing 66.3 ml/min eGFR 75.42 BUN/Creatinine Ratio 12.4 (10-20) Glucose 166 H (70-99(Fasting)) mg/dl Lactate 1.8 (0.4-2.0) mmol/L Calcium 9.4 (8.6-10.3) mg/dl Total Bilirubin 0.5 (0.2-1.0) mg/dl AST 15 (13-39) U/L ALT 13 (7-52) U/L Alkaline Phosphatase 66 (34-104) U/L Troponin I High Sens 4.3 (0-20) pg/ml B-Natriuretic Peptide 64 (0-100) pg/ml Total Protein 6.9 (6.0-8.3) gm/dl Albumin 3.8 (3.4-5.0) gm/dl Globulin 3.1 (2.5-4.0) gm/dl Albumin/Globulin Ratio 1.2 (0.9-2) Procalcitonin 0.18 (0-0.5) ng/ml TSH 1.163 (0.300-4.500) uIu/ml Urine Color Urine Appearance (Clear) Urine pH (4.5-7.5) Ur Specific [place] (1.000-1.030) Urine Protein (Negative) Urine Glucose (UA) (Negative) Urine Ketones (Negative) Urine Blood (Negative) Urine Nitrite (Negative) Urine Bilirubin (Negative) Urine Urobilinogen (Negative) Ur Leukocyte Esterase (Negative) Urine WBC (Auto) (0-5) /hpf Urine RBC (Auto) (0-2) /hpf U Hyaline Cast (Auto) (0-2) /lpf U Epithel Cells (Auto) (0-2) /hpf Urine Bacteria (Auto) (None Seen) Urine Comment Adenovirus (PCR) Not Detected (NotDetected) B. pertussis DNA (PCR) Not Detected (NotDetected) B.parapertussis DNA PCR Not Detected (NotDetected) C. pneumoniae DNA (PCR) Not Detected (NotDetected) Coronavirus OC43 (PCR) Not Detected (NotDetected) Coronavirus HKU1 (PCR) Not Detected (NotDetected) Coronavirus 229E (PCR) Not Detected (NotDetected) SARS-CoV-2 (PCR) Not Detected (NotDetected) Coronavirus NL63 (PCR) Not Detected (NotDetected) Human Metapneumovir PCR Not Detected (NotDetected) Influenza Type A (PCR) Not Detected (NotDetected) Influenza Type B (PCR) Not Detected (NotDetected) M. pneumoniae (PCR) Not Detected (NotDetected) Parainfluenza 1 (PCR) Not Detected (NotDetected) Parainfluenza 2 (PCR) Not Detected (NotDetected) Parainfluenza 3 (PCR) Not Detected (NotDetected) Parainfluenza 4 (PCR) Not Detected (NotDetected) RSV (PCR) Not Detected (NotDetected) Entero/Rhino (PCR) Not Detected (NotDetected) 01/13/25 Range/Units 23:16 WBC (4.8-10.8) K/ul RBC (4.70-6.10) M/uL Hgb (14.0-18.0) g/dl Hct (42.0-52.0) % MCV (80.0-100.0) fL MCH (25.0-34.0) pg MCHC (32.0-36.0) g/dL RDW Std Deviation (36.4-46.3) fL RDW Coeff of Elaine (11.5-14.5) % Plt Count (130-400) K/uL MPV (9.4-12.4) fL Immature Gran % (Auto) % Neut % (Auto) % Lymph % (Auto) % [place] % (Auto) % Eos % (Auto) % Baso % (Auto) % Neut # (Auto) (1.40-6.50) K/uL Lymph # (Auto) (1.20-3.40) K/uL [place] # (Auto) (0.11-0.59) K/uL Eos # (Auto) (0.00-0.50) K/uL Baso # (Auto) (0.00-0.20) K/uL Immature Gran # (Auto) (0.01-0.20) K/uL PT (9.0-12.0) Seconds INR (0.9-1.1) Sodium (136-145) mmol/L Potassium (3.5-5.1) mmol/L Chloride (98-107) mmol/L Carbon Dioxide (21-32) mmol/L Anion Gap (3-11) BUN (6-23) mg/dl Creatinine (0.6-1.4) mg/dl Est Cr Clr Drug Dosing ml/min eGFR BUN/Creatinine Ratio (10-20) Glucose (70-99(Fasting)) mg/dl Lactate (0.4-2.0) mmol/L Calcium (8.6-10.3) mg/dl Total Bilirubin (0.2-1.0) mg/dl AST (13-39) U/L ALT (7-52) U/L Alkaline Phosphatase (34-104) U/L Troponin I High Sens (0-20) pg/ml B-Natriuretic Peptide (0-100) pg/ml Total Protein (6.0-8.3) gm/dl Albumin (3.4-5.0) gm/dl Globulin (2.5-4.0) gm/dl Albumin/Globulin Ratio (0.9-2) Procalcitonin (0-0.5) ng/ml TSH (0.300-4.500) uIu/ml Urine Color Yellow Urine Appearance Clear (Clear) Urine pH 5.5 (4.5-7.5) Ur Specific [place] 1.022 (1.000-1.030) Urine Protein Negative (Negative) Urine Glucose (UA) 3+ H (Negative) Urine Ketones Trace H (Negative) Urine Blood Trace H (Negative) Urine Nitrite Negative (Negative) Urine Bilirubin Negative (Negative) Urine Urobilinogen Negative (Negative) Ur Leukocyte Esterase Negative (Negative) Urine WBC (Auto) 0-5 (0-5) /hpf Urine RBC (Auto) 0-2 (0-2) /hpf U Hyaline Cast (Auto) 0-2 (0-2) /lpf U Epithel Cells (Auto) 0-2 (0-2) /hpf Urine Bacteria (Auto) 4+ H (None Seen) Urine Comment Adenovirus (PCR) (NotDetected) B. pertussis DNA (PCR) (NotDetected) B.parapertussis DNA PCR (NotDetected) C. pneumoniae DNA (PCR) (NotDetected) Coronavirus OC43 (PCR) (NotDetected) Coronavirus HKU1 (PCR) (NotDetected) Coronavirus 229E (PCR) (NotDetected) SARS-CoV-2 (PCR) (NotDetected) Coronavirus NL63 (PCR) (NotDetected) Human Metapneumovir PCR (NotDetected) Influenza Type A (PCR) (NotDetected) Influenza Type B (PCR) (NotDetected) M. pneumoniae (PCR) (NotDetected) Parainfluenza 1 (PCR) (NotDetected) Parainfluenza 2 (PCR) (NotDetected) Parainfluenza 3 (PCR) (NotDetected) Parainfluenza 4 (PCR) (NotDetected) RSV (PCR) (NotDetected) Entero/Rhino (PCR) (NotDetected) Administered Medications Discontinued Medications Ioversol (Optiray 320 125ml) 119 ml IV ONCE ONE Stop: 01/13/25 22:42 Last Admin: 01/13/25 22:42 Dose: 119 ml Documented By: IFEOMA Imaging Data Radiologist's Impression: Chest X-Ray 01/13/25 20:25 Exam(s): XR CXR 1 VIEW EXAM: XR Chest, 1 View CLINICAL HISTORY: Reason for exam: weakness. TECHNIQUE: Frontal view of the chest. COMPARISON: 03/27/2024 FINDINGS: Lungs: Unremarkable. No consolidation. Pleural space: Unremarkable. No pneumothorax. Heart: See below. Mediastinum: Unremarkable. Normal mediastinal contour. Bones/joints: There are multiple sternal wires. The cardiac silhouette is nonenlarged. Previous left shoulder arthroplasty, unchanged. No acute fracture. Upper abdomen: Unremarkable as visualized. No pneumoperitoneum under the diaphragm. IMPRESSION: No acute cardiopulmonary process is identified. Electronically signed by: Thomas Acevedo MD 01/13/25 22:[address] 01/13/25 22:15 Exam(s): CT HEAD Without Contrast EXAM: CT Head Without Intravenous Contrast CLINICAL HISTORY: Reason for exam: dizzy, weak. TECHNIQUE: Axial computed tomography images of the head/brain without intravenous contrast. CTDI is 37.87 mGy and DLP is 1321.98 mGy-cm. Automated exposure control was utilized for the study. A dose lowering technique was utilized adhering to the principles of ALARA. COMPARISON: No relevant prior studies available. FINDINGS: Brain: Mild cerebral atrophy and periventricular white matter low density consistent with chronic small vessel disease and/or senescent changes no acute large vessel infarct or intracranial hemorrhage is seen. Ventricles: Slightly prominent. No mass or hemorrhage Bones/joints: Unremarkable. No acute fracture. Soft tissues: Unremarkable. Sinuses: Unremarkable as visualized. No acute sinusitis. Mastoid air cells: Unremarkable as visualized. No mastoid effusion. IMPRESSION: Mild cerebral atrophy and periventricular white matter low density consistent with chronic small vessel disease and/or senescent changes no acute large vessel infarct or intracranial hemorrhage is seen. Electronically signed by: Thmoas Acevedo MD 01/13/25 23:02 PM Chest CTA 01/13/25 22:35 Exam(s): CTA CHEST IV Amt: 119CC OPTI 320 EXAM: CT Angiography Chest With Intravenous Contrast CLINICAL HISTORY: Reason for exam: PE. TECHNIQUE: Axial computed tomographic angiography images of the chest with intravenous contrast. CTDI is 37.87 mGy and DLP is 1321.98 mGy-cm. Automated exposure control was utilized for the study. A dose lowering technique was utilized adhering to the principles of ALARA. MIP reconstructed images were created and reviewed. COMPARISON: 05/10/2024 FINDINGS: Pulmonary arteries: The pulmonary arterial tree is adequately opacified with contrast. No pulmonary embolism is identified. Aorta: The aortic arch is mildly calcified but nondilated. There is no aneurysm or dissection. Lungs: Small amount of atelectasis in the dependent portion of both lung bases. The lungs are otherwise clear. No mass. Pleural space: Unremarkable. No significant effusion. No pneumothorax. Heart: Previous sternotomy and CABG. The heart is borderline enlarged. Severe coronary calcification is present. No pericardial effusion. No evidence of RV dysfunction. Bones/joints: Streak artifact from left shoulder arthroplasty. This diffuse osteopenia and mild degenerative changes of the right shoulder as well as throughout the thoracic spine. No acute fracture or destructive bone lesion is seen. No dislocation. Soft tissues: Unremarkable. Lymph nodes: Unremarkable. No enlarged lymph nodes. IMPRESSION: 1. The aortic arch is mildly calcified but nondilated. There is no aneurysm or dissection. 2. The pulmonary arterial tree is adequately opacified with contrast. No pulmonary embolism is identified. 3. Previous sternotomy and CABG. The heart is borderline enlarged. Severe coronary calcification is present. No pericardial effusion. 4. Small amount of atelectasis in the dependent portion of both lung bases. The lungs are otherwise clear. Electronically signed by: Thomas Acevedo MD 01/13/25 23:05 PM Discharge Plan Visit Data Chief Complaint: Weakness Stated Complaint: Weakness, Fever, Chest Discomfort ED Provider: Ramses Carmona Discharge Problem: Hypoxia Patient Disposition: Admitted As Inpatient Condition: Fair Forms Stand Alone Forms: My [facility] Prescriptions Prescriptions: No Action metoprolol succinate 50 mg tablet extended release 24 hr 50 mg PO QAM clopidogrel 75 mg tablet 75 mg PO QAM triamcinolone acetonide 0.1 % Cream 1 applic TOPICAL DIRECTED PRN (Reason: NEEDED.) Rx Instructions: APPLY BID, 3 X WEEK NEEDED. acetaminophen [Tylenol Extended Release] 650 mg Tablet Extended Release 650 mg PO Q8H PRN (Reason: Pain) Ozempic 2 mg/dose (8 mg/3 mL) pen injector 2 mg SUBCUT WK Rx Instructions: MONDAYS atorvastatin 40 mg tablet 40 mg PO QAM metformin 1,000 mg tablet 1,000 mg PO BIDM gabapentin 300 mg capsule 600 mg PO AMHS famotidine 10 mg tablet 10 mg PO QAM Jardiance 25 mg tablet 25 mg PO QAM aspirin [Aspirin Low-Strength] 81 mg Tablet,Delayed Release (Dr/Ec) 81 mg PO QAM One A Day Men Complete 240-25-300 mcg Tablet 1 tab PO QAM citalopram 20 mg tablet 20 mg PO HS Referrals Referrals: Rolando Schultz MD [Outside Practitioners] -
[2025-01-13 20:53] LABS: Alanine Aminotransferase 13.0 U/L (7-52); Albumin Globulin Ratio 1.2 (0.9-2); Alkaline Phosphatase 66.0 U/L (34-104); Anion Gap 11.0 (3-11); Bilirubin,Total 0.5 mg/dl (0.2-1.0); Blood Urea Nitrogen 13.0 mg/dl (6-23); Calcium 9.4 mg/dl (8.6-10.3); Carbon Dioxide 23.0 mmol/L (21-32); Chloride 100.0 mmol/L (98-107); Creatinine Clr Calc Pharmacy 66.3 ml/min; Globulin 3.1 gm/dl (2.5-4.0); Glucose 166.0 mg/dl (70-99(Fasting)); Potassium 4.2 mmol/L (3.5-5.1); Sodium 134.0 mmol/L (136-145); Total Protein 6.9 gm/dl (6.0-8.3)
[2025-01-13 21:08] LABS: INR 1.0 (0.9-1.1); Prothrombin Time 11.1 Seconds (9.0-12.0); Thyroid Stimulating Hormone 1.163 uIu/ml (0.300-4.500)
--- NOTE | 2025-01-13 22:07 | XRay Report ---
Exam(s): XR CXR 1 VIEW EXAM: XR Chest, 1 View CLINICAL HISTORY: Reason for exam: weakness. TECHNIQUE: Frontal view of the chest. COMPARISON: 03/27/2024 FINDINGS: Lungs: Unremarkable. No consolidation. Pleural space: Unremarkable. No pneumothorax. Heart: See below. Mediastinum: Unremarkable. Normal mediastinal contour. Bones/joints: There are multiple sternal wires. The cardiac silhouette is nonenlarged. Previous left shoulder arthroplasty, unchanged. No acute fracture. Upper abdomen: Unremarkable as visualized. No pneumoperitoneum under the diaphragm. IMPRESSION: No acute cardiopulmonary process is identified. Electronically signed by: Thomas Acevedo MD 01/13/25 22:06 PM
[2025-01-13 22:16] LABS: Chlamydia pneumoniae PCR Not Detected (NotDetected); Coronavirus 229E PCR Not Detected (NotDetected); Coronavirus CoV-2 (COVID19)PCR Not Detected (NotDetected); Coronavirus HKU1 PCR Not Detected (NotDetected); Coronavirus NL63 PCR Not Detected (NotDetected); Coronavirus OC43PCR Not Detected (NotDetected); Human Metapneumovirus PCR Not Detected (NotDetected); Parainfluenza Virus 1 PCR Not Detected (NotDetected); Parainfluenza Virus 2 PCR Not Detected (NotDetected); Parainfluenza Virus 3 PCR Not Detected (NotDetected); Parainfluenza Virus 4 PCR Not Detected (NotDetected); Respiratory Syncytial VirusPCR Not Detected (NotDetected); Rhinovirus/Enterovirus PCR Not Detected (NotDetected)
[2025-01-13] MEDS: OPTIRAY 320 125ml IV ONE (22:42)
--- NOTE | 2025-01-13 23:03 | CT Scan Report ---
Exam(s): CT HEAD Without Contrast EXAM: CT Head Without Intravenous Contrast CLINICAL HISTORY: Reason for exam: dizzy, weak. TECHNIQUE: Axial computed tomography images of the head/brain without intravenous contrast. CTDI is 37.87 mGy and DLP is 1321.98 mGy-cm. Automated exposure control was utilized for the study. A dose lowering technique was utilized adhering to the principles of ALARA. COMPARISON: No relevant prior studies available. FINDINGS: Brain: Mild cerebral atrophy and periventricular white matter low density consistent with chronic small vessel disease and/or senescent changes no acute large vessel infarct or intracranial hemorrhage is seen. Ventricles: Slightly prominent. No mass or hemorrhage Bones/joints: Unremarkable. No acute fracture. Soft tissues: Unremarkable. Sinuses: Unremarkable as visualized. No acute sinusitis. Mastoid air cells: Unremarkable as visualized. No mastoid effusion. IMPRESSION: Mild cerebral atrophy and periventricular white matter low density consistent with chronic small vessel disease and/or senescent changes no acute large vessel infarct or intracranial hemorrhage is seen. Electronically signed by: Thomas Acevedo MD 01/13/25 23:02 PM
--- NOTE | 2025-01-13 23:05 | CT Scan Report ---
Exam(s): CTA CHEST IV Amt: 119CC OPTI 320 EXAM: CT Angiography Chest With Intravenous Contrast CLINICAL HISTORY: Reason for exam: PE. TECHNIQUE: Axial computed tomographic angiography images of the chest with intravenous contrast. CTDI is 37.87 mGy and DLP is 1321.98 mGy-cm. Automated exposure control was utilized for the study. A dose lowering technique was utilized adhering to the principles of ALARA. MIP reconstructed images were created and reviewed. COMPARISON: 05/10/2024 FINDINGS: Pulmonary arteries: The pulmonary arterial tree is adequately opacified with contrast. No pulmonary embolism is identified. Aorta: The aortic arch is mildly calcified but nondilated. There is no aneurysm or dissection. Lungs: Small amount of atelectasis in the dependent portion of both lung bases. The lungs are otherwise clear. No mass. Pleural space: Unremarkable. No significant effusion. No pneumothorax. Heart: Previous sternotomy and CABG. The heart is borderline enlarged. Severe coronary calcification is present. No pericardial effusion. No evidence of RV dysfunction. Bones/joints: Streak artifact from left shoulder arthroplasty. This diffuse osteopenia and mild degenerative changes of the right shoulder as well as throughout the thoracic spine. No acute fracture or destructive bone lesion is seen. No dislocation. Soft tissues: Unremarkable. Lymph nodes: Unremarkable. No enlarged lymph nodes. IMPRESSION: 1. The aortic arch is mildly calcified but nondilated. There is no aneurysm or dissection. 2. The pulmonary arterial tree is adequately opacified with contrast. No pulmonary embolism is identified. 3. Previous sternotomy and CABG. The heart is borderline enlarged. Severe coronary calcification is present. No pericardial effusion. 4. Small amount of atelectasis in the dependent portion of both lung bases. The lungs are otherwise clear. Electronically signed by: Thomas Acevedo MD 01/13/25 23:05 PM
[2025-01-13 23:37] LABS: Appearance Urine Clear (Clear); Bacteria Urine Automated 4+ (None Seen); Cast Urine Automated 0-2 /lpf (0-2); Epithelial Cell Urine Auto 0-2 /hpf (0-2); Glucose Urine UA 3+ (Negative); RBC Urine Automated 0-2 /hpf (0-2); WBC Urine Automated 0-5 /hpf (0-5)
[2025-01-14] MEDS: SODIUM CHLORIDE 0.9% 500 ML IV ONE (00:40)
[2025-01-14] MEDS: 4.5GM X1 IV STA (00:40)
--- NOTE | 2025-01-14 00:52 | History & Physical Report ---
Date of Service January 14, 2025 Assessment & Plan (1) Weakness: Plan: 74-year-old male with past medical history significant for diabetes, dyslipidemia, hypertension, history of CAD status post CABG, benign familial tremor, moderate major depression who lives with his girlfriend comes because of weakness and ambulatory dysfunction and he was hypoxic and hypotensive for the EMS. Currently on 2 L oxygen. Had transient chest pain as per ER. Currently denies any chest pain. No cough. No headache. No back pain. No abdominal pain. He says he always has some pain in the legs. Says he ambulates with a cane. No nausea vomiting. No diarrhea. Says no burning micturition. Blood pressure somewhat soft. Patient having tremors now. Says he is feeling cold. Weakness Hypoxia requiring 2 L oxygen CTA chest unremarkable CT head is okay BNP 64 Procalcitonin negative TSH is okay History of tobacco abuse. No obvious wheezing We will place him on nebs as needed and monitor PT OT when stable Possible UTI Empiric Zosyn for now Follow cultures Gentle fluids History of CAD status post CABG On aspirin, Plavix, metoprolol succinate and statin Transient chest pain Currently asymptomatic EKG no acute findings Initial troponin negative Will follow serial enzymes Depression On citalopram Diabetes Hold home p.o. medications and semaglutide Sliding scale Will monitor Follow HbA1c levels GERD On famotidine DVT prophylaxis Heparin subcu Disposition Med/telemetry Full code. History of Present Illness Chief Complaint: Weakness Primary Care Provider: Kayla Reich PA-C 74-year-old male with past medical history significant for diabetes, dyslipidemia, hypertension, history of CAD status post CABG, benign familial tremor, moderate major depression who lives with his girlfriend comes because of weakness and ambulatory dysfunction and he was hypoxic and hypotensive for the EMS. Currently on 2 L oxygen. Had transient chest pain as per ER. Currently denies any chest pain. No cough. No headache. No back pain. No abdominal pain. He says he always has some pain in the legs. Says he ambulates with a cane. No nausea vomiting. No diarrhea. Says no burning micturition. Blood pressure somewhat soft. Patient having tremors now. Says he is feeling cold. Past medical history. As mentioned above. Past surgical history. Right shoulder arthroscopy. CABG. Colonoscopy dental surgery. Insertion of intra-aortic balloon assist device. Repair of right biceps tendon. Social history. Quit smoking in 2000. Smoked 1 pack a day for 33 years. No alcohol use. No drug use. Family history. Sister has COPD. Brother had cancer. Brother had MT. Allergies Allergy/AdvReac Type Severity Reaction Status Date / Time No Known Allergies Allergy Verified 01/13/25 21:57 Home Medications Medication Instructions Recorded Confirmed Type aspirin 81 mg tablet,delayed 81 mg PO QAM 03/27/24 01/13/25 History release atorvastatin 40 mg tablet 40 mg PO QAM 03/27/24 01/13/25 History citalopram 20 mg tablet 20 mg PO HS 03/27/24 01/13/25 History empagliflozin 25 mg tablet 25 mg PO QAM 03/27/24 01/13/25 History (Jardiance) famotidine 10 mg tablet 10 mg PO QAM 03/27/24 01/13/25 History gabapentin 300 mg capsule 600 mg PO AMHS 03/27/24 01/13/25 History metformin 1,000 mg tablet 1,000 mg PO BIDM 03/27/24 01/13/25 History multivit,calcium,min-folic acid 1 tab PO QAM 03/27/24 01/13/25 History 240 mcg-D3 25 mcg-lycop 300 mcg tablet (One A Day Men Complete) acetaminophen 650 mg 650 mg PO Q8H PRN Pain 01/13/25 01/13/25 History tablet,extended release clopidogrel 75 mg tablet 75 mg PO QAM 01/13/25 01/13/25 History metoprolol succinate 50 mg 50 mg PO QAM 01/13/25 01/13/25 History tablet,extended release 24 hr semaglutide 2 mg/dose (8 mg/3 mL) 2 mg subcut WK 01/13/25 01/13/25 History subcutaneous pen injector (Ozempic) triamcinolone acetonide 0.1 % 1 applic topical DIRECTED PRN 01/13/25 01/13/25 History topical cream NEEDED. Past Med/Surg History Problem List (Updated 01/14/25 @ 00:58 by Kolby Hahn MD) Weakness Hypoxia (Acute) NSTEMI (non-ST elevated myocardial infarction) Abnormal EKG (Acute) Elevated troponin I level (Acute) Chest pain, exertional (Acute) AC joint arthropathy Hypertension (Chronic) Hypercholesteremia (Chronic) Rotator cuff arthropathy (Acute 04/22/14) Cellulitis of right lower extremity DM type 2 (diabetes mellitus, type 2) (Chronic) Dyslipidemia (Chronic) H/O colonoscopy (Chronic) History of dental surgery (Chronic) S/P shoulder replacement (Chronic) Severe sepsis Medical History (Updated 01/14/25 @ 00:58 by Kolby Hahn MD) Dyslipidemia Family History Other Cancer Diabetes Heart disease Hypertension Social History Smoking Status: Never smoker Tobacco Type: Cigarettes and Smokeless Tobacco (Dip or Chew) Second Hand Exposure: No; Do You Dip or Chew Tobacco: Yes (Quit with surgery); Hx Alcohol Use: No Hx Substance Use: No Preferred Language: Uzbek Communication Ability: Effective Crane Rigger Required: No Beliefs That Will Affect Care: None marital status: Current Living Situation: Significant Other Current Living Situation Comment: kelsy ribeiro girlfriend current occupational status: unemployed current occupation: Retired Feels Safe at Home: Yes Assistive Devices: None Review of Systems Review of Systems: All systems reviewed & are unremarkable except as noted in HPI & below Physical Exam Physical Exam: General- Not in distress Head- atraumatic Eyes- PERRL. ENT- oropharynx clear Neck- supple, no JVD. Lungs- clear to auscultation no wheezing or crackles Heart- regular rhythm; no murmur, no gallop. Abdomen- normal bowel sounds, soft, nontender, no distension Extremities- no pretibial edema, no erythema seen Neuro- alert, oriented PERRL, no facial palsy; no dysarthria; moves extremities Results & Data Results & Data Vital Signs (Past 12 Hours) Vital Signs Temp Pulse Pulse Resp BP BP Pulse Ox 01/14/25 00:00 100 H 20 113/52 L 97 01/13/25 23:00 86 22 99/53 L 96 01/13/25 22:54 86 22 108/61 100 01/13/25 22:24 88 22 94/57 L 93 01/13/25 22:09 85 22 81/44 L 95 01/13/25 21:33 88 27 H 96 08/28/25 21:05 88 01/13/25 20:25 94 01/13/25 20:15 94 H 18 113/64 93 01/13/25 20:08 89 L 01/13/25 20:08 37.2 C 94 H 18 113/64 89 L O2 Del Method O2 Flow Rate 01/14/25 00:00 Nasal Cannula 2 01/13/25 23:00 Nasal Cannula 2 01/13/25 22:54 Nasal Cannula 2 01/13/25 22:24 Nasal Cannula 2 01/13/25 22:09 Nasal Cannula 2 01/13/25 21:33 Nasal Cannula 2 01/13/25 21:05 01/13/25 20:25 Nasal Cannula 2 01/13/25 20:15 Nasal Cannula 2 01/13/25 20:08 Room Air 01/13/25 20:08 Room Air Diagnostic Findings Laboratory Results WBC 11.21 K/ul (4.8-10.8) H 01/13/25 20:15 RBC 4.89 M/uL (4.70-6.10) 01/13/25 20:15 Hgb 14.1 g/dl (14.0-18.0) 01/13/25 20:15 Hct 42.3 % (42.0-52.0) 01/13/25 20:15 MCV 86.5 fL (80.0-100.0) 01/13/25 20:15 MCH 28.8 pg (25.0-34.0) 01/13/25 20:15 MCHC 33.3 g/dL (32.0-36.0) 01/13/25 20:15 RDW Std Deviation 43.5 fL (36.4-46.3) 01/13/25 20:15 RDW Coeff of Elaine 13.7 % (11.5-14.5) 01/13/25 20:15 Plt Count 182 K/uL (130-400) 01/13/25 20:15 MPV 9.8 fL (9.4-12.4) 01/13/25 20:15 Immature Gran % (Auto) 0.5 % 01/13/25 20:15 Neut % (Auto) 86.2 % 01/13/25 20:15 Lymph % (Auto) 3.3 % 01/13/25 20:15 Rowan % (Auto) 9.3 % 01/13/25 20:15 Eos % (Auto) 0.3 % 01/13/25 20:15 Baso % (Auto) 0.4 % 01/13/25 20:15 Neut # (Auto) 9.67 K/uL (1.40-6.50) H 01/13/25 20:15 Lymph # (Auto) 0.37 K/uL (1.20-3.40) L 01/13/25 20:15 Rowan # (Auto) 1.04 K/uL (0.11-0.59) H 01/13/25 20:15 Eos # (Auto) 0.03 K/uL (0.00-0.50) 01/13/25 20:15 Baso # (Auto) 0.04 K/uL (0.00-0.20) 01/13/25 20:15 Immature Gran # (Auto) 0.06 K/uL (0.01-0.20) 01/13/25 20:15 PT 11.1 Seconds (9.0-12.0) 01/13/25 20:15 INR 1.0 (0.9-1.1) 01/13/25 20:15 Sodium 134 mmol/L (136-145) L 01/13/25 20:15 Potassium 4.2 mmol/L (3.5-5.1) 01/13/25 20:15 Chloride 100 mmol/L (98-107) 01/13/25 20:15 Carbon Dioxide 23 mmol/L (21-32) 01/13/25 20:15 Anion Gap 11 (3-11) 01/13/25 20:15 BUN 13 mg/dl (6-23) 01/13/25 20:15 Creatinine 1.05 mg/dl (0.6-1.4) 01/13/25 20:15 Est Cr Clr Drug Dosing 66.3 ml/min 01/13/25 20:15 eGFR 75.42 01/13/25 20:15 BUN/Creatinine Ratio 12.4 (10-20) 01/13/25 20:15 Glucose 166 mg/dl (70-99(Fasting)) H 01/13/25 20:15 Lactate 1.8 mmol/L (0.4-2.0) 01/13/25 20:47 Calcium 9.4 mg/dl (8.6-10.3) 01/13/25 20:15 Total Bilirubin 0.5 mg/dl (0.2-1.0) 01/13/25 20:15 AST 15 U/L (13-39) 01/13/25 20:15 ALT 13 U/L (7-52) 01/13/25 20:15 Alkaline Phosphatase 66 U/L (34-104) 01/13/25 20:15 Troponin I High Sens 4.3 pg/ml (0-20) 01/13/25 20:15 B-Natriuretic Peptide 64 pg/ml (0-100) 01/13/25 20:47 Total Protein 6.9 gm/dl (6.0-8.3) 01/13/25 20:15 Albumin 3.8 gm/dl (3.4-5.0) 01/13/25 20:15 Globulin 3.1 gm/dl (2.5-4.0) 01/13/25 20:15 Albumin/Globulin Ratio 1.2 (0.9-2) 01/13/25 20:15 Procalcitonin 0.18 ng/ml (0-0.5) 01/13/25 20:15 TSH 1.163 uIu/ml (0.300-4.500) 01/13/25 20:15 Urine Color Yellow 01/13/25 23:16 Urine Appearance Clear (Clear) 01/13/25 23:16 Urine pH 5.5 (4.5-7.5) 01/13/25 23:16 Ur Specific [place] 1.022 (1.000-1.030) 01/13/25 23:16 Urine Protein Negative (Negative) 01/13/25 23:16 Urine Glucose (UA) 3+ (Negative) H 01/13/25 23:16 Urine Ketones Trace (Negative) H 01/13/25 23:16 Urine Blood Trace (Negative) H 01/13/25 23:16 Urine Nitrite Negative (Negative) 01/13/25 23:16 Urine Bilirubin Negative (Negative) 01/13/25 23:16 Urine Urobilinogen Negative (Negative) 01/13/25 23:16 Ur Leukocyte Esterase Negative (Negative) 01/13/25 23:16 Urine WBC (Auto) 0-5 /hpf (0-5) 01/13/25 23:16 Urine RBC (Auto) 0-2 /hpf (0-2) 01/13/25 23:16 U Hyaline Cast (Auto) 0-2 /lpf (0-2) 01/13/25 23:16 U Epithel Cells (Auto) 0-2 /hpf (0-2) 01/13/25 23:16 Urine Bacteria (Auto) 4+ (None Seen) H 01/13/25 23:16 Urine Comment 01/13/25 23:16 Adenovirus (PCR) Not Detected (NotDetected) 01/13/25 21:11 B. pertussis DNA (PCR) Not Detected (NotDetected) 01/13/25 21:11 B.parapertussis DNA PCR Not Detected (NotDetected) 01/13/25 21:11 C. pneumoniae DNA (PCR) Not Detected (NotDetected) 01/13/25 21:11 Coronavirus OC43 (PCR) Not Detected (NotDetected) 01/13/25 21:11 Coronavirus HKU1 (PCR) Not Detected (NotDetected) 01/13/25 21:11 Coronavirus 229E (PCR) Not Detected (NotDetected) 01/13/25 21:11 SARS-CoV-2 (PCR) Not Detected (NotDetected) 01/13/25 21:11 Coronavirus NL63 (PCR) Not Detected (NotDetected) 01/13/25 21:11 Human Metapneumovir PCR Not Detected (NotDetected) 01/13/25 21:11 Influenza Type A (PCR) Not Detected (NotDetected) 01/13/25 21:11 Influenza Type B (PCR) Not Detected (NotDetected) 01/13/25 21:11 M. pneumoniae (PCR) Not Detected (NotDetected) 01/13/25 21:11 Parainfluenza 1 (PCR) Not Detected (NotDetected) 01/13/25 21:11 Parainfluenza 2 (PCR) Not Detected (NotDetected) 01/13/25 21:11 Parainfluenza 3 (PCR) Not Detected (NotDetected) 01/13/25 21:11 Parainfluenza 4 (PCR) Not Detected (NotDetected) 01/13/25 21:11 RSV (PCR) Not Detected (NotDetected) 01/13/25 21:11 Entero/Rhino (PCR) Not Detected (NotDetected) 01/13/25 21:11 Impressions Chest X-Ray 01/13/25 20:25 Exam(s): XR CXR 1 VIEW EXAM: XR Chest, 1 View CLINICAL HISTORY: Reason for exam: weakness. TECHNIQUE: Frontal view of the chest. COMPARISON: 03/27/2024 FINDINGS: Lungs: Unremarkable. No consolidation. Pleural space: Unremarkable. No pneumothorax. Heart: See below. Mediastinum: Unremarkable. Normal mediastinal contour. Bones/joints: There are multiple sternal wires. The cardiac silhouette is nonenlarged. Previous left shoulder arthroplasty, unchanged. No acute fracture. Upper abdomen: Unremarkable as visualized. No pneumoperitoneum under the diaphragm. IMPRESSION: No acute cardiopulmonary process is identified. Electronically signed by: Thomas Acevedo MD 01/13/25 22:[address] 01/13/25 22:15 Exam(s): CT HEAD Without Contrast EXAM: CT Head Without Intravenous Contrast CLINICAL HISTORY: Reason for exam: dizzy, weak. TECHNIQUE: Axial computed tomography images of the head/brain without intravenous contrast. CTDI is 37.87 mGy and DLP is 1321.98 mGy-cm. Automated exposure control was utilized for the study. A dose lowering technique was utilized adhering to the principles of ALARA. COMPARISON: No relevant prior studies available. FINDINGS: Brain: Mild cerebral atrophy and periventricular white matter low density consistent with chronic small vessel disease and/or senescent changes no acute large vessel infarct or intracranial hemorrhage is seen. Ventricles: Slightly prominent. No mass or hemorrhage Bones/joints: Unremarkable. No acute fracture. Soft tissues: Unremarkable. Sinuses: Unremarkable as visualized. No acute sinusitis. Mastoid air cells: Unremarkable as visualized. No mastoid effusion. IMPRESSION: Mild cerebral atrophy and periventricular white matter low density consistent with chronic small vessel disease and/or senescent changes no acute large vessel infarct or intracranial hemorrhage is seen. Electronically signed by: Thomas Acevedo MD 01/13/25 23:02 PM Chest CTA 01/13/25 22:35 Exam(s): CTA CHEST IV Amt: 119CC OPTI 320 EXAM: CT Angiography Chest With Intravenous Contrast CLINICAL HISTORY: Reason for exam: PE. TECHNIQUE: Axial computed tomographic angiography images of the chest with intravenous contrast. CTDI is 37.87 mGy and DLP is 1321.98 mGy-cm. Automated exposure control was utilized for the study. A dose lowering technique was utilized adhering to the principles of ALARA. MIP reconstructed images were created and reviewed. COMPARISON: 05/10/2024 FINDINGS: Pulmonary arteries: The pulmonary arterial tree is adequately opacified with contrast. No pulmonary embolism is identified. Aorta: The aortic arch is mildly calcified but nondilated. There is no aneurysm or dissection. Lungs: Small amount of atelectasis in the dependent portion of both lung bases. The lungs are otherwise clear. No mass. Pleural space: Unremarkable. No significant effusion. No pneumothorax. Heart: Previous sternotomy and CABG. The heart is borderline enlarged. Severe coronary calcification is present. No pericardial effusion. No evidence of RV dysfunction. Bones/joints: Streak artifact from left shoulder arthroplasty. This diffuse osteopenia and mild degenerative changes of the right shoulder as well as throughout the thoracic spine. No acute fracture or destructive bone lesion is seen. No dislocation. Soft tissues: Unremarkable. Lymph nodes: Unremarkable. No enlarged lymph nodes. IMPRESSION: 1. The aortic arch is mildly calcified but nondilated. There is no aneurysm or dissection. 2. The pulmonary arterial tree is adequately opacified with contrast. No pulmonary embolism is identified. 3. Previous sternotomy and CABG. The heart is borderline enlarged. Severe coronary calcification is present. No pericardial effusion. 4. Small amount of atelectasis in the dependent portion of both lung bases. The lungs are otherwise clear. Electronically signed by: Thomas Acevedo MD 01/13/25 23:05 PM ECG Additional Comments: ECG. Sinus rhythm with first-degree AV block with a rate of 94. Nonspecific ST and T wave abnormalities. No significant change was found. QTc 415. Code Status & VTE Plan VTE Prophylaxis Plan VTE Prophylaxis will be ordered: Yes
[2025-01-14] MEDS ORDERED: LEVALBUTEROL 1.25 MG/3 ML NEB NEB PRN (02:06)
[2025-01-14] MEDS ORDERED: NITROGLYCERIN SL 0.4 MG/TAB TAB SL PRN (02:06)
[2025-01-14] MEDS ORDERED: CARBOHYDRATES FOR HYPOGLYCEMIA PO PRN (02:06)
[2025-01-14] MEDS ORDERED: GLUCAGON FOR INJ 1 MG VIAL SQ PRN (02:06)
[2025-01-14] MEDS ORDERED: DEXTROSE 50% 50 ML SYRINGE IV PRN (02:06)
[2025-01-14] MEDS ORDERED: GLUCOSE 10 TAB/TUBE PO PRN (02:06)
[2025-01-14] MEDS ORDERED: TRIAMCINOLONE ACET 0.1% CR 15 GM TUBE TOP PRN (02:06)
[2025-01-14] MEDS ORDERED: GLUCOSE 40% GEL 15 GM TUBE PO PRN (02:06)
[2025-01-14] MEDS: SODIUM CHLORIDE 0.9% 1,000 ML IV SCH (03:00)
[2025-01-14] MEDS: HEPARIN SOD 5,000 UNIT/0.5 ML VIAL SQ SCH (06:42)
[2025-01-14] MEDS: PIPERACILLIN/TAZOBACTAM 4.5 GM/100 ML BAG IV SCH (06:42)
[2025-01-14 07:39] LABS: Hematocrit (blood only) 39.7 % (42.0-52.0); Hemoglobin 13.1 g/dl (14.0-18.0); Immature Granulocytes # (auto) 0.18 K/uL (0.01-0.20); Immature Granulocytes % (auto) 1.2 %; Mean Corpuscular Hemoglobin 28.7 pg (25.0-34.0); Mean Corpuscular Volume 86.9 fL (80.0-100.0); Platelet Count 169 K/uL (130-400); RDW Standard Deviation 43.8 fL (36.4-46.3); Red Blood Count 4.57 M/uL (4.70-6.10); White Blood Count 14.58 K/ul (4.8-10.8)
[2025-01-14 07:54] LABS: Anion Gap 12.0 (3-11); Blood Urea Nitrogen 14.0 mg/dl (6-23); Calcium 8.8 mg/dl (8.6-10.3); Carbon Dioxide 23.0 mmol/L (21-32); Chloride 100.0 mmol/L (98-107); Creatinine Clr Calc Pharmacy 58.0 ml/min; Glucose 202.0 mg/dl (70-99(Fasting)); Magnesium 1.4 mg/dl (1.7-2.4); Potassium 3.5 mmol/L (3.5-5.1); Sodium 135.0 mmol/L (136-145)
[2025-01-14 07:57] LABS: Hemoglobin A1C 7.5 % (4.5-5.6)
[2025-01-14] MEDS: INSULIN ASPART PER UNIT CHARGE SC SCH (08:42)
[2025-01-14] MEDS: CLOPIDOGREL BISULFATE 75 MG TAB PO SCH (09:10)
[2025-01-14] MEDS: FAMOTIDINE 10 MG TABLET PO SCH (09:10)
[2025-01-14] MEDS: ASPIRIN 81 MG ECTAB PO SCH (09:10)
[2025-01-14] MEDS: GABAPENTIN 300 MG CAP PO SCH (09:10)
[2025-01-14] MEDS: CEROVITE ADV FORMULA TAB PO SCH (09:10)
[2025-01-14] MEDS: METOPROLOL SUCC 50MG EXT REL TAB PO SCH (09:10)
[2025-01-14] MEDS: ATORVASTATIN 40 MG TAB PO SCH (09:10)
--- NOTE | 2025-01-14 14:05 | Communication Note ---
Date of Service: January 14, 2025 Patient seen Currently reports generalized weakness Reviewed labs and imaging Will get PT/OT eval Other plans as detailed in H&P this AM
[2025-01-14 20:13] LABS: A calco-baum cmplx NotReported Not Detected (NotDetected); Bact fragilis Not Reported Not Detected (NotDetected); Blood Culture Id Panel See PCR Comment (NotDetected); C auris Not Reported Not Detected (NotDetected); Calbicans Not Reported Not Detected (NotDetected); Candida glabrata Not Reported Not Detected (NotDetected); Candida krusei Not Reported Not Detected (NotDetected); Cneoformans/gatti Not Reported Not Detected (NotDetected); Cparapsilosis Not Reported Not Detected (NotDetected); Ctropicalis Not Reported Not Detected (NotDetected); E cloacae compx Not Reported Not Detected (NotDetected); Efaecalis Not Reported DETECTED (NotDetected); Efaecium Not Reported Not Detected (NotDetected); Enterobacterales Not Reported Not Detected (NotDetected); Escherichia coli Not Reported Not Detected (NotDetected); H influenzae Not Reported Not Detected (NotDetected); K aerogenes Not Reported Not Detected (NotDetected); Koxytoca Not Reported Not Detected (NotDetected); Kpneumoniae grp Not Reported Not Detected (NotDetected); Lmonocyt Not Reported Not Detected (NotDetected); N meningitidis Not Reported Not Detected (NotDetected); P aeruginosa Not Reported Not Detected (NotDetected); Proteus spp Not Reported Not Detected (NotDetected); Salmonella spp Not Reported Not Detected (NotDetected); Staph lugdunensis Not Reported Not Detected (NotDetected); Staph spp. Not Reported Not Detected (NotDetected); Staphaureus Not Reported Not Detected (NotDetected); Staphepi Not Reported Not Detected (NotDetected); Stenmaltophilia Not Reported Not Detected (NotDetected); Strep agal(GrpB) Not Reported Not Detected (NotDetected); Strep pneum Not Reported Not Detected (NotDetected); Strep pyog (GrpA) Not Reported Not Detected (NotDetected); Strep spp Not Reported Not Detected (NotDetected); VanAB Resistant Gene VRE Not Detected (NotDetected)
[2025-01-14 20:37] LABS: Enterococcus faecalis DETECTED (NotDetected)
--- NOTE | 2025-01-14 21:58 | Electrocardiogram Report ---
Test Reason : Blood Pressure : */* mmHG Vent. Rate : 94 BPM Atrial Rate : 94 BPM P-R Int : 216 ms QRS Dur : 76 ms QT Int : 332 ms P-R-T Axes : 45 53 77 degrees QTcB Int : 415 ms Sinus rhythm with 1st degree A-V block Nonspecific ST and T wave abnormality Abnormal ECG When compared with ECG of 27-Mar-2024 20:15, No significant change was found Confirmed by Francis Ang ([id number]) on 01/14/2025 9:58:31 PM Referred By: REFERRED SELF Confirmed By: Francis Ang
--- NOTE | 2025-01-14 21:59 | Electrocardiogram Report ---
Test Reason : Blood Pressure : */* mmHG Vent. Rate : 99 BPM Atrial Rate : 99 BPM P-R Int : 240 ms QRS Dur : 84 ms QT Int : 344 ms P-R-T Axes : 59 55 73 degrees QTcB Int : 441 ms Sinus rhythm with 1st degree A-V block Nonspecific T wave abnormality Abnormal ECG When compared with ECG of 13-Jan-2025 20:15, No significant change was found Confirmed by Francis Ang ([id number]) on 01/14/2025 9:59:10 PM Referred By: REFERRED SELF Confirmed By: Francis Ang
[2025-01-14] MEDS: CITALOPRAM 20 MG TAB PO SCH (22:06)
[2025-01-15] MEDS: ACETAMINOPHEN 325 MG TAB PO PRN (06:06)
[2025-01-15 06:56] LABS: Hematocrit (blood only) 35.7 % (42.0-52.0); Hemoglobin 11.9 g/dl (14.0-18.0); Mean Corpuscular Hemoglobin 28.9 pg (25.0-34.0); Mean Corpuscular Volume 86.7 fL (80.0-100.0); Platelet Count 165 K/uL (130-400); RDW Standard Deviation 44.7 fL (36.4-46.3); Red Blood Count 4.12 M/uL (4.70-6.10); White Blood Count 9.79 K/ul (4.8-10.8)
[2025-01-15 07:19] LABS: Alanine Aminotransferase 10.0 U/L (7-52); Albumin Globulin Ratio 1.2 (0.9-2); Alkaline Phosphatase 46.0 U/L (34-104); Anion Gap 10.0 (3-11); Bilirubin,Total 0.5 mg/dl (0.2-1.0); Blood Urea Nitrogen 16.0 mg/dl (6-23); Calcium 8.8 mg/dl (8.6-10.3); Carbon Dioxide 22.0 mmol/L (21-32); Chloride 104.0 mmol/L (98-107); Creatinine Clr Calc Pharmacy 63.7 ml/min; Globulin 2.7 gm/dl (2.5-4.0); Glucose 150.0 mg/dl (70-99(Fasting)); Potassium 3.7 mmol/L (3.5-5.1); Sodium 136.0 mmol/L (136-145); Total Protein 6.0 gm/dl (6.0-8.3)
[2025-01-15] MEDS ORDERED: VANCOMYCIN CONSULT ACTIVE PRN (07:50)
[2025-01-15] MEDS: VANCOMYCIN HCL 1,500 MG in SODIUM CHLORIDE 0.9% 500 ML IV ONE (10:38)
--- NOTE | 2025-01-15 11:03 | Hospitalist Progress Note ---
Date of Service January 15, 2025 Assessment & Plan (1) Bacteremia: (2) Weakness: Plan: 74-year-old male with past medical history significant for diabetes, dyslipidemia, hypertension, history of CAD status post CABG, benign familial tremor, moderate major depression who lives with his girlfriend comes because of weakness and ambulatory dysfunction and he was hypoxic and hypotensive for the EMS. Enterococcus bacteremia Enterococcus UTI Urine and Blood culture growing Enterococcus Will follow up final culture results Antibiotics changed to IV vanc for now ID consult once sensitivities result Hypoxia requiring 2 L oxygen CTA chest did not show any acute abnormalities BNP 64 Procalcitonin negative TSH is WNL Wean off oxygen History of CAD status post CABG On aspirin, Plavix, metoprolol succinate and statin Transient chest pain reported on admission Currently asymptomatic EKG no acute findings Trop trend was normal Depression On citalopram Diabetes Hold home p.o. medications and semaglutide Continue Insulin Sliding scale Will monitor HbA1c 7.5 GERD On famotidine DVT prophylaxis-Heparin subcu Full code. I spent a total of 50 minutes coordinating, documenting and providing care for this patient excluding time spent in performance of separately billed services Admission and Anticipated Discharge Date Admission Date: January 14, 2025 Subjective Patient seen and examined Reports generalized weakness is improving Denied other complaints on ROS Physical Exam Constitutional: + well hydrated; no acute distress Eyes: PERRL, conjunctivae normal, anicteric sclerae ENMT: external ear and nose normal, oropharynx normal Respiratory: normal respiratory effort, lungs clear to auscultation Cardiovascular: Rate/Rhythm: regular rate and regular rhythm Gastrointestinal (Abdomen): normal bowel sounds, soft, nontender, no hepatosplenomegaly Musculoskeletal: No pedal edema Neurologic: PERRL, EOMI, accommodation nl, no face palsy, no dysarthria Psychiatric: A+Ox3, euthymic affect Results & Data Results & Data Vital Signs (Past 12 Hours) Vital Signs Temp Pulse Pulse Resp BP Pulse Ox O2 Del Method 01/15/25 08:19 36.8 C 80 16 111/64 96 Nasal Cannula 01/15/25 07:36 77 01/15/25 04:10 36.6 C 71 18 114/67 98 Nasal Cannula 01/15/25 02:31 Nasal Cannula 01/15/25 02:05 36.9 C 79 18 107/63 97 Room Air 01/15/25 02:01 73 01/14/25 23:44 72 14 99/46 L 94 Room Air O2 Flow Rate 01/15/25 08:19 01/15/25 07:36 01/15/25 04:10 2 01/15/25 02:31 2 01/15/25 02:05 01/15/25 02:01 01/14/25 23:44 Laboratory Results Abnormal lab results 01/14/25 01/14/25 01/14/25 Range/Units 01:09 18:19 20:46 RBC (4.70-6.10) M/uL Hgb (14.0-18.0) g/dl Hct (42.0-52.0) % Glucose (70-99(Fasting)) mg/dl POC Glucose 168 H 171 H (70-99) mg/dl Albumin (3.4-5.0) gm/dl Enterococc faecalis PCR DETECTED A (NotDetected) 01/15/25 01/15/25 01/15/25 Range/Units 06:36 08:10 12:19 RBC 4.12 L (4.70-6.10) M/uL Hgb 11.9 L (14.0-18.0) g/dl Hct 35.7 L (42.0-52.0) % Glucose 150 H (70-99(Fasting)) mg/dl POC Glucose 138 H 156 H (70-99) mg/dl Albumin 3.3 L (3.4-5.0) gm/dl Enterococc faecalis PCR (NotDetected)
--- NOTE | 2025-01-15 12:43 | Pharmacy Report ---
Pharmacy PK ABX Note - Date of Service January 15, 2025 - Assessment and Plan Assessment 74 year old M receiving vancomycin for treatment of bacteremia. Blood cultures (+) GPC in chains in 05/22 and E. faecalis in 05/22. Blood biofire (-) VRE resistance genes. Renal function stable Day # 1 of antimicrobial therapy. Plan Vancomycin * Loading dose: 1500 mg IV x 1 * Maintenance dose: 1500 mg IV every 24 hours * Regimen is predicted to achieve target AUC/DEMETRI of 400-600 mg/L.hr * Will obtain a level after ~ 48h of therapy Pharmacy will continue to follow and will adjust dose/frequency as necessary. Thank you. Pharmacy has transitioned to AUC monitoring for vancomycin. AUC/DEMETRI is the preferred PK/PD target and is associated with decreased risk of nephrotoxicity compared to traditional trough targets.
[2025-01-15] MEDS: VANCOMYCIN HCL 1,500 MG in SODIUM CHLORIDE 0.9% 500 ML IV SCH (21:03)
[2025-01-16 07:00] LABS: Hematocrit (blood only) 35.2 % (42.0-52.0); Hemoglobin 11.9 g/dl (14.0-18.0); Mean Corpuscular Hemoglobin 29.3 pg (25.0-34.0); Mean Corpuscular Volume 86.7 fL (80.0-100.0); Platelet Count 160 K/uL (130-400); RDW Standard Deviation 43.5 fL (36.4-46.3); Red Blood Count 4.06 M/uL (4.70-6.10); White Blood Count 5.14 K/ul (4.8-10.8)
[2025-01-16 07:31] LABS: Anion Gap 8.0 (3-11); Blood Urea Nitrogen 15.0 mg/dl (6-23); Calcium 8.5 mg/dl (8.6-10.3); Carbon Dioxide 26.0 mmol/L (21-32); Chloride 103.0 mmol/L (98-107); Creatinine Clr Calc Pharmacy 65.3 ml/min; Glucose 112.0 mg/dl (70-99(Fasting)); Magnesium 1.7 mg/dl (1.7-2.4); Potassium 3.4 mmol/L (3.5-5.1); Sodium 137.0 mmol/L (136-145)
[2025-01-16] MEDS: POTASSIUM CHLORIDE CRTAB 20 MEQ TABCR PO STA (07:53)
--- NOTE | 2025-01-16 09:16 | Hospitalist Progress Note ---
Date of Service January 16, 2025 Assessment & Plan (1) Bacteremia: (2) Weakness: Plan: 74-year-old male with past medical history significant for diabetes, dyslipidemia, hypertension, history of CAD status post CABG, benign familial tremor, moderate major depression who lives with his girlfriend comes because of weakness and ambulatory dysfunction and he was hypoxic and hypotensive for the EMS. Enterococcus bacteremia Enterococcus UTI Urine and Blood culture grew Enterococcus Continue IV vanc ID consult Hypoxia required 2 L oxygen CTA chest did not show any acute abnormalities BNP 64 Procalcitonin negative TSH is WNL Off oxygen this AM History of CAD status post CABG On aspirin, Plavix, metoprolol succinate and statin Transient chest pain reported on admission Currently asymptomatic EKG no acute findings Trop trend was normal Depression On citalopram Diabetes Hold home p.o. medications and semaglutide Continue Insulin Sliding scale HbA1c 7.5 GERD On famotidine DVT prophylaxis-Heparin subcu Full code. I spent a total of 50 minutes coordinating, documenting and providing care for this patient excluding time spent in performance of separately billed services Admission and Anticipated Discharge Date Admission Date: January 14, 2025 Subjective Patient seen and examined Reports feeling better today No new complaints Physical Exam Constitutional: + well hydrated; no acute distress Eyes: PERRL, conjunctivae normal, anicteric sclerae ENMT: external ear and nose normal, oropharynx normal Respiratory: normal respiratory effort, lungs clear to auscultation Cardiovascular: Rate/Rhythm: regular rate and regular rhythm Gastrointestinal (Abdomen): normal bowel sounds, soft, nontender, no hepatosplenomegaly Musculoskeletal: No pedal edema Neurologic: PERRL, EOMI, accommodation nl, no face palsy, no dysarthria Psychiatric: A+Ox3, euthymic affect Results & Data Results & Data Vital Signs (Past 12 Hours) Vital Signs Temp Pulse Pulse Resp BP Pulse Ox O2 Del Method 01/16/25 08:37 37.1 C 78 16 116/70 92 Room Air 01/16/25 03:53 36.7 C 66 18 109/66 92 Room Air 01/15/25 23:16 37.1 C 01/15/25 22:50 38.2 C H 82 18 108/60 92 Room Air 01/15/25 22:28 77 Laboratory Results Abnormal lab results 01/15/25 01/15/25 01/16/25 Range/Units 16:35 20:02 06:18 RBC 4.06 L (4.70-6.10) M/uL Hgb 11.9 L (14.0-18.0) g/dl Hct 35.2 L (42.0-52.0) % Potassium 3.4 L (3.5-5.1) mmol/L Glucose 112 H (70-99(Fasting)) mg/dl POC Glucose 154 H 151 H (70-99) mg/dl Calcium 8.5 L (8.6-10.3) mg/dl 01/16/25 01/16/25 Range/Units 08:17 12:08 RBC (4.70-6.10) M/uL Hgb (14.0-18.0) g/dl Hct (42.0-52.0) % Potassium (3.5-5.1) mmol/L Glucose (70-99(Fasting)) mg/dl POC Glucose 147 H 127 H (70-99) mg/dl Calcium (8.6-10.3) mg/dl
[2025-01-17 09:11] LABS: Hematocrit (blood only) 36.2 % (42.0-52.0); Hemoglobin 12.3 g/dl (14.0-18.0); Mean Corpuscular Hemoglobin 29.4 pg (25.0-34.0); Mean Corpuscular Volume 86.6 fL (80.0-100.0); Platelet Count 180 K/uL (130-400); RDW Standard Deviation 43.8 fL (36.4-46.3); Red Blood Count 4.18 M/uL (4.70-6.10); White Blood Count 5.03 K/ul (4.8-10.8)
[2025-01-17 09:27] LABS: Anion Gap 7.0 (3-11); Blood Urea Nitrogen 12.0 mg/dl (6-23); Calcium 8.7 mg/dl (8.6-10.3); Carbon Dioxide 25.0 mmol/L (21-32); Chloride 103.0 mmol/L (98-107); Creatinine Clr Calc Pharmacy 76.2 ml/min; Glucose 168.0 mg/dl (70-99(Fasting)); Potassium 3.8 mmol/L (3.5-5.1); Sodium 135.0 mmol/L (136-145)
--- NOTE | 2025-01-17 10:54 | Hospitalist Progress Note ---
Date of Service January 17, 2025 Assessment & Plan (1) Bacteremia: (2) Weakness: Plan: 74-year-old male with past medical history significant for diabetes, dyslipidemia, hypertension, history of CAD status post CABG, benign familial tremor, moderate major depression who lives with his girlfriend comes because of weakness and ambulatory dysfunction and he was hypoxic and hypotensive for the EMS. Enterococcus bacteremia Enterococcus UTI Urine and Blood culture grew Enterococcus Continue IV vanc Awaiting ID consult Hypoxia required 2 L oxygen CTA chest did not show any acute abnormalities BNP 64 Procalcitonin negative TSH is WNL Weaned off oxygen History of CAD status post CABG On aspirin, Plavix, metoprolol succinate and statin Transient chest pain reported on admission Currently asymptomatic EKG no acute findings Trop trend was normal Depression On citalopram Diabetes Hold home p.o. medications and semaglutide Continue Insulin Sliding scale HbA1c 7.5 GERD On famotidine DVT prophylaxis-Heparin subcu Full code. I spent a total 40 minutes coordinating, documenting and providing care for this patient excluding time spent in performance of separately billed services Admission and Anticipated Discharge Date Admission Date: January 14, 2025 Subjective Patient seen and examined Reports feeling better today No new complaints Physical Exam Constitutional: + well hydrated; no acute distress Eyes: PERRL, conjunctivae normal, anicteric sclerae ENMT: external ear and nose normal, oropharynx normal Respiratory: normal respiratory effort, lungs clear to auscultation Cardiovascular: Rate/Rhythm: regular rate and regular rhythm Gastrointestinal (Abdomen): normal bowel sounds, soft, nontender, no hepatosplenomegaly Musculoskeletal: No pedal edema Neurologic: PERRL, EOMI, accommodation nl, no face palsy, no dysarthria Psychiatric: A+Ox3, euthymic affect Results & Data Results & Data Vital Signs (Past 12 Hours) Vital Signs Temp Pulse Resp BP Pulse Ox O2 Del Method 01/17/25 08:24 36.4 C L 61 16 125/68 93 Room Air 01/17/25 04:00 37.1 C 63 18 128/72 92 Room Air 01/17/25 00:00 36.7 C 65 18 104/64 91 Room Air Laboratory Results Abnormal lab results 01/16/25 01/16/25 01/16/25 Range/Units 12:08 17:06 20:26 RBC (4.70-6.10) M/uL Hgb (14.0-18.0) g/dl Hct (42.0-52.0) % Sodium (136-145) mmol/L Glucose (70-99(Fasting)) mg/dl POC Glucose 127 H 136 H 157 H (70-99) mg/dl 01/17/25 01/17/25 Range/Units 08:07 08:52 RBC 4.18 L (4.70-6.10) M/uL Hgb 12.3 L (14.0-18.0) g/dl Hct 36.2 L (42.0-52.0) % Sodium 135 L (136-145) mmol/L Glucose 168 H (70-99(Fasting)) mg/dl POC Glucose 107 H (70-99) mg/dl
--- NOTE | 2025-01-17 10:59 | Pharmacy Report ---
Pharmacy PK ABX Note - Date of Service January 17, 2025 - Assessment and Plan Assessment 01/17 BC 06/21 E. faecalis. E. faecalis in urine culture. Updated with sensitivities. Consider de-escalation. ID consulted. Random level this morning 16.3 mcg/mL correlates with a trough below 10 mg/mL and low end of AUC/DEMETRI range. Will increase frequency. 01/15 74 year old M receiving vancomycin for treatment of bacteremia. Blood cultures (+) GPC in chains in 05/22 and E. faecalis in 05/22. Blood biofire (-) VRE resistance genes. Renal function stable Day # 1 of antimicrobial therapy. Plan Vancomycin * Loading dose: 1500 mg IV x 1 * Previous dose: 1500 mg IV every 24 hours * Adjust to: 1500 mg IV every 18 hours * Regimen is predicted to achieve target AUC/DEMETRI of 400-600 mg/L.hr * Additional level to be obtained in 2-3 days Pharmacy will continue to follow and will adjust dose/frequency as necessary. Thank you. Pharmacy has transitioned to AUC monitoring for vancomycin. AUC/DEMETRI is the preferred PK/PD target and is associated with decreased risk of nephrotoxicity compared to traditional trough targets.
[2025-01-17] MEDS: VANCOMYCIN HCL 1,500 MG in SODIUM CHLORIDE 0.9% 500 ML IV SCH (13:43)
[2025-01-18 06:59] LABS: Hematocrit (blood only) 35.9 % (42.0-52.0); Hemoglobin 12.3 g/dl (14.0-18.0); Mean Corpuscular Hemoglobin 29.4 pg (25.0-34.0); Mean Corpuscular Volume 85.7 fL (80.0-100.0); Platelet Count 187 K/uL (130-400); RDW Standard Deviation 42.5 fL (36.4-46.3); Red Blood Count 4.19 M/uL (4.70-6.10); White Blood Count 6.22 K/ul (4.8-10.8)
[2025-01-18 07:13] LABS: Anion Gap 7.0 (3-11); Blood Urea Nitrogen 13.0 mg/dl (6-23); Calcium 8.8 mg/dl (8.6-10.3); Carbon Dioxide 24.0 mmol/L (21-32); Chloride 101.0 mmol/L (98-107); Creatinine Clr Calc Pharmacy 68.9 ml/min; Glucose 136.0 mg/dl (70-99(Fasting)); Potassium 3.9 mmol/L (3.5-5.1); Sodium 132.0 mmol/L (136-145)
--- NOTE | 2025-01-18 12:31 | Hospitalist Progress Note ---
Date of Service January 18, 2025 Assessment & Plan (1) Bacteremia: (2) Weakness: Plan: 74-year-old male with past medical history significant for diabetes, dyslipidemia, hypertension, history of CAD status post CABG, benign familial tremor, moderate major depression who lives with his girlfriend comes because of weakness and ambulatory dysfunction and he was hypoxic and hypotensive for the EMS. Enterococcus bacteremia Enterococcus UTI Urine and Blood culture grew Enterococcus Continue IV vanc Awaiting ID consult Hypoxia required 2 L oxygen CTA chest did not show any acute abnormalities BNP 64 Procalcitonin negative TSH is WNL Weaned off oxygen History of CAD status post CABG On aspirin, Plavix, metoprolol succinate and statin Transient chest pain reported on admission Currently asymptomatic EKG no acute findings Trop trend was normal Depression On citalopram Diabetes Hold home p.o. medications and semaglutide Continue Insulin Sliding scale HbA1c 7.5 GERD On famotidine DVT prophylaxis-Heparin subcu Full code. I spent a total 35 minutes coordinating, documenting and providing care for this patient excluding time spent in performance of separately billed services Admission and Anticipated Discharge Date Admission Date: January 14, 2025 Subjective Patient seen and examined Denied any new complaints Physical Exam Constitutional: + well hydrated; no acute distress Eyes: PERRL, conjunctivae normal, anicteric sclerae ENMT: external ear and nose normal, oropharynx normal Respiratory: normal respiratory effort, lungs clear to auscultation Cardiovascular: Rate/Rhythm: regular rate and regular rhythm Gastrointestinal (Abdomen): normal bowel sounds, soft, nontender, no hepatosplenomegaly Neurologic: PERRL, EOMI, accommodation nl, no face palsy, no dysarthria Psychiatric: A+Ox3, euthymic affect Results & Data Results & Data Vital Signs (Past 12 Hours) Vital Signs Temp Pulse Pulse Resp BP BP Pulse Ox 01/18/25 11:39 36.5 C 66 18 106/64 96 01/18/25 07:47 36.9 C 70 20 116/72 91 01/18/25 06:13 69 01/18/25 03:27 37.6 C H 73 18 145/72 H 95 01/18/25 03:15 37.5 C 72 16 132/65 92 O2 Del Method 01/18/25 11:39 Room Air 01/18/25 07:47 Room Air 01/18/25 06:13 01/18/25 03:27 Room Air 01/18/25 03:15 Room Air
--- NOTE | 2025-01-18 17:55 | Infectious Disease Consult ---
Date of Service January 18, 2025 Telehealth Information I performed this visit using a real-time telehealth connection between my location and the patients location ([facility]). After connecting through interactive tele-video, patient was identified by name and date of and/or wristband check.Patient (or authorized healthcare bank representative) was informed that this was a telemedicine visit and it was being conducted confidentially over secure lines. My office door was closed and no one else was present in the room with me.Patient (or authorized healthcare bank representative) provided consent to proceed with the visit, expressed an understanding of privacy and security of the telemedicine visit, and gave permission to have a hospital bank representative in the room in order to assist with the visit and to conduct portions of the visit, as needed. I informed the patient (or authorized healthcare bank representative) that I reviewed their record and presented the opportunity for them to ask any questions regarding the visit today. The patient agreed to participate. Assessment & Plan (1) Complicated UTI (urinary tract infection): (2) Bacteremia due to Enterococcus: (3) NSTEMI (non-ST elevated myocardial infarction): Plan If there are no contraindications for ampicillin, I would recommend stopping vancomycin and starting on IV ampicillin. When ready for discharge, step-down IV ampicillin to oral linezolid 600 mg twice daily to complete a course of 14 days with anticipated end date of January 28, 2025. Thank you for consulting Infectious Disease. We will sign off for now. History of Present Illness History of Present Illness Mr. Hudson is a 74-year-old man with medical history of type 2 diabetes, HTN, dyslipidemia, CAD status post CABG, benign familial tremor and major depressive disorder who was admitted to [facility] on 01/14 because of generalized weakness. On presentation, he was afebrile, but spiked a fever of 38.2 the 2nd day of admission. Also, in the ED, his blood pressure was on the lower side and he was requiring 2 L of oxygen via nasal cannula. His blood pressure responded appropriately to IV fluids. Initial workup showed leukocytosis of 11.2 (ANC 9.7), his UA showed 4+ bacteria with 0-5 WBCs and shortly after admission, his blood culture came back positive for Enterococcus faecalis. Urine culture later grew E faecalis as well. Given his hypoxia on admission, a CTA chest was performed which was not impressive. ID team was consulted for further recommendations and to help guide antibiotic treatment. Allergies Allergy/AdvReac Type Severity Reaction Status Date / Time No Known Allergies Allergy Verified 01/13/25 21:57 Home Medications Medication Instructions Recorded Confirmed Type aspirin 81 mg tablet,delayed 81 mg PO QAM 03/27/24 01/13/25 History release atorvastatin 40 mg tablet 40 mg PO QAM 03/27/24 01/13/25 History citalopram 20 mg tablet 20 mg PO HS 03/27/24 01/13/25 History empagliflozin 25 mg tablet 25 mg PO QAM 03/27/24 01/13/25 History (Jardiance) famotidine 10 mg tablet 10 mg PO QAM 03/27/24 01/13/25 History gabapentin 300 mg capsule 600 mg PO AMHS 03/27/24 01/13/25 History metformin 1,000 mg tablet 1,000 mg PO BIDM 03/27/24 01/13/25 History multivit,calcium,min-folic acid 1 tab PO QAM 03/27/24 01/13/25 History 240 mcg-D3 25 mcg-lycop 300 mcg tablet (One A Day Men Complete) acetaminophen 650 mg 650 mg PO Q8H PRN Pain 01/13/25 01/13/25 History tablet,extended release clopidogrel 75 mg tablet 75 mg PO QAM 01/13/25 01/13/25 History metoprolol succinate 50 mg 50 mg PO QAM 01/13/25 01/13/25 History tablet,extended release 24 hr semaglutide 2 mg/dose (8 mg/3 mL) 2 mg subcut WK 01/13/25 01/13/25 History subcutaneous pen injector (Ozempic) triamcinolone acetonide 0.1 % 1 applic topical DIRECTED PRN 01/13/25 01/13/25 History topical cream NEEDED. Patient History Medical History (Updated 01/18/25 @ 17:55 by Andrew Javed MD) Dyslipidemia Family History Other Cancer Diabetes Heart disease Hypertension Social History Smoking Status: Never smoker Tobacco Type: Cigarettes and Smokeless Tobacco (Dip or Chew) Second Hand Exposure: No; Do You Dip or Chew Tobacco: Yes (Quit with surgery); Hx Alcohol Use: No Hx Substance Use: No Preferred Language: Belarusian Communication Ability: Effective Customer Services Coordinator Required: No Beliefs That Will Affect Care: None marital status: Current Living Situation: Significant Other Current Living Situation Comment: kelsy ribeiro girlfriend current occupational status: unemployed current occupation: Retired Feels Safe at Home: Yes Assistive Devices: Oxygen - Continuous, Walker and Wheelchair Review of Systems Negative except for what was mentioned in the H&P Physical Exam Could not be performed as the visit was conducted via TeleMed Results & Data Vital Signs (Past 12 Hours) Vital Signs Temp Pulse Pulse Resp BP BP Pulse Ox 01/18/25 15:39 37.0 C 73 18 100/58 L 95 01/18/25 11:39 36.5 C 66 18 106/64 96 01/18/25 07:47 36.9 C 70 20 116/72 91 01/18/25 06:13 69 O2 Del Method 01/18/25 15:39 Room Air 01/18/25 11:39 Room Air 01/18/25 07:47 Room Air 01/18/25 06:13 Laboratory Results Microbiology: 01/13: Urine culture growing ampicillin sensitive E faecalis 01/14: 2/4 bottles of blood culture growing E faecalis Diagnostic Findings CTA chest performed on 01/13: 1. The aortic arch is mildly calcified but nondilated. There is no aneurysm or dissection. 2. The pulmonary arterial tree is adequately opacified with contrast. No pulmonary embolism is identified. 3. Previous sternotomy and CABG. The heart is borderline enlarged. Severe coronary calcification is present. No pericardial effusion. 4. Small amount of atelectasis in the dependent portion of both lung bases. The lungs are otherwise clear.
--- NOTE | 2025-01-18 18:37 | Communication Note ---
Date of Service: January 18, 2025 Asked to evaluate with increasing temperature and confusion. Remains weak and lethargic with chills and communicating normally does slow and wants to sleep following any conversation. Denies any significant distress. Hemodynamically stable with blood pressure on the lower side and seems to have negative balance so far. Will get blood cultures and give 1000 mL of normal saline at a rate of 125 cc an hour. Expected to improve. Dr Asmita Arcos
[2025-01-18] MEDS: SODIUM CHLORIDE 0.9% 1,000 ML IV SCH (18:40)
[2025-01-19 06:42] LABS: Hematocrit (blood only) 36.0 % (42.0-52.0); Hemoglobin 11.9 g/dl (14.0-18.0); Mean Corpuscular Hemoglobin 28.7 pg (25.0-34.0); Mean Corpuscular Volume 86.7 fL (80.0-100.0); Platelet Count 187 K/uL (130-400); RDW Standard Deviation 44.1 fL (36.4-46.3); Red Blood Count 4.15 M/uL (4.70-6.10); White Blood Count 7.13 K/ul (4.8-10.8)
[2025-01-19 06:52] LABS: Anion Gap 6.0 (3-11); Blood Urea Nitrogen 12.0 mg/dl (6-23); Calcium 8.8 mg/dl (8.6-10.3); Carbon Dioxide 24.0 mmol/L (21-32); Chloride 103.0 mmol/L (98-107); Creatinine Clr Calc Pharmacy 66.4 ml/min; Glucose 204.0 mg/dl (70-99(Fasting)); Potassium 4.5 mmol/L (3.5-5.1); Sodium 133.0 mmol/L (136-145)
[2025-01-19] MEDS ORDERED: AMPICILLIN 500 MG in SODIUM CHLORIDE 0.9% 50 ML IV SCH (08:45)
[2025-01-19] MEDS: AMPICILLIN 2,000 MG in SODIUM CHLOR 0.9% MINI-B 100 ML IV SCH ×2 (09:50→14:13)
[2025-01-19] MEDS ORDERED: Nursing to Pharmacy Communication SCH (12:30)
--- NOTE | 2025-01-19 12:52 | Hospitalist Progress Note ---
Date of Service January 19, 2025 Assessment & Plan (1) Bacteremia: (2) Weakness: Plan: 74-year-old male with past medical history significant for diabetes, dyslipidemia, hypertension, history of CAD status post CABG, benign familial tremor, moderate major depression who lives with his girlfriend comes because of weakness and ambulatory dysfunction and he was hypoxic and hypotensive for the EMS. #Enterococcus bacteremia -Secondary to UTI -Urine and Blood culture grew Enterococcus -Fevers persist -ID evaluated 01/19, recommended switching to amp Plan -Switch to Amp. Dc Vanc -There has not been any documented clearance. waiting on repeat bcx -Tentatively planned for PO linezolid x 2 weeks per ID but need to wait for bcx to be finalized -Follow temp, WBC -Home when ready #Hypoxia -Resolved #History of CAD status post CABG On aspirin, Plavix, metoprolol succinate and statin #Depression On citalopram #Diabetes Hold home p.o. medications and semaglutide Continue Insulin Sliding scale HbA1c 7.5 GERD On famotidine DVT prophylaxis-Heparin subcu Full code. I spent a total 33 minutes coordinating, documenting and providing care for this patient excluding time spent in performance of separately billed services Admission and Anticipated Discharge Date Admission Date: January 14, 2025 Subjective Feeling well today. Denies any complaints. Patient denies F/C, CP, palpitations, SOB, dyspnea, abd pain, N/V/D Became very agitated when told he could not go home today. attempted to calm patient but was unsuccesful Physical Exam Physical Exam: Vitals and labs reviewed General: Well appearing, NAD HEENT: EOMI, PERRLA Neck: Supple Cardiac: RRR no rubs gallops or murmurs Lungs: CTA no rhonchi wheezing or rales Abd: S NT ND BS positive MSK: Full ROM. No obvious deformities Ext: No Edema cyanosis Skin: Warm, Dry Neuro: AOx3 No focal deficits. Psych: Normal Mood Results & Data Results & Data Vital Signs (Past 12 Hours) Vital Signs Temp Pulse Pulse Resp BP BP Pulse Ox 01/19/25 12:00 37 C 67 18 107/54 L 94 01/19/25 08:17 36.9 C 60 16 110/57 L 92 01/19/25 07:24 64 01/19/25 03:47 37.5 C 01/19/25 03:00 39.4 C H 83 20 104/62 92 01/19/25 02:00 Pulse Ox O2 Del Method O2 Del Method 01/19/25 12:00 Room Air 01/19/25 08:17 Room Air 01/19/25 07:24 01/19/25 03:47 01/19/25 03:00 Room Air 01/19/25 02:00 93 Room Air Laboratory Results Abnormal lab results 01/18/25 01/18/25 01/19/25 Range/Units 16:30 20:14 06:11 RBC 4.15 L (4.70-6.10) M/uL Hgb 11.9 L (14.0-18.0) g/dl Hct 36.0 L (42.0-52.0) % MPV 9.2 L (9.4-12.4) fL Sodium 133 L (136-145) mmol/L Glucose 204 H (70-99(Fasting)) mg/dl POC Glucose 161 H 189 H (70-99) mg/dl 01/19/25 01/19/25 Range/Units 08:25 12:10 RBC (4.70-6.10) M/uL Hgb (14.0-18.0) g/dl Hct (42.0-52.0) % MPV (9.4-12.4) fL Sodium (136-145) mmol/L Glucose (70-99(Fasting)) mg/dl POC Glucose 235 H 185 H (70-99) mg/dl
[2025-01-20 07:22] LABS: Creatinine Clr Calc Pharmacy 54.4 ml/min
--- NOTE | 2025-01-20 10:30 | Hospitalist Progress Note ---
Date of Service January 20, 2025 Assessment & Plan (1) Bacteremia: (2) Weakness: Plan: 74-year-old male with past medical history significant for diabetes, dyslipidemia, hypertension, history of CAD status post CABG, benign familial tremor, moderate major depression who lives with his girlfriend comes because of weakness and ambulatory dysfunction and he was hypoxic and hypotensive for the EMS. #Enterococcus bacteremia -Secondary to UTI -Urine and Blood culture grew Enterococcus faecalis -Fevers persist as of evening of 01/19, albeit improving -ID evaluated 01/19, recommended switching to amp -Vanc switched to amp on 01/19 -Repeat Blood cultures 01/18 growing GPC in chains, likely enterococcus Plan -Continue ampicillin -Earlier plan of discharging on PO linezolid x 2 weeks is cancelled due to persistent bacteremia -Will repeat blood cultures again today. Documented clearance is imperative for discharge -Will Reach out to ID again given the evolving situation -Will likely need ERASMO -Check CBC -Monitor fevers -Dispo TBD. He may need IV abx rather than PO -Explained to patient the life threatening nature of bacteremia #Hypoxia -Resolved #History of CAD status post CABG On aspirin, Plavix, metoprolol succinate and statin #Depression On citalopram #Diabetes Hold home p.o. medications and semaglutide Continue Insulin Sliding scale HbA1c 7.5 GERD On famotidine DVT prophylaxis-Heparin subcu Full code. I spent a total 55 minutes coordinating, documenting and providing care for this patient excluding time spent in performance of separately billed services Admission and Anticipated Discharge Date Admission Date: January 14, 2025 Subjective Feeling well today. He apologized for being agitated yesterday. Patient denies F/C, CP, palpitations, SOB, dyspnea, abd pain, N/V/D Physical Exam Physical Exam: Vitals and labs reviewed General: Well appearing, NAD HEENT: EOMI, PERRLA Neck: Supple Cardiac: RRR no rubs gallops or murmurs Lungs: CTA no rhonchi wheezing or rales Abd: S NT ND BS positive MSK: Full ROM. No obvious deformities Ext: No Edema cyanosis Skin: Warm, Dry Neuro: AOx3 No focal deficits. Psych: Normal Mood Results & Data Results & Data Vital Signs (Past 12 Hours) Vital Signs Temp Pulse Resp BP BP Pulse Ox Pulse Ox 01/20/25 03:44 36.5 C 72 18 114/53 L 92 01/20/25 02:00 95 01/20/25 00:18 37.5 C 63 18 111/61 95 O2 Del Method O2 Del Method 01/20/25 03:44 Room Air 01/20/25 02:00 Room Air 01/20/25 00:18 Room Air Laboratory Results Abnormal lab results 01/19/25 01/19/25 01/19/25 Range/Units 12:10 17:55 21:21 POC Glucose 185 H 194 H 234 H (70-99) mg/dl 01/20/25 Range/Units 08:40 POC Glucose 216 H (70-99) mg/dl
--- NOTE | 2025-01-20 10:48 | Infectious Disease Progress Nt ---
Date of Service January 20, 2025 Telehealth Information Patient not seen Subjective Blood cultures from 01/18 continue to be positive. He will need to have repeat blood cultures x 2 today, and we will need to obtain a TTE. Continue IV ampicillin at 2g IV q 4 and add ceftriaxone 2g IV q 12. Final abx plans remain pending. Results & Data Vital Signs (Past 12 Hours) Vital Signs Temp Pulse Resp BP BP Pulse Ox Pulse Ox 01/20/25 03:44 36.5 C 72 18 114/53 L 92 01/20/25 02:00 95 01/20/25 00:18 37.5 C 63 18 111/61 95 O2 Del Method O2 Del Method 01/20/25 03:44 Room Air 01/20/25 02:00 Room Air 01/20/25 00:18 Room Air
[2025-01-20 11:11] LABS: Hematocrit (blood only) 32.2 % (42.0-52.0); Hemoglobin 10.8 g/dl (14.0-18.0); Immature Granulocytes # (auto) 0.09 K/uL (0.01-0.20); Immature Granulocytes % (auto) 1.3 %; Mean Corpuscular Hemoglobin 29.3 pg (25.0-34.0); Mean Corpuscular Volume 87.5 fL (80.0-100.0); Platelet Count 206 K/uL (130-400); RDW Standard Deviation 45.7 fL (36.4-46.3); Red Blood Count 3.68 M/uL (4.70-6.10); White Blood Count 7.00 K/ul (4.8-10.8)
[2025-01-20] MEDS: cefTRIAXone SODIUM 2,000 MG/50 ML BAG IV SCH (11:44)
[2025-01-20] MEDS: KETOROLAC TROMETHAMINE 15 MG/ML VIAL IV ONE (23:16)
[2025-01-21 06:17] LABS: Hematocrit (blood only) 32.1 % (42.0-52.0); Hemoglobin 10.8 g/dl (14.0-18.0); Immature Granulocytes # (auto) 0.06 K/uL (0.01-0.20); Immature Granulocytes % (auto) 0.9 %; Mean Corpuscular Hemoglobin 29.2 pg (25.0-34.0); Mean Corpuscular Volume 86.8 fL (80.0-100.0); Platelet Count 214 K/uL (130-400); RDW Standard Deviation 44.1 fL (36.4-46.3); Red Blood Count 3.70 M/uL (4.70-6.10); White Blood Count 6.84 K/ul (4.8-10.8)
[2025-01-21 06:34] LABS: Creatinine Clr Calc Pharmacy 52.4 ml/min
--- NOTE | 2025-01-21 10:29 | Hospitalist Progress Note ---
Date of Service January 21, 2025 Assessment & Plan (1) Bacteremia: (2) Weakness: Plan 74-year-old male with past medical history significant for diabetes, dyslipidemia, hypertension, history of CAD status post CABG, benign familial tremor, moderate major depression who lives with his girlfriend comes because of weakness and ambulatory dysfunction and he was hypoxic and hypotensive for the EMS. #Enterococcus bacteremia -Secondary to UTI -Urine and Blood culture grew Enterococcus faecalis -ID evaluated 01/19, recommended switching to amp -Vanc switched to amp on 01/19 -Repeat Blood cultures 01/18 growing GPC in chains, likely enterococcus -TTE no evidence of vegetation -Afebrile x 24 hours Plan -Continue ampicillin + CTX per ID -Follow repeat bcx Documented clearance is imperative for discharge -Check CBC -Monitor fevers -Dispo TBD. He may need IV abx rather than PO #Hypoxia -Resolved #History of CAD status post CABG On aspirin, Plavix, metoprolol succinate and statin #Depression On citalopram #Diabetes Hold home p.o. medications and semaglutide Continue Insulin Sliding scale HbA1c 7.5 GERD On famotidine #Anemia -Normocytic -Mild -Chronic, POA -NO s/s blood loss -Advised he f/u with his PCP for colonoscopy for CRC surveilance DVT prophylaxis-Heparin subcu Full code. I spent a total 37 minutes coordinating, documenting and providing care for this patient excluding time spent in performance of separately billed services Admission and Anticipated Discharge Date Admission Date: January 14, 2025 Subjective Feeling well today. no complaints. Patient denies F/C, CP, palpitations, SOB, dyspnea, abd pain, N/V/D Physical Exam Physical Exam: Vitals and labs reviewed General: Well appearing, NAD HEENT: EOMI, PERRLA Neck: Supple Cardiac: RRR no rubs gallops or murmurs Lungs: CTA no rhonchi wheezing or rales Abd: S NT ND BS positive MSK: Full ROM. No obvious deformities Ext: No Edema cyanosis Skin: Warm, Dry Neuro: AOx3 No focal deficits. Psych: Normal Mood Results & Data Results & Data Vital Signs (Past 12 Hours) Vital Signs Temp Pulse Resp BP Pulse Ox Pulse Ox O2 Del Method 01/21/25 07:00 36.8 C 64 127/66 96 Room Air 01/21/25 03:49 36.4 C L 62 18 125/60 95 Room Air 01/21/25 02:00 90 01/21/25 00:45 37.2 C 73 18 123/58 L 90 Room Air O2 Del Method 01/21/25 07:00 01/21/25 03:49 01/21/25 02:00 Room Air 01/21/25 00:45 Laboratory Results Abnormal lab results 01/20/25 01/20/25 01/20/25 Range/Units 06:30 12:13 17:00 RBC 3.68 L (4.70-6.10) M/uL Hgb 10.8 L (14.0-18.0) g/dl Hct 32.2 L (42.0-52.0) % MPV (9.4-12.4) fL Lymph # (Auto) 0.86 L (1.20-3.40) K/uL [place] # (Auto) 0.91 H (0.11-0.59) K/uL POC Glucose 245 H 128 H (70-99) mg/dl 01/20/25 01/21/25 01/21/25 Range/Units 20:32 05:43 08:13 RBC 3.70 L (4.70-6.10) M/uL Hgb 10.8 L (14.0-18.0) g/dl Hct 32.1 L (42.0-52.0) % MPV 9.1 L (9.4-12.4) fL Lymph # (Auto) 0.96 L (1.20-3.40) K/uL [place] # (Auto) (0.11-0.59) K/uL POC Glucose 154 H 130 H (70-99) mg/dl
--- NOTE | 2025-01-22 12:03 | Hospitalist Progress Note ---
Date of Service January 22, 2025 Assessment & Plan (1) Bacteremia: (2) Weakness: Plan 74-year-old male with past medical history significant for diabetes, dyslipidemia, hypertension, history of CAD status post CABG, benign familial tremor, moderate major depression who lives with his girlfriend comes because of weakness and ambulatory dysfunction and he was hypoxic and hypotensive for the EMS. #Enterococcus bacteremia -Secondary to UTI -Urine and Blood culture grew Enterococcus faecalis -ID evaluated 01/19, recommended switching to amp -Vanc switched to amp on 01/19 -Repeat Blood cultures 01/18 growing E. faecalis -TTE no evidence of vegetation -Afebrile x 48hours Plan -Continue ampicillin + CTX per ID -Follow repeat bcx Documented clearance is imperative for discharge -Check CBC -Monitor fevers -Dispo TBD. He may need IV abx rather than PO #Hypoxia -Resolved #History of CAD status post CABG On aspirin, Plavix, metoprolol succinate and statin #Depression On citalopram #Diabetes Hold home p.o. medications and semaglutide Continue Insulin Sliding scale HbA1c 7.5 GERD On famotidine #Anemia -Normocytic -Mild -Chronic, POA -NO s/s blood loss -Advised he f/u with his PCP for colonoscopy for CRC surveilance DVT prophylaxis-Heparin subcu Full code. I spent a total 35 minutes coordinating, documenting and providing care for this patient excluding time spent in performance of separately billed services Admission and Anticipated Discharge Date Admission Date: January 14, 2025 Subjective Feeling well today. no complaints. Patient denies F/C, CP, palpitations, SOB, dyspnea, abd pain, N/V/D Physical Exam Physical Exam: Vitals and labs reviewed General: Well appearing, NAD HEENT: EOMI, PERRLA Neck: Supple Cardiac: RRR no rubs gallops or murmurs Lungs: CTA no rhonchi wheezing or rales Abd: S NT ND BS positive MSK: Full ROM. No obvious deformities Ext: No Edema cyanosis Skin: Warm, Dry Neuro: AOx3 No focal deficits. Psych: Normal Mood Results & Data Results & Data Vital Signs (Past 12 Hours) Vital Signs Temp Pulse Resp BP Pulse Ox O2 Del Method 01/22/25 07:52 36.8 C 82 18 120/57 L 94 Room Air
--- NOTE | 2025-01-23 09:12 | Hospitalist Progress Note ---
Date of Service January 23, 2025 Assessment & Plan (1) Bacteremia: (2) Weakness: Plan 74-year-old male with past medical history significant for diabetes, dyslipidemia, hypertension, history of CAD status post CABG, benign familial tremor, moderate major depression who lives with his girlfriend comes because of weakness and ambulatory dysfunction and he was hypoxic and hypotensive for the EMS. #Enterococcus bacteremia -Secondary to UTI -Urine and Blood culture grew Enterococcus faecalis -ID evaluated 01/19, recommended switching to amp -ID recommended adding CTX on 01/20 -Vanc switched to amp on 01/19 -Repeat Blood cultures 01/18 growing E. faecalis -Blood cx 01/20, NGTD -TTE no evidence of vegetation -Afebrile x 48hours Plan -Continue ampicillin + CTX per ID -Blood cultures have cleared -D/w ID today, recommending ERASMO -Consult cardio. NPO after MN -Check CBC -Monitor fevers -Dispo TBD. He may need IV abx rather than PO #Hypoxia -Resolved #History of CAD status post CABG On aspirin, Plavix, metoprolol succinate and statin #Depression On citalopram #Diabetes Hold home p.o. medications and semaglutide Continue Insulin Sliding scale HbA1c 7.5 GERD On famotidine #Anemia -Normocytic -Mild -Chronic, POA -NO s/s blood loss -Advised he f/u with his PCP for colonoscopy for CRC surveilance DVT prophylaxis-Heparin subcu Full code. I spent a total 41 minutes coordinating, documenting and providing care for this patient excluding time spent in performance of separately billed services Admission and Anticipated Discharge Date Admission Date: January 14, 2025 Subjective Feeling well today. no complaints. Patient denies F/C, CP, palpitations, SOB, dyspnea, abd pain, N/V/D. D/w brother on phone Physical Exam Physical Exam: Vitals and labs reviewed General: Well appearing, NAD HEENT: EOMI, PERRLA Neck: Supple Cardiac: RRR no rubs gallops or murmurs Lungs: CTA no rhonchi wheezing or rales Abd: S NT ND BS positive MSK: Full ROM. No obvious deformities Ext: No Edema cyanosis Skin: Warm, Dry Neuro: AOx3 No focal deficits. Psych: Normal Mood Results & Data Results & Data Vital Signs (Past 12 Hours) Vital Signs Temp Pulse Resp BP Pulse Ox O2 Del Method 01/23/25 07:33 36.8 C 64 18 130/71 92 Room Air 01/22/25 23:10 36.9 C 67 16 137/65 94 Room Air
--- NOTE | 2025-01-23 20:12 | Cardiology Consultation ---
Date of Consultation January 23, 2025 Assessment & Plan (1) Bacteremia due to Enterococcus: (2) Bacteremia: (3) Complicated UTI (urinary tract infection): Plan &4 year old with CADs/p cabg TALAVERA to LAD, SVG to OM , DM, HTN , Dyslipidemia admitted with hypoxia , bacteremia ,enterococcus faecalis Enterococcus bacteremia with UTI and positive urine culture for enterococcus ID requested ERASMO Plan TTE with anesthesia tomorrow NPO midnight History of Present Illness Reason for Consultation: ERASMO Requesting Physician: Hospitalist Attending Physician: Jamel Romero DO History of Present Illness 74 year old male with history of CAD NSTEMI 03/2024 with cardiac cath severe distal left main disease transferred to [facility] CABG performed with TALAVERA to LAD and SVG to obtuse marginal branch , cardiac rehabilitation at [facility] , [facility] . admitted on for hypoxia and UTI - blood cultures positive for enterococcus on . 01/17 urine culture positive for enterococcus faecalis ID recommended ERASMO for further evaluation pt denies chest pain , son no trouble swallowing Allergies Allergy/AdvReac Type Severity Reaction Status Date / Time No Known Allergies Allergy Verified 01/13/25 21:57 Home Medications Medication Instructions Recorded Confirmed Type aspirin 81 mg tablet,delayed 81 mg PO QAM 03/27/24 01/13/25 History release atorvastatin 40 mg tablet 40 mg PO QAM 03/27/24 01/13/25 History citalopram 20 mg tablet 20 mg PO HS 03/27/24 01/13/25 History empagliflozin 25 mg tablet 25 mg PO QAM 03/27/24 01/13/25 History (Jardiance) famotidine 10 mg tablet 10 mg PO QAM 03/27/24 01/13/25 History gabapentin 300 mg capsule 600 mg PO AMHS 03/27/24 01/13/25 History metformin 1,000 mg tablet 1,000 mg PO BIDM 03/27/24 01/13/25 History multivit,calcium,min-folic acid 1 tab PO QAM 03/27/24 01/13/25 History 240 mcg-D3 25 mcg-lycop 300 mcg tablet (One A Day Men Complete) acetaminophen 650 mg 650 mg PO Q8H PRN Pain 01/13/25 01/13/25 History tablet,extended release clopidogrel 75 mg tablet 75 mg PO QAM 01/13/25 01/13/25 History metoprolol succinate 50 mg 50 mg PO QAM 01/13/25 01/13/25 History tablet,extended release 24 hr semaglutide 2 mg/dose (8 mg/3 mL) 2 mg subcut WK 01/13/25 01/13/25 History subcutaneous pen injector (Ozempic) triamcinolone acetonide 0.1 % 1 applic topical DIRECTED PRN 01/13/25 01/13/25 History topical cream NEEDED. Patient History Medical History (Updated 01/18/25 @ 17:55 by Andrew Javed MD) Dyslipidemia Family History Other Cancer Diabetes Heart disease Hypertension Social History Smoking Status: Never smoker Tobacco Type: Cigarettes and Smokeless Tobacco (Dip or Chew) Second Hand Exposure: No; Do You Dip or Chew Tobacco: Yes (Quit with surgery); Hx Alcohol Use: No Hx Substance Use: No Preferred Language: [place]ican Communication Ability: Effective Subcontract Manager Required: No Beliefs That Will Affect Care: None marital status: Current Living Situation: Significant Other Current Living Situation Comment: kelsy ribeiro girlfriend current occupational status: unemployed current occupation: Retired Feels Safe at Home: Yes Assistive Devices: Oxygen - Continuous, Walker and Wheelchair Review of Systems Constitutional: fatique Respiratory: sob Cardiovascular: Additional Comments: no orthopnea, PND or chest pain Genitourinary: + urinary frequency and + urinary urgenc y Neurologic: no focal weakness Physical Exam Constitutional: WD/WN, vitals as above Respiratory: normal respiratory effort, lungs clear to auscultation Cardiovascular: Rate/Rhythm: regular rate and regular rhythm Heart Sounds: normal S1 and normal S2; no murmur Extremities: no edema Neurologic: PERRL, EOMI, accommodation nl, no face palsy, no dysarthria Results & Data Vital Signs (Past 12 Hours) Vital Signs Temp Pulse Resp BP Pulse Ox O2 Del Method 01/23/25 15:52 70 95 Room Air 01/23/25 15:20 36.8 C 52 L 18 138/55 L 91 Room Air Laboratory Results Intake and Output 01/23/25 01/23/25 01/23/25 06:59 14:59 22:59 Intake Total 200 / 940 370 / 570 200 / 570 Output Total 600 / 2450 1700 / 2100 400 / 2100 Balance -400 / -1510 -1330 / -1530 -200 / -1530 Intake: IV 200 / 700 150 / 350 200 / 350 Ampicillin 2,000 mg In Sodium 200 / 600 100 / 300 200 / 300 Chlor 0.9% Mini-B 100 ml @ 200 mls/hr IV Q4H [facility] Rx#:[id number] cefTRIAXone SODIUM 2,000 mg In 50 / 50 50 ml @ 100 mls/hr IV Q12H [facility] Rx#:[id number] Oral 220 / 220 Output: Urine 600 / 2450 1700 / 2100 400 / 2100 Other: # Unmeasured Voids 1 1 Medications Administered Current Inpatient Medications Acetaminophen (Acetaminophen 325 Mg Tab) 650 mg PO Q4H PRN PRN Reason: Pain or Fever Stop: 02/13/25 02:05 Last Admin: 01/22/25 22:40 Dose: 650 mg Aspirin (Aspirin 81 Mg Ectab) 81 mg PO [facility] Stop: 02/13/25 08:59 Last Admin: 01/23/25 08:42 Dose: 81 mg Atorvastatin Calcium (Atorvastatin 40 Mg Tab) 40 mg PO [facility] Stop: 02/13/25 08:59 Last Admin: 01/23/25 08:42 Dose: 40 mg Citalopram Hydrobromide (Citalopram 20 Mg Tab) 20 mg PO [facility] Stop: 02/13/25 20:59 Last Admin: 01/22/25 21:25 Dose: 20 mg Clopidogrel Bisulfate (Clopidogrel Bisulfate 75 Mg Tab) 75 mg PO [facility] Stop: 02/13/25 08:59 Last Admin: 01/23/25 08:42 Dose: 75 mg Dextrose (Dextrose 50% 50 Ml Syringe) 25 - 50 ml IV UD PRN; Protocol PRN Reason: Hypoglycemia Protocol Stop: 02/13/25 02:05 Famotidine (Famotidine 10 Mg Tablet) 10 mg PO [facility] Stop: 02/13/25 08:59 Last Admin: 01/23/25 08:42 Dose: 10 mg Gabapentin (Gabapentin 300 Mg Cap) 600 mg PO [facility] Stop: 02/13/25 08:59 Last Admin: 01/23/25 08:42 Dose: 600 mg Glucagon (Glucagon For Inj 1 Mg Vial) 1 mg SQ UD PRN; Protocol PRN Reason: Hypoglycemia Protocol Stop: 02/13/25 02:05 Glucose (Glucose 40% Gel 15 Gm Tube) 15 - 30 gm PO UD PRN; Protocol PRN Reason: Hypoglycemia Protocol Stop: 02/13/25 02:05 Glucose (Glucose 10 Tab/Tube) 4 - 8 tab PO UD PRN; Protocol PRN Reason: Hypoglycemia Protocol Stop: 02/13/25 02:05 Heparin Sodium (Porcine) (Heparin Sod 5,000 Unit/0.5 Ml Vial) 5,000 units SQ Q8 [facility] Stop: 02/13/25 05:59 Last Admin: 01/23/25 14:55 Dose: 5,000 units Ampicillin Sodium 2,000 mg/ (Sodium Chloride) 100 mls @ 200 mls/hr IV Q4H [facility] Stop: 02/02/25 13:59 Last Infusion: 01/23/25 18:43 Dose: Infused Ceftriaxone Sodium (Rocephin) 2,000 mg in 50 mls @ 100 mls/hr IV Q12H [facility] Stop: 02/03/25 10:59 Last Infusion: 01/23/25 12:29 Dose: Infused Insulin Aspart (Insulin Aspart Per Unit Charge) 0 units SC ACHS [facility] Stop: 02/13/25 07:29 Last Admin: 01/23/25 17:24 Dose: 3 units Levalbuterol HCl (Levalbuterol 1.25 Mg/3 Ml Neb) 1.25 mg NEB Q4H PRN PRN Reason: Shortness Of Breath Or Wheezing Stop: 02/13/25 02:05 Metoprolol Succinate (Metoprolol Succ 50mg Ext Rel Tab) 50 mg PO QAM [facility] Stop: 02/13/25 08:59 Last Admin: 01/23/25 08:42 Dose: 50 mg Miscellaneous (Carbohydrates For Hypoglycemia ) 15 - 30 gm PO UD PRN PRN Reason: Hypoglycemia Protocol Stop: 02/13/25 02:05 Multivitamins/Minerals (Cerovite Adv Formula Tab) 1 tab PO QAM [facility] Stop: 02/13/25 08:59 Last Admin: 01/23/25 08:42 Dose: 1 tab Nitroglycerin (Nitroglycerin Sl 0.4 Mg/Tab Tab) 0.4 mg SL Q5M PRN PRN Reason: Chest Pain Stop: 02/13/25 02:05 Triamcinolone Acetonide (Triamcinolone Acet 0.1% Cr 15 Gm Tube) 1 appln TOP BID PRN PRN Reason: NEEDED. Stop: 02/13/25 02:05 PG Care Time/CCT Total # of Minutes Spent Total Time Spent with Patient: Total time spent is greater than 50% in coordination of care (as documented) at patient's floor/unit and/or counseling patient: [place] [address] IN/OBS CONSULT LVL 4,60M Patient Type New History Problem Focused Exam Expanded Problem Focused Medical Decision Making Moderate Complexity Diagnoses Bacteremia due to Enterococcus R78.81; B95.2 Bacteremia R78.81 Complicated UTI (urinary tract infection) N39.0 Time Spent (min) 60
[2025-01-24] MEDS ORDERED: Nursing to Pharmacy Communication SCH ×2 (04:00→16:30)
[2025-01-24] MEDS: INSULIN ASPART PER UNIT CHARGE SC SCH ×2 (06:07→18:07)
[2025-01-24 07:23] LABS: Hematocrit (blood only) 32.3 % (42.0-52.0); Hemoglobin 10.8 g/dl (14.0-18.0); Immature Granulocytes # (auto) 0.10 K/uL (0.01-0.20); Immature Granulocytes % (auto) 0.9 %; Mean Corpuscular Hemoglobin 29.0 pg (25.0-34.0); Mean Corpuscular Volume 86.8 fL (80.0-100.0); Platelet Count 345 K/uL (130-400); RDW Standard Deviation 44.7 fL (36.4-46.3); Red Blood Count 3.72 M/uL (4.70-6.10); White Blood Count 10.75 K/ul (4.8-10.8)
[2025-01-24 07:25] LABS: Anion Gap 6.0 (3-11); Blood Urea Nitrogen 13.0 mg/dl (6-23); Calcium 8.3 mg/dl (8.6-10.3); Carbon Dioxide 27.0 mmol/L (21-32); Chloride 106.0 mmol/L (98-107); Creatinine Clr Calc Pharmacy 46.6 ml/min; Glucose 127.0 mg/dl (70-99(Fasting)); Potassium 4.2 mmol/L (3.5-5.1); Sodium 139.0 mmol/L (136-145)
--- NOTE | 2025-01-24 10:12 | History & Physical Bridge Note ---
Date of Service January 24, 2025 History & Physical Bridge Note I have examined the patient, reviewed the History & Physical and in the interval since the performance of the History & Physical I have noted the following changes of clinical significance: no changes noted. Informed consent for ERASMO obtained. Patient elects to proceed. Aby Zuniga DO
--- NOTE | 2025-01-24 13:10 | Anesthesiology Consultation ---
Date of Service January 24, 2025 Assessment & Plan Chart Review Chart Review: Acceptable Risk for Surgery and Patient NOT seen in Pre Admission Testing Consults Requested none History Surgery Operation Date: 01/24/25 13:00 Proposed Procedures p Transesophageal Echo w/Anesthesia - Александр Zuniga DO Height/Weight Height: 6 ft Weight: 72.6 kg Allergies Allergy/AdvReac Type Severity Reaction Status Date / Time No Known Allergies Allergy Verified 01/13/25 21:57 Medications Home Medications Medication Instructions Recorded Confirmed Last Taken aspirin 81 mg tablet,delayed 81 mg PO QAM 03/27/24 01/13/25 01/12/25 release atorvastatin 40 mg tablet 40 mg PO QAM 03/27/24 01/13/25 01/12/25 citalopram 20 mg tablet 20 mg PO HS 03/27/24 01/13/25 01/12/25 empagliflozin 25 mg tablet 25 mg PO QAM 03/27/24 01/13/25 01/12/25 (Jardiance) famotidine 10 mg tablet 10 mg PO QAM 03/27/24 01/13/25 01/12/25 gabapentin 300 mg capsule 600 mg PO AMHS 03/27/24 01/13/25 01/12/25 metformin 1,000 mg tablet 1,000 mg PO BIDM 03/27/24 01/13/25 01/12/25 multivit,calcium,min-folic acid 1 tab PO QAM 03/27/24 01/13/25 01/12/25 240 mcg-D3 25 mcg-lycop 300 mcg tablet (One A Day Men Complete) acetaminophen 650 mg 650 mg PO Q8H PRN Pain 01/13/25 01/13/25 Unknown tablet,extended release clopidogrel 75 mg tablet 75 mg PO QAM 01/13/25 01/13/25 01/12/25 metoprolol succinate 50 mg 50 mg PO QAM 01/13/25 01/13/25 01/12/25 tablet,extended release 24 hr semaglutide 2 mg/dose (8 mg/3 mL) 2 mg subcut WK 01/13/25 01/13/25 01/10/25 subcutaneous pen injector (Ozempic) triamcinolone acetonide 0.1 % 1 applic topical DIRECTED PRN 01/13/25 01/13/25 Unknown topical cream NEEDED. Active Medications Generic Name Dose Route Start Last Admin Trade Name Freq PRN Reason Stop Dose Admin Acetaminophen 650 mg 01/14/25 02:06 01/22/25 22:40 Acetaminophen 325 Mg Tab PO 02/13/25 02:05 650 mg Q4H PRN Administration Pain or Fever Aspirin 81 mg 01/14/25 09:00 01/24/25 10:19 Aspirin 81 Mg Ectab PO 02/13/25 08:59 81 mg QAM [facility] Administration Atorvastatin Calcium 40 mg 01/14/25 09:00 01/24/25 10:19 Atorvastatin 40 Mg Tab PO 02/13/25 08:59 40 mg QAM [facility] Administration Citalopram Hydrobromide 20 mg 01/14/25 21:00 01/23/25 20:51 Citalopram 20 Mg Tab PO 02/13/25 20:59 20 mg HS [facility] Administration Clopidogrel Bisulfate 75 mg 01/14/25 09:00 01/23/25 08:42 Clopidogrel Bisulfate 75 Mg Tab PO 02/13/25 08:59 75 mg QAM [facility] Administration Famotidine 10 mg 01/14/25 09:00 01/24/25 10:19 Famotidine 10 Mg Tablet PO 02/13/25 08:59 10 mg QAM [facility] Administration Gabapentin 600 mg 01/14/25 09:00 01/24/25 10:19 Gabapentin 300 Mg Cap PO 02/13/25 08:59 600 mg AMHS [facility] Administration Heparin Sodium (Porcine) 5,000 units 01/14/25 06:00 01/24/25 06:25 Heparin Sod 5,000 Unit/0.5 Ml Vial SQ 02/13/25 05:59 5,000 units Q8 [facility] Administration Ampicillin Sodium 2,000 mg/ 100 mls @ 200 mls/hr 01/19/25 14:00 01/24/25 11:28 Sodium Chloride IV 02/02/25 13:59 Infused Q4H [facility] Infusion Ceftriaxone Sodium 2,000 mg in 50 mls @ 100 mls/hr 01/20/25 11:00 01/24/25 12:36 Rocephin IV 02/03/25 10:59 Infused Q12H [facility] Infusion Insulin Aspart 0 units 01/24/25 06:00 01/24/25 06:07 Insulin Aspart Per Unit Charge SC 02/23/25 05:59 Not Given Q6 [facility] Metoprolol Succinate 50 mg 01/14/25 09:00 01/24/25 10:19 Metoprolol Succ 50mg Ext Rel Tab PO 02/13/25 08:59 50 mg QAM [facility] Administration Multivitamins/Minerals 1 tab 01/14/25 09:00 01/24/25 10:19 Cerovite Adv Formula Tab PO 02/13/25 08:59 1 tab QAM [facility] Administration NPO Date Last Intake of Fluids: 01/24/25 Time Last Intake of Fluids: 08:00 Last Intake of Fluids Comment: sip with meds Date Last Intake of Solids: 01/23/25 Past Medical History Medical History (Updated 01/18/25 @ 17:55 by Andrew Javed MD) Dyslipidemia Past Family History Family History Other Cancer Diabetes Heart disease Hypertension Social History Smoking Status: Never smoker Do You Dip or Chew Tobacco: Yes (Quit with surgery) Hx Alcohol Use: No Hx Substance Use: No substance use type: does not use Physical Exam Vital Signs Last Vital Signs Temp 36.7 C 01/24/25 07:16 Pulse 55 L 01/24/25 12:34 Resp 16 01/24/25 12:34 BP 139/63 01/24/25 12:34 Pulse Ox 90 01/24/25 12:34 O2 Del Method Room Air 01/24/25 12:34 O2 Flow Rate 2 01/15/25 08:15 Testing Laboratory Results 01/24/25 06:21 01/24/25 06:21 PT 11.1 Seconds (9.0-12.0) 01/13/25 20:15 INR 1.0 (0.9-1.1) 01/13/25 20:15 Hemoglobin A1c 7.5 % (4.5-5.6) H 01/14/25 07:01 Urine Color Yellow 01/13/25 23:16 Urine Appearance Clear (Clear) 01/13/25 23:16 Urine pH 5.5 (4.5-7.5) 01/13/25 23:16 Ur Specific [place] 1.022 (1.000-1.030) 01/13/25 23:16 Urine Protein Negative (Negative) 01/13/25 23:16 Urine Glucose (UA) 3+ (Negative) H 01/13/25 23:16 Urine Ketones Trace (Negative) H 01/13/25 23:16 Urine Nitrite Negative (Negative) 01/13/25 23:16 Ur Leukocyte Esterase Negative (Negative) 01/13/25 23:16 Urine WBC (Auto) 0-5 /hpf (0-5) 01/13/25 23:16 Urine RBC (Auto) 0-2 /hpf (0-2) 01/13/25 23:16 U Hyaline Cast (Auto) 0-2 /lpf (0-2) 01/13/25 23:16 U Epithel Cells (Auto) 0-2 /hpf (0-2) 01/13/25 23:16 Urine Bacteria (Auto) 4+ (None Seen) H 01/13/25 23:16 01/18/25 20:05 Aerobic Blood Culture - Final Blood No growth in Aerobic bottle after 5 days. Anaerobic Blood Culture - Final No growth in Anaerobic bottle after 5 days. 01/18/25 20:05 Aerobic Blood Culture - Final Blood No growth in Aerobic bottle after 5 days. Anaerobic Blood Culture - Preliminary Enterococcus faecalis 01/20/25 16:15 Aerobic Blood Culture - Preliminary Blood No growth in Aerobic bottle after 48 hours. Anaerobic Blood Culture - Preliminary No growth in Anaerobic bottle after 48 hours. 01/20/25 16:15 Aerobic Blood Culture - Preliminary Blood No growth in Aerobic bottle after 48 hours. Anaerobic Blood Culture - Preliminary No growth in Anaerobic bottle after 48 hours. 01/14/25 01:09 Aerobic Blood Culture - Final Blood Enterococcus faecalis Anaerobic Blood Culture - Final No growth in Anaerobic bottle after 5 days. 01/14/25 01:09 Aerobic Blood Culture - Final Blood Enterococcus faecalis Anaerobic Blood Culture - Final 01/13/25 23:16 Urine Culture - Final Urine,Clean Catch Enterococcus faecalis 01/24/25 01/24/25 12:02 05:47 POC Glucose 167 H 118 H
--- NOTE | 2025-01-24 13:33 | Post Operative Brief Note ---
Cardiology Brief Post Op Date of Surgery January 24, 2025 Pre & Post Diagnosis Operation Date: 01/24/25 13:00 Preprocedure diagnosis: Enterococcus faecalis bacteremia, rule out valvular vegetation. Postprocedure diagnosis: No valvular vegetation. Findings suggestive of left pleural effusion. Procedure Transesophageal echocardiogram procedure: The patient's vital signs were monitored via the standard fashion. After informed consent is obtained timeout was performed the patient was sedated with the assistance of the anesthesia team. The left ventricular ejection fraction was normal. Mild aortic valve sclerosis at stenosis was present. There was no evidence of valvular vegetation. A small PFO was present with trace [id number] interatrial shunt. An incidental finding suggestive of a left pleural effusion is noted for which a chest x-ray has been ordered for further assessment. Associate Embalmer/Funeral Director Александр Zuniga DO Sl[place] Emely [place], Ariana Estimated Blood Loss 0 Findings Consistent with Post-Op Diagnosis Anesthesia Type MAC Complications none
[2025-01-24] MEDS ORDERED: LIDOCAINE 2% 2 ML VIAL/AMP(20MG/ML) INFIL ONE (13:38)
[2025-01-24] MEDS ORDERED: PROPOFOL IV EMULSION 10 MG/ML 20 ML VIAL IV ONE (13:38)
[2025-01-24] MEDS: BENZOCAINE/TETRACAIN/BUTAM 50 APPLN/5 GM CAN EXT ONE (13:53)
--- NOTE | 2025-01-24 14:42 | XRay Report ---
XR chest 1V portable CLINICAL HISTORY: left pleural effusion COMPARISON STUDY: 01/13/2025 FINDINGS: Stable CABG. Heart size and pulmonary vasculature are normal. There is a small left pleural effusion and mild associated consolidation at the left lung base. Otherwise the lungs remain aerated . IMPRESSION: Small left pleural effusion. ACT 112: Negative or not required by law. Electronically signed by: Marcus Garcia M.D. 01/24/2025 2:41 PM
--- NOTE | 2025-01-24 16:03 | Anesthesiology Progress Note ---
Date of Service January 24, 2025 Anesthesia Post Procedure Vital Signs Vital Signs: Temp Pulse Pulse Resp BP Pulse Ox O2 Del Method 01/24/25 14:58 52 L 18 150/74 H 96 Room Air 01/24/25 14:32 53 L 20 143/86 H 96 Room Air 01/24/25 14:00 55 L 16 140/67 93 Room Air 01/24/25 13:45 57 L 16 128/67 92 Room Air 01/24/25 13:30 57 L 16 127/66 90 Oxymask 01/24/25 12:34 55 L 16 139/63 90 Room Air 01/24/25 07:16 36.7 C 62 16 121/68 90 Room Air 01/23/25 22:56 36.9 C 67 16 138/63 93 Room Air O2 Flow Rate 01/24/25 14:58 01/24/25 14:32 01/24/25 14:00 01/24/25 13:45 01/24/25 13:30 2 01/24/25 12:34 01/24/25 07:16 01/23/25 22:56 Pain Intensity Left Ribs: Pain Intensity: 5 Transfer of Care Handoff Completed per policy Notes Mental Status: alert / awake / arousable Patient Amnestic to Procedure: Yes Nausea / Vomiting: adequately controlled Pain: adequately controlled Airway Patency, RR, SpO2: stable & adequate BP & HR: stable & adequate Hydration State: stable & adequate Anesthetic Complications: no major complications apparent and Pt Satisfied with anesthetic care
--- NOTE | 2025-01-24 16:09 | Hospitalist Progress Note ---
Date of Service January 24, 2025 Assessment & Plan (1) Bacteremia: (2) Weakness: Plan 74-year-old male with past medical history significant for diabetes, dyslipidemia, hypertension, history of CAD status post CABG, benign familial tremor, moderate major depression who lives with his girlfriend comes because of weakness and ambulatory dysfunction and he was hypoxic and hypotensive for the EMS. #Enterococcus bacteremia -Secondary to UTI -Urine and Blood culture grew Enterococcus faecalis -ID evaluated 01/19, recommended switching to amp -ID recommended adding CTX on 01/20 -Vanc switched to amp on 01/19 -Repeat Blood cultures 01/18 growing E. faecalis -Blood cx 01/20, NGTD -TTE no evidence of vegetation -Afebrile x 48hours Plan -ERASMO today without vegetations -D/w ID, Dr Friedman who recommends IV amp x 4 weeks -PICC line ordered -If home care and equipment can be arranged, he can possibly be dc tomorrow #Elevated Cr -Cr increased to 1.47 today -His baseline appears to be around 1-1.2 Plan -Will check urine lytes and eos since he is on ampicillin -He does not appear dry and with his small pleural effusion, hesitant to give IVF -Recheck BMP in AM #L pleural effusion -Pleural effusion incidentally found on ERASMO -CXR confirms small pleural effusion -He is asymptomatic -Recommend repeat CXR in 4 weeks to document resolution #Hypoxia -Resolved #History of CAD status post CABG On aspirin, Plavix, metoprolol succinate and statin #Depression On citalopram #Diabetes Hold home p.o. medications and semaglutide Continue Insulin Sliding scale HbA1c 7.5 GERD On famotidine #Anemia -Normocytic -Mild -Chronic, POA -NO s/s blood loss -Advised he f/u with his PCP for colonoscopy for CRC surveilance DVT prophylaxis-Heparin subcu Full code. I spent a total 55 minutes coordinating, documenting and providing care for this patient excluding time spent in performance of separately billed services Admission and Anticipated Discharge Date Admission Date: January 14, 2025 Subjective Feeling well today. no complaints. Patient denies F/C, CP, palpitations, SOB, dyspnea, abd pain, N/V/D. Patient seen multiple times today. risks and benefits of IV abx d/w patient, he is agreeable Physical Exam Physical Exam: Vitals and labs reviewed General: Well appearing, NAD HEENT: EOMI, PERRLA Neck: Supple Cardiac: RRR no rubs gallops or murmurs Lungs: CTA no rhonchi wheezing or rales Abd: S NT ND BS positive MSK: Full ROM. No obvious deformities Ext: No Edema cyanosis Skin: Warm, Dry Neuro: AOx3 No focal deficits. Psych: Normal Mood Results & Data Results & Data Vital Signs (Past 12 Hours) Vital Signs Temp Pulse Pulse Resp BP Pulse Ox O2 Del Method 01/24/25 14:58 52 L 18 150/74 H 96 Room Air 01/24/25 14:32 53 L 20 143/86 H 96 Room Air 01/24/25 14:00 55 L 16 140/67 93 Room Air 01/24/25 13:45 57 L 16 128/67 92 Room Air 01/24/25 13:30 57 L 16 127/66 90 Oxymask 01/24/25 12:34 55 L 16 139/63 90 Room Air 01/24/25 07:16 36.7 C 62 16 121/68 90 Room Air O2 Flow Rate 01/24/25 14:58 01/24/25 14:32 01/24/25 14:00 01/24/25 13:45 01/24/25 13:30 2 01/24/25 12:34 01/24/25 07:16 Laboratory Results Abnormal lab results 01/23/25 01/23/25 01/24/25 Range/Units 16:39 20:29 05:47 RBC (4.70-6.10) M/uL Hgb (14.0-18.0) g/dl Hct (42.0-52.0) % MPV (9.4-12.4) fL Neut # (Auto) (1.40-6.50) K/uL Lymph # (Auto) (1.20-3.40) K/uL Door # (Auto) (0.11-0.59) K/uL Creatinine (0.6-1.4) mg/dl BUN/Creatinine Ratio (10-20) Glucose (70-99(Fasting)) mg/dl POC Glucose 103 H 140 H 118 H (70-99) mg/dl Calcium (8.6-10.3) mg/dl 01/24/25 01/24/25 01/24/25 Range/Units 06:21 12:02 14:00 RBC 3.72 L (4.70-6.10) M/uL Hgb 10.8 L (14.0-18.0) g/dl Hct 32.3 L (42.0-52.0) % MPV 8.9 L (9.4-12.4) fL Neut # (Auto) 8.79 H (1.40-6.50) K/uL Lymph # (Auto) 0.91 L (1.20-3.40) K/uL Door # (Auto) 0.72 H (0.11-0.59) K/uL Creatinine 1.47 H (0.6-1.4) mg/dl BUN/Creatinine Ratio 8.8 L (10-20) Glucose 127 H (70-99(Fasting)) mg/dl POC Glucose 167 H 157 H (70-99) mg/dl Calcium 8.3 L (8.6-10.3) mg/dl Diagnostic Findings Chest X-Ray 01/24/25 13:33 XR chest 1V portable CLINICAL HISTORY: left pleural effusion COMPARISON STUDY: 01/13/2025 FINDINGS: Stable CABG. Heart size and pulmonary vasculature are normal. There is a small left pleural effusion and mild associated consolidation at the left lung base. Otherwise the lungs remain aerated. IMPRESSION: Small left pleural effusion. ACT 112: Negative or not required by law. Electronically signed by: Marcus Garcia M.D. 01/24/2025 2:41 PM
[2025-01-24] MEDS ORDERED: INSULIN ASPART PER UNIT CHARGE SC SCH (21:00)
[2025-01-25 06:55] LABS: Anion Gap 8.0 (3-11); Blood Urea Nitrogen 13.0 mg/dl (6-23); Calcium 8.3 mg/dl (8.6-10.3); Carbon Dioxide 25.0 mmol/L (21-32); Chloride 106.0 mmol/L (98-107); Creatinine Clr Calc Pharmacy 54.4 ml/min; Glucose 124.0 mg/dl (70-99(Fasting)); Potassium 4.0 mmol/L (3.5-5.1); Sodium 139.0 mmol/L (136-145)
--- NOTE | 2025-01-25 14:58 | Hospitalist Progress Note ---
Date of Service January 25, 2025 Assessment & Plan (1) Bacteremia: (2) Weakness: Plan 74-year-old male with past medical history significant for diabetes, dyslipidemia, hypertension, history of CAD status post CABG, benign familial tremor, moderate major depression who lives with his girlfriend comes because of weakness and ambulatory dysfunction and he was hypoxic and hypotensive for the EMS. #Enterococcus bacteremia -Secondary to UTI -Urine and Blood culture grew Enterococcus faecalis -ID evaluated 01/19, recommended switching to amp -ID recommended adding CTX on 01/20 -Vanc switched to amp on 01/19 -Repeat Blood cultures 01/18 growing E. faecalis -Blood cx 01/20, NGTD -ERASMO no evidence of vegetation Plan -D/w ID, Dr Friedman who recommends IV amp x 4 weeks -Midline placed. Treatment plan given to CM today -If home care and equipment can be arranged, he can be dc tomorrow #Elevated Cr -Cr increased to 1.47 yesterday but improved to 1.2 today -His baseline appears to be around 1-1.2 -Low suspicion for AIN given improvement Plan -Recheck BMP in one week as OP #L pleural effusion -Pleural effusion incidentally found on ERASMO -CXR confirms small pleural effusion -He is asymptomatic -Recommend repeat CXR in 4 weeks to document resolution, patient agreeable to plan #Hypoxia -Resolved #History of CAD status post CABG On aspirin, Plavix, metoprolol succinate and statin #Depression On citalopram #Diabetes Hold home p.o. medications and semaglutide Continue Insulin Sliding scale HbA1c 7.5 GERD On famotidine #Anemia -Normocytic -Mild -Chronic, POA -NO s/s blood loss -Advised he f/u with his PCP for colonoscopy for CRC surveillance DVT prophylaxis-Heparin subcu Full code. I spent a total 49 minutes coordinating, documenting and providing care for this patient excluding time spent in performance of separately billed services Admission and Anticipated Discharge Date Admission Date: January 14, 2025 Subjective Feeling well today. no complaints. Patient denies F/C, CP, palpitations, SOB, dyspnea, abd pain, N/V/D. Physical Exam Physical Exam: Vitals and labs reviewed General: Well appearing, NAD HEENT: EOMI, PERRLA Neck: Supple Cardiac: RRR no rubs gallops or murmurs Lungs: CTA no rhonchi wheezing or rales Abd: S NT ND BS positive MSK: Full ROM. No obvious deformities Ext: No Edema cyanosis Skin: Warm, Dry Neuro: AOx3 No focal deficits. Psych: Normal Mood Results & Data Results & Data Vital Signs (Past 12 Hours) Vital Signs Temp Pulse Resp BP BP Pulse Ox O2 Del Method 01/25/25 14:33 36.7 C 59 L 15 125/67 95 Room Air 01/25/25 13:21 Room Air 01/25/25 11:26 36.4 C L 55 L 15 121/66 97 Room Air 01/25/25 07:25 36.6 C 55 L 16 140/63 94 Room Air 01/25/25 03:14 36.8 C 56 L 16 148/59 H 92 Room Air Laboratory Results Abnormal lab results 01/24/25 01/24/25 01/25/25 Range/Units 16:25 20:21 06:08 Glucose 124 H (70-99(Fasting)) mg/dl POC Glucose 134 H 135 H (70-99) mg/dl Calcium 8.3 L (8.6-10.3) mg/dl 01/25/25 01/25/25 Range/Units 08:14 11:24 Glucose (70-99(Fasting)) mg/dl POC Glucose 192 H 168 H (70-99) mg/dl Calcium (8.6-10.3) mg/dl
[2025-01-25 22:40] VITALS: RESP 16
[2025-01-26 08:05] VITALS: BP 169/73; PULSE 56; TEMP 97.9; O2SAT 91
--- NOTE | 2025-01-26 14:12 | Discharge Summary ---
Date of Service January 26, 2025 Admission HPI Per Admitting Provider 74-year-old male with past medical history significant for diabetes, dyslipidemia, hypertension, history of CAD status post CABG, benign familial tremor, moderate major depression who lives with his girlfriend comes because of weakness and ambulatory dysfunction and he was hypoxic and hypotensive for the EMS. Currently on 2 L oxygen. Had transient chest pain as per ER. Currently denies any chest pain. No cough. No headache. No back pain. No abdominal pain. He says he always has some pain in the legs. Says he ambulates with a cane. No nausea vomiting. No diarrhea. Says no burning micturition. Blood pressure somewhat soft. Patient having tremors now. Says he is feeling cold. Past medical history. As mentioned above. Past surgical history. Right shoulder arthroscopy. CABG. Colonoscopy dental surgery. Insertion of intra-aortic balloon assist device. Repair of right biceps tendon. Social history. Quit smoking in 2000. Smoked 1 pack a day for 33 years. No alcohol use. No drug use. Family history. Sister has COPD. Brother had cancer. Brother had [place]. Admission Exam Per Admitting Provider General- Not in distress Head- atraumatic Eyes- PERRL. ENT- oropharynx clear Neck- supple, no JVD. Lungs- clear to auscultation no wheezing or crackles Heart- regular rhythm; no murmur, no gallop. Abdomen- normal bowel sounds, soft, nontender, no distension Extremities- no pretibial edema, no erythema seen Neuro- alert, oriented PERRL, no facial palsy; no dysarthria; moves extremities Principal Diagnosis Enterococcus bacteremia Discharge Exam Constitutional: WD/WN, vitals as above, NAD, sitting up in bed, pleasant, conversing easily Respiratory: normal respiratory effort, lungs clear to auscultation, no wheeze, rales, rhonchi. Normal insp/exp effort, no accessory muscle use Cardiovascular: RRR, no murmur, no edema Vessels: no JVD or carotid bruit Chest: normal inspection of chest Abdomen: normal bowel sounds, soft, nontender, no hepatosplenomegaly Musculoskeletal: no cyanosis or clubbing, extremities motor strength 5/5 Skin: no rashes, warm and dry normal turgor Neurologic: PERRL, EOMI, accommodation nl, no face palsy, no dysarthria CN's II- XI intact bilaterally and moves all extremities Psychiatric: A+Ox3, euthymic affect Discharge Data Allergies Allergy/AdvReac Type Severity Reaction Status Date / Time No Known Allergies Allergy Verified 01/13/25 21:57 Consultations 01/13/25 23:13 ED Decision to Admit Stat 01/16/25 12:56 Consult Infectious Diseases Routine 01/23/25 09:07 Consult Cardiology Routine Procedures Performed Operation Date: 01/24/25 13:00 Actual Procedures p Echo Transesophageal - DO chelsey Patiño Echo Color Flow - DO chelsey Patiño Doppler Echo Limited/Follow Up - Александр Zuniga DO Ordered Studies 01/13/25 22:15 CT head/brain wo con Stat 01/13/25 22:35 CT angio chest PE protocol Stat Hospital Course (1) Bacteremia: (2) Weakness: Plan 74-year-old male with past medical history significant for diabetes, dyslipidemia, hypertension, history of CAD status post CABG, benign familial tremor, moderate major depression who lives with his girlfriend comes because of weakness and ambulatory dysfunction and he was hypoxic and hypotensive for the EMS. #Enterococcus bacteremia -Secondary to UTI -Urine and Blood culture grew Enterococcus faecalis -ID evaluated 01/19, recommended switching to amp -Vanc switched to amp on 01/19 -Repeat Blood cultures 01/18 growing E. faecalis -Blood cx 01/20, NGTD -ERASMO no evidence of vegetation -ID recommended IV ampicillin for 4 weeks; patient was discharged home with home health. #Elevated Cr -Cr increased to 1.47 yesterday but improved to 1.2 today -His baseline appears to be around 1-1.2 -Low suspicion for AIN given improvement Plan -Recheck BMP in one week as OP #L pleural effusion -Pleural effusion incidentally found on ERASMO -CXR confirms small pleural effusion -He is asymptomatic -Recommend repeat CXR in 4 weeks to document resolution, patient agreeable to pl an Total Time Total Time Spent Total Time Spent (In Minutes): 56 Total Time Includes: Examination of the Patient, Discharge Planning, Medication Reconciliation, Communication With Other Providers and Other Discharge Plan Discharge Items Patient Disposition: Home - Home Health Services Reason For Visit: Weakness, Fever, Chest Discomfort Condition on Discharge: Fair Activity: Resume your previous activity Non-emergency contact: Primary Care Provider Call non-emergency contact if: you have any medication questions and your symptoms worsen Follow-up/Referrals: Kayla Reich PA-C [Primary Care Provider] - (Date & Time 02/01/2025 3:40 PM Provider: Kayla Reich PA-C [facility], [facility]) Diet: Regular Addtl Attending Provider Instructions: You were admitted to the hospital due to infection in your blood. You were evaluated by cardiology, infectious disease during the hospitalization. You have been prescribed antibiotic treatment to be completed as instructed; total of 4 weeks. Please follow-up with your primary care doctor for follow-up. You will need weekly CBC, BMP, CRP to monitor the antibiotic treatment. Pending Studies at Discharge: No Stand-Alone Forms: My [facility] BackTrack, Smoking Cessation Medications and DC Order Prescriptions: Continued metoprolol succinate 50 mg tablet extended release 24 hr 50 mg PO QAM clopidogrel 75 mg tablet 75 mg PO QAM triamcinolone acetonide 0.1 % Cream 1 applic TOPICAL DIRECTED PRN (Reason: NEEDED.) Rx Instructions: APPLY BID, 3 X WEEK NEEDED. acetaminophen 650 mg Tablet Extended Release 650 mg PO Q8H PRN (Reason: Pain) Ozempic 2 mg/dose (8 mg/3 mL) pen injector 2 mg SUBCUT WK Rx Instructions: MONDAYS atorvastatin 40 mg tablet 40 mg PO QAM metformin 1,000 mg tablet 1,000 mg PO BIDM gabapentin 300 mg capsule 600 mg PO AMHS famotidine 10 mg tablet 10 mg PO QAM Jardiance 25 mg tablet 25 mg PO QAM aspirin 81 mg Tablet,Delayed Release (Dr/Ec) 81 mg PO QAM One A Day Men Complete 240-25-300 mcg Tablet 1 tab PO QAM citalopram 20 mg tablet 20 mg PO HS Discharge Orders: Discharge Order (Routine); Ordered 01/26/25 Ordered By: Cristiano Engle/Other Patient Handouts: Managing Type 2 Diabetes Admission Data Admit Date/Time: 01/14/25 00:45 Attending Provider: Cristiano Cannon Admit Provider: Kolby Hahn Primary Care Provider: Kayla Reich Other Providers: Kolby Hahn; Arpit Shepard; Candy Moulton; Vincenzo Acevedo I.; Marco Tucker II; Tracee Ge; Ramses Delgadillo; Mason Borja; Andrew Javed; [facility]; Odilia Damon Other Interventions: Discharge Summary Assessment (RN) Last Done: 01/26/25 13:54
== END 2025-01-26 14:31 | disposition home health service (06) | DRG 690 ==
LOC: ED 20:08 → EDINP 01-14 00:45 → SUATTDRO 01-14 00:45 → EDINP 01-14 02:07 → 2W 01-15 02:00 → 3E 01-22 23:10